=== PATIENT | female | born 1930 | race Caucasian/White ===

== ENCOUNTER 2016-08-04 11:18 | Inpatient (IN) | payer OTHER, MEDICARE ==
[~2016-08-04] VITALS: Ht 149.9 cm; Wt 99.8 kg
[~2016-08-04 11:18] MED LIST: AMLODIPINE BES2.5 M1 PO; AMLODIPINE BES2.5 MG PO; ANTIVERT 12.512.5 MG PO; APAP325 MG PO; ATORVASTATIN CA20 M1 PO; ATORVASTATIN CA20 MG PO; AUGMENTIN 875875 MG PO; BENAZEPRIL HYDR40 MG PO; CALCIUM + D 6001 TAB PO; CALCIUM600 M2 PO; COUMADIN 1 MG TA1 MG PO; COUMADIN 2 MG TA2 MG PO; COUMADIN 3 MG TA3 MG PO; COUMADIN3 M1 PO; COZAAR 100MG T100 MG PO; COZAAR 50MG TAB50 MG PO; DOXYCYCLINE MO100 MG PO; DOXYCYCLINE100 MG PO; DUONEB 3 MG/3 ML3 ML INH/SOL; ELOCON0.1%; ESCITALOPRAM OX20 MG PO; ESCITALOPRAM20 MG PO; FLOVENT HF0.11 MG/Ac INH; FUROSEMIDE40 M1 PO; FUROSEMIDE40 MG PO; HYDROXYZINE50 MG PO; K-TAB ER20 MEQ PO; LASIX40 M1 PO; LASIX40 MG PO; LIDODERM 5% PAT1 PAT EXT; MASON NATURAL2000 IU PO; MECLIZINE HCL25 M1 PO; METOPROLOL SUC100 MG PO; METOPROLOL SUCC50 M2 PO; MIRALAX17 G1 PO; MIRALAX17 GM PO; MULTI-DAY VITA1 EACH PO; Mucinex PO; NATURE'S BLEND400 IU PO; OXYCODONE HYDRO10 M1 PO; OXYCODONE5 MG PO; PERCOCET 325 MG1 TA2 PO; PREDNISONE 20MG20 MG PO; PRILOSEC 20MG C20 MG PO; PRILOSEC10 MG PO; PROLIXIN DEC25 MG/ML IV; ROXICODONE5 MG PO; Robitussin PO; TOPROL XL 50MG50 MG PO; TRIAMCINOL0.1 %/453 TOP; TYLENOL500 MG PO; VESICARE 10MG10 MG PO; VESICARE10 MG PO; VITAMIN D1000 IU PO; VITAMIN D31000 IU PO; WARFARIN SODIUM2 M1 PO; WARFARIN SODIUM2 MG PO
--- NOTE | 2016-08-04 11:20 | ED CARDIAC/CP/PALPITATIONS ---
History of Present Illness General Chief Complaint: Dyspnea (COPD, CHF, Other) Stated Complaint: SHORTNESS OF BREATH, CHF Source: patient, family, old records, EMS Exam Limitations: no limitations Vital Signs & Intake/Output Vital Signs & Intake/Output Vital Signs Date Time Temp Pulse Resp B/P Pulse O2 O2 Flow FiO2 Ox Delivery Rate 08/06 1600 95 Nasal 5.0L Cannula 08/06 1530 98.8 78 20 132/74 94 Nasal 5.0L Cannula 08/06 1029 136/70 08/06 1028 136/70 08/06 0822 98.1 75 20 136/70 96 Nasal 6.0L Cannula 08/06 0800 Nasal 6.0L Cannula 08/06 0122 72 96 08/06 0036 98.2 73 20 118/68 96 BIPAP 08/06 0000 CPAP 6.0L 08/05 2239 68 94 ED Intake and Output 08/06 0000 08/05 1200 Intake Total 800 120 Output Total 690 300 Balance 110 -180 Intake, IV 20 Intake, Oral 780 120 Output, Urine 690 300 Allergies Coded Allergies: Penicillins (RASH 04/12/16) adhesive tape (RASH/ITCHING 04/12/16) cephalexin (HIVES 04/12/16) Reconcile Medications Albuterol Sulfate 0.63 MG/3 ML VIAL.NEB 1 Vial NEB Q2 HRS NEEDED PRN SHORTNESS OF BREATH (Reported) Amlodipine Besylate 5 MG TABLET 1 TAB PO DAILY HIGH BLOOD PRESSURE (Reported) Atorvastatin Calcium 20 MG TABLET 1 TAB PO DAILY CHOLESTEROL (Reported) Calcium Carbonate (TUMS) 200 MG CALCIUM (500 MG) TAB.CHEW 3 TAB PO BID SUPPLEMENT (Reported) Calcium Carbonate (Calcium) 600 MG TABLET 1 TAB PO DAILY SUPPLEMENT (Reported ) Escitalopram Oxalate 20 MG TABLET 0.5 TAB PO DAILY MENTAL HEALTH (Reported) Furosemide 40 MG TABLET 2 TAB PO QAM DIURETIC (Reported) Furosemide (Lasix) 40 MG TABLET 1 TAB PO 1700 DIURETIC (Reported) Metoprolol Succinate 50 MG TAB.ER.24H 1 TAB PO DAILY HEART/BP (Reported) Multivitamin (Multi-Day Vitamins) 1 EACH TABLET 1 TAB PO DAILY SUPPLEMENT ( Reported) Pantoprazole Sodium (Protonix) 40 MG TABLET.DR 1 TAB PO DAILY ACID REFLUX ( Reported) Polyethylene Glycol 3350 (Miralax) 17 GRAM POWD.PACK 1 PAC PO DAILY PRN CONSTIPATION (Reported) Polyethylene Glycol 3350 (Miralax) 17 GM POWD.PACK 0.5 PAC PO DAILY GI ( Reported) dissolve in water Potassium Chloride (K-Tab ER) 20 MEQ TABLET.ER 1 TAB PO DAILY SUPPLEMENT ( Reported) Sennosides (Senna) 8.6 MG TABLET 2 TAB PO BED TIME PRN CONSTIPATION (Reported ) Solifenacin Succinate (Vesicare) 10 MG TABLET 1 TAB PO Q48 BLADDER (Reported) Warfarin Sodium 2 MG TABLET 1 TAB PO AD BLOOD THINNER (Reported) Warfarin Sodium (Coumadin) 3 MG TABLET 1 TAB PO AD BLOOD THINNER (Reported) Triage Nurses Notes Reviewed? yes Onset: Gradual Duration: getting worse Timing: recent history Radiation: no radiation Activities at Onset: none HPI: PT is a 85-year-old woman with past medical history of hypertension, Afib on coumadin, AOrtic valve (bioprosthetic), obstructive sleep apnea on CPAP, chronic LE edema on lasix, pulmonary HTN, CHF, DEMENTIA, patient had a right hip fracture repaired at [facility] BY DR MICHELLE 3 weeks ago and since patient has been living in [facility] course patient was brought in by ambulance from facility for a 5 day history of gradual onset of worsening dyspnea and generalized weakness and is noted through W 10 altered mental status. Patient since a rib fracture in the fall has been on oxygen 2 L at all times however it is noted that W 10 dictates that 4 L oxygen was administered today for shortness breath and which her saturation was 88%. It is noted a patient per OB 10 received 40 mg of by mouth Lasix at 9 AM today. EMS put a nitroglycerin paste on patient's chest Patient does complain of persistent cough tactile fevers and generalized weakness and fatigue No change in lower extremity swelling Denies any chest pain and arm pain jaw pain nausea vomiting (KELTON SUERO) Past History Travel History Traveled to [place] past 21 day No Medical History Any Pertinent Medical History? see below for history Neurological: NONE EENT: NONE Cardiovascular: AFIB, aortic stenosis, hyperlipidemia, HYPERTENSION Respiratory: 2-3L NC DEPENDENT Gastrointestinal: constipation Hepatic: NONE Renal: NONE Musculoskeletal: osteoarthritis, osteoporosis, CELLULITIS CONTACT DERMATITIS Psychiatric: NONE Endocrine: NONE Blood Disorders: NONE Cancer(s): NONE PLASTERER SPOT/Reproductive: NONE History of MRSA: No History of VRE: No History of CDIFF: No Surgical History Surgical History: AORITC VALVE REPLACEMENT right shoulder replacement left hip replacement Psychosocial History Who do you live with Family Services at Home None What is your primary language Northern Irish Family History Hx Contributory? No (KELTON SUERO) Review of Systems Review of Systems Constitutional: Reports: see HPI, fever, malaise, weakness. EENTM: Reports: no symptoms. Respiratory: Reports: see HPI, cough, short of breath. Cardiovascular: Reports: see HPI, peripheral edema. Denies: chest pain. GI: Reports: no symptoms. Genitourinary: Reports: no symptoms. Musculoskeletal: Reports: no symptoms. Skin: Reports: no symptoms. Neurological/Psychological: Reports: no symptoms. Hematologic/Endocrine: Reports: no symptoms. Immunologic/Allergic: Reports: no symptoms. All Other Systems: Reviewed and Negative (KELTON SUERO) Physical Exam Physical Exam General Appearance: obese, MILD RESPIRATORY DISTRESS Respiratory: chest non-tender, quiet respiration, decreased breath sounds, wheezing, respiratory distress (MILD) Cardiovascular: irregularly irregular Comments: HEENT: Normal EENT exam, extraocular motion intact, no nystagmus. Pupils equally round and reactive to light and accommodation. Nose is atraumatic. External auditory canal and Tympanic membranes clear. Pharynx normal. No swelling or edema. Neck: Supple, no lymphadenopathy, normal range of motion without pain or tenderness Back: Nontender, no CVA tenderness. Cardiovascular: Regular rate and rhythms no murmurs rubs or gallops, normal JVP Abdomen: Soft, nontender nondistended, no appreciable organomegaly. Normal bowel sounds. No ascites Extremity: +1 pitting edema bilateral lower extremities, no calf tenderness to palpation, normal and equal pulses. Pedal pulses +2 bilaterally Neuro: Alert oriented x3, motor sensory normal, Skin: No appreciable rash on exposed skin, skin is warm and dry. Psych: Mood and affect is normal, memory and judgment is normal. Core Measures ACS in differential dx? Yes Severe Sepsis Present: No Septic Shock Present: No (KETLON SUERO) Progress Differential Diagnosis: AMI, aortic dissection, atrial fibrillation, cholecystitis, CHF/pulm edema, costochondritis, hyperkalemia, hypovolemia, hyperthyroid, hyperventilation, intracranial hemorrhage, musculoskeletal pain, myocarditis, pancreatitis, pericarditis, pneumonia, pneumothorax, PSVT, pulmonary embolism, PUD/GERD, PVCs/PACs, respiratory failure, rib fracture, sepsis, unstable angina, V-fib/V-Tach, WPW syndrome Plan of Care: Orders Procedure Date/time Status PROTHROMBIN TIME 08/07 599 Active CBC WITHOUT DIFFERENTIAL 08/07 599 Active BASIC ELECTROLYTES PLUS BUN&CR 08/07 599 Active Ward, Insertion/Removal/Asses 08/06 1026 Active C.DIFFICILE 08/06 0918 Active HEPATIC FUNCTION PANEL 08/06 0642 Complete Lab Add-on Test 08/06 UNK Active OXYGEN 08/05 UNK Complete OXYGEN DAILY CHARGE 08/05 UNK Complete CONTIN. POS. AIRWAY PRESS. CHG 08/05 UNK Complete Current Medications Sig/Saulo Start time Last Medication Dose Stop Time Status Admin Docusate Sodium 100 MG DAILY NEEDED PRN 08/05 1530 AC (Colace) Senna 187 MG AT BEDTIME PRN 08/05 1530 AC (Senokot) Polyethylene Glycol 17 GM DAILY PRN 08/04 1930 AC (Miralax) Laboratory Tests 08/06/16 0642: Anion Gap 7, Estimated GFR > 60, BUN/Creatinine Ratio 17.1, Magnesium 2.0, Total Bilirubin 1.6 H, Direct Bilirubin 0.5 H, AST 22, ALT 33, Alkaline Phosphatase 114, Total Protein 6.6, Albumin 3.6, PT 27.2 H, INR 2.62 H, CBC w Diff NO MAN DIFF REQ, RBC 3.68 L, MCV 88.3, MCH 28.1, RDW 19.2 H, MPV 9.5, Gran % 84.3 H, Lymphocytes % 3.5 L, Monocytes % 7.3, Eosinophils % 4.3, Basophils % 0.6, Absolute Granulocytes 10.2 H, Absolute Lymphocytes 0.4 L, Absolute Monocytes 0.9 H, Absolute Eosinophils 0.5, Absolute Basophils 0.1, PUBS MCHC 31.9 L Microbiology 08/06 1555 STOOL: Clostridium difficile Toxin A & B - RECD Patient initially was noted to have mild respiratory distress however with 6 L with a nonrebreather oxygen saturation was noted to be 94% and patient has has been stable since. Patient has concerns of CHF exacerbation, however CT scan is pending for rule out pulmonary embolism. Family members were hesitant on the administering antibiotics for patients for concerns of pneumonia and which they want to wait until the CT scan was resulted for concerns of unwarranted antibiotics and concerns of C. difficile. After CT scan was resulted there is no consent a pulmonary embolism however there are concerns of CHF and infectious process such as pneumonia is not officially ruled out and which patient does present with fevers not feeling well and cough and due to multiple comorbidities the patient will be given prophylactic treatment for hospital-acquired pneumonia patient does have a cephalosporin allergy and with moxifloxacin was administered Discussed admission with Dr. KNOWLES who discussed admission with Dr. Shell who will admit to telemetry (MYLES ANTONIO,KELTON) Diagnostic Imaging: Viewed by Me: CT Scan. Radiology Impression: SEE COMMENTS Initial ED EKG: ATRIAL FIBRILLATION NOTED IRREGULAR HEART RATE 92 BPM Comments: PATIENT: DANYELL PETER PRESENT AGE: 85 PATIENT ACCOUNT NO: [id number] : [birth year] LOCATION: [facility] ORDERING PHYSICIAN: KELTON ANTONIO SERVICE DATE: 08/04/16 EXAM TYPE: CAT - CTA CHEST-PULMONARY EMBOLISM EXAMINATION: CT ANGIOGRAM OF THE CHEST WITH AND WITHOUT CONTRAST (CT PULMONARY ANGIOGRAM FOR PE) CLINICAL INFORMATION: Recent surgery. Elevated d-dimer. Shortness of breath. COMPARISON: 06/12/2016. TECHNIQUE: Prior to contrast administration, noncontrast localization images were obtained. Subsequently, multidetector volumetric imaging was performed from the thoracic inlet to below the diaphragms following the administration of 125 mL Optiray 350 intravenous contrast. No contrast reaction reported Sagittal, coronal, and MIP oblique sagittal reformatted images were obtained on the CT workstation, uploaded to PACS, and reviewed. Total exam dose-length product 560.35 mGy-cm FINDINGS: QUALITY OF STUDY/CONTRAST BOLUS: Satisfactory contrast bolus. Evaluation is limited by patient's respiratory motion and streak artifact from her arms being down, as well as from the contrast bolus. PULMONARY ARTERIES: No central pulmonary emboli. Evaluation of the segmental and subsegmental pulmonary arteries is limited. THORACIC AORTA: No evidence of thoracic aortic aneurysm. Cannot evaluate for dissection, due to lack of contrast. LUNG: Patchy bilateral consolidations. Prominent interstitial lung markings and groundglass opacities. Lungs are hypoinflated. No evidence of pneumothorax. PLEURA: Trace bilateral pleural effusions. MEDIASTINUM: Cardiomegaly. Extensive coronary artery calcifications. The patient is status post coronary artery bypass grafting. Aortic valve prosthesis. No pericardial effusion. Mediastinal lymphadenopathy. For example, there is a 2.2 cm precarinal lymph node. This appears increased since the prior study. No evidence of septal bowing or right heart strain. CHEST WALL/AXILLA: No evidence of axillary lymphadenopathy. Evaluation is limited due to streak artifact. OSSEOUS STRUCTURES: Diffuse osteopenia. Multiple old healed right rib fractures and left rib fractures. Bilateral shoulder arthroplasties. Chronic compression deformity T9. UPPER ABDOMEN: Reflux of contrast into the hepatic veins. Vascular calcifications. Gaseous distention of the partially visualized bowel, better appreciated on the scanogram. IMPRESSION: 1. Markedly limited evaluation, as detailed above. No central pulmonary embolus identified. 2. Patchy bilateral lung consolidations combined with interstitial prominence and small bilateral pleural effusions in the setting of cardiomegaly. The constellation of these findings is most consistent with congestive heart failure exacerbation, although a superimposed infectious process is not excluded. 3. Reflux of contrast into the hepatic veins is most suggestive of right heart dysfunction. 4. Mediastinal lymphadenopathy, increased since the prior study. 5. Other nonacute findings, as above. (KELTON SUERO) Departure Departure Disposition: STILL A PATIENT Condition: Stable Clinical Impression Primary Impression: CHF (congestive heart failure) Secondary Impressions: Pneumonia Referrals: TONIA VASQUEZ,CORONA Mota Departure Forms: Customer Survey General Discharge Information Admission Note Spoke With: CAMRYN SHELL MD Documentation of Exam: Documentation of any treatments & extenuating circumstances including Concerns Regarding Discharge (functional status, medication knowledge or non-compliance, living conditions, etc.) that warrant an admission rather than observation: [Dr. Shell will admit the patient under telemetry for concern of CHF and hospital- acquired pneumonia. Patient requires IV diuresis, cardiology consultation, echocardiogram, repeat blood work, IV antibiotics, blood cultures currently pending. Outpatient treatment at this time would be medically harmful] (KELTON SUERO) PA/ADMINISTRATIVE DIRECTOR Co-Sign Statement Statement: ED Attending supervision documentation- x I saw and evaluated the patient. I have also reviewed all the pertinent lab results and diagnostic results. I agree with the findings and the plan of care as documented in the PA's/ADMINISTRATIVE DIRECTOR's documentation. [] I have reviewed the ED Record and agree with the PA's/ADMINISTRATIVE DIRECTOR's documentation. [] Additions or exceptions (if any) to the PAs/ADMINISTRATIVE DIRECTOR's note and plan are summarized below: [] (BENSON VASQUEZ,JOSEPHINE) Critical Care Note Critical Care Note Critical Care Time: non-applicable (MYLES ANTONIO,KELTON) and subsegmental pulmonary arteries is limited. THORACIC AORTA: No evidence of thoracic aortic aneurysm. Cannot evaluate for dissection, due to lack of contrast. LUNG: Patchy bilateral consolidations. Prominent interstitial lung markings and groundglass opacities. Lungs are hypoinflated. No evidence of pneumothorax. PLEURA: Trace bilateral pleural effusions. MEDIASTINUM: Cardiomegaly. Extensive coronary artery calcifications. The patient is status post coronary artery bypass grafting. Aortic valve prosthesis. No pericardial effusion. Mediastinal lymphadenopathy. For example, there is a 2.2 cm precarinal lymph node. This appears increased since the prior study. No evidence of septal bowing or right heart strain. CHEST WALL/AXILLA: No evidence of axillary lymphadenopathy. Evaluation is limited due to streak artifact. OSSEOUS STRUCTURES: Diffuse osteopenia. Multiple old healed right rib fractures and left rib fractures. Bilateral shoulder arthroplasties. Chronic compression deformity T9. UPPER ABDOMEN: Reflux of contrast into the hepatic veins. Vascular calcifications. Gaseous distention of the partially visualized bowel, better appreciated on the scanogram. IMPRESSION: 1. Markedly limited evaluation, as detailed above. No central pulmonary embolus identified. 2. Patchy bilateral lung consolidations combined with interstitial prominence and small bilateral pleural effusions in the setting of cardiomegaly. The constellation of these findings is most consistent with congestive heart failure exacerbation, although a superimposed infectious process is not excluded. 3. Reflux of contrast into the hepatic veins is most suggestive of right heart dysfunction. 4. Mediastinal lymphadenopathy, increased since the prior study. 5. Other nonacute findings, as above. Departure Departure Disposition: STILL A PATIENT Condition: Stable Clinical Impression Primary Impression: CHF (congestive heart failure) Secondary Impressions: Pneumonia Referrals: TONIA VASQUEZ,CORONA Mota Departure Forms: Customer Survey General Discharge Information Admission Note Spoke With: CAMRYN SHELL MD Documentation of Exam: Documentation of any treatments & extenuating circumstances including Concerns Regarding Discharge (functional status, medication knowledge or non-compliance, living conditions, etc.) that warrant an admission rather than observation: [Dr. Shell will admit the patient under telemetry for concern of CHF and hospital- acquired pneumonia. Patient requires IV diuresis, cardiology consultation, echocardiogram, repeat blood work, IV antibiotics, blood cultures currently pending. Outpatient treatment at this time would be medically harmful] Critical Care Note Critical Care Note Critical Care Time: non-applicable
--- NOTE | 2016-08-04 11:43 | NUR ---
PT BIBA FROM [facility] FOR EVAL OF INCREASED SOB AND EXACERBATION OF CHF. PT IS 3 WEEKS S/P RIGHT HIP SURGERY. REPORTS SHE HAS HAD PRODUCTIVE COUGH WITH YELLOW MUCUS, SORE THROAT, NASAL CONGESTION, AND HEADACHE FOR 3 DAYS. PER EMS PT WAS GIVING A BREATHING TX, C-PAP, AND 1" NITRO ENROUTE. UPON ARRIVAL, PT 02 SAT AT 82-84% OF 4L O2. PT PLACED ON 100% NON-REBREATHER UPON ARRIVAL AND O2 SAT NOW 98%. PT DENIES CP OR V/D. STATES SHE HAS NOT BEEN ABLE TO TOLERATE FOOD FOR 3 DAYS SECONDARY TO NAUSEA. PT CHANGED INTO GOWN AND PLACED ON BOMBSIGHT SPECIALIST. PACO REIS AT BEDSIDE TO EVALUATE. WILL MONITOR.
--- NOTE | 2016-08-04 12:17 | NUR ---
RESP THERAPIST CALLED TO ADMINISTER COMBI MED NEB TX AND PERFORM ABG.
--- NOTE | 2016-08-04 12:46 | NUR ---
LABS DRAWN. 1ST CULTURES, LAV, YELLOW, BLUE, AND CHAMBERS SENT TO LAB. 20G IV PLACED IN RIGHT AC. FLUSHED PER PROTOCOL. NO REDNESS, SWELLING, PAIN, OR HEAT NOTED AT SITE. LASIX, 60MG, ADMINISTERED PER EMAR. RESPIRATORY AT BEDSIDE TO ADMINISTER TREATMENT AND DRAW ABGS. PT TOLERATED PROCEDURES WELL.
--- NOTE | 2016-08-04 12:57 | RADIOLOGY REPORT ---
EXAMINATION: XR PORTABLE CHEST CLINICAL INFORMATION: Shortness of breath and congestive heart failure. COMPARISON: Chest x-ray 01/02/[address] scan of the chest 04/12/2016. TECHNIQUE: Portable AP view of the chest was obtained. FINDINGS: The lung cerrato are poorly expanded. The cardiac silhouette is prominent and there are increased interstitial markings in the left mid and lower zones and the right midzone. Consolidation at the left base cannot be excluded. There is prominence of the central pulmonary vasculature. There are no definite pleural effusions. There are sequelae of median sternotomy and bilateral shoulder arthroplasties. IMPRESSION: 1. There is cardiomegaly and increased interstitial markings with prominent central pulmonary vasculature, consistent with congestive heart failure. Underlying consolidation at the left base cannot be excluded.
[2016-08-04 13:02] LABS: ABSOLUTE BASOPHIL COUNT 0 /CUMM (0.0-0.2); ABSOLUTE EOSINOPHIL COUNT 0.1 /CUMM (0.0-0.7); ABSOLUTE GRANULOCYTE CT 14.8 /CUMM (1.4-6.5); ABSOLUTE LYMPH COUNT 0.3 /CUMM (1.2-3.4); ABSOLUTE MONOCYTE COUNT 0.8 /CUMM (0.10-0.60); BASOPHIL % 0.1 % (0.0-2.0); EOSINOPHIL % 0.5 % (0-5); GRANULOCYTE % 92.3 % (42.2-75.2); MEAN CORPUSCULAR HGB 27.9 PG (27.0-31.0); MEAN CORPUSCULAR VOLUME 87.3 FL (81.0-99.0); MEAN PLATELET VOLUME 9.6 FL (7.4-10.4); PLATELET COUNT 456 /CUMM (130-400); RBC DISTRIBUTION WIDTH 19.3 % (11.5-14.5); RED BLOOD CELL CT 4.01 /CUMM (4.20-5.40)
[2016-08-04 13:05] LABS: PT 41.7 SEC (9.4-12.5); PTT 35 SEC (25-37)
--- NOTE | 2016-08-04 13:23 | NUR ---
CRITICAL TEST RESULTS [id number] DANYELL PETER 85 F TESTS AND RESULTS: PT 41.7; INR 4.03 Results received and read back by: MONTSERRAT MULTANI Results received date and time: 08/04/16 1324 The following provider was notified of the results, and read the results back: KELTON ANTONIO Notified date and time: 08/04/16 at 1324
--- NOTE | 2016-08-04 13:46 | NUR ---
PERRY CATHETER PLACED. STERILE PROCEDURE MAINTAINED. 270CC OF DARK YELLOW URINE RETURN. PT TOLERATED PROCEDURE WELL. PT TRANSPORTED TO CT-SCAN AT THIS TIME WITH THIS R.N. ACCOMPANYING TO MONITOR.
--- NOTE | 2016-08-04 14:16 | NUR ---
FLU SWAB OBTAINED AND SENT TO LAB.
--- NOTE | 2016-08-04 14:31 | NUR ---
URINE COLLECTED. TRIO SENT TO LAB.
--- NOTE | 2016-08-04 15:15 | NUR ---
VANCOMYCIN ORDERED. PER PACO BUENO, ALL ANTIBIOTICS ARE TO BE HELD UNTIL RESULTS OF CT-SCAN RETURNS PER FAMILY REQUEST.
--- NOTE | 2016-08-04 16:09 | CT SCAN REPORT ---
EXAMINATION: CT ANGIOGRAM OF THE CHEST WITH AND WITHOUT CONTRAST (CT PULMONARY ANGIOGRAM FOR PE) CLINICAL INFORMATION: Recent surgery. Elevated d-dimer. Shortness of breath. COMPARISON: 06/12/2016. TECHNIQUE: Prior to contrast administration, noncontrast localization images were obtained. Subsequently, multidetector volumetric imaging was performed from the thoracic inlet to below the diaphragms following the administration of 125 mL Optiray 350 intravenous contrast. No contrast reaction reported Sagittal, coronal, and MIP oblique sagittal reformatted images were obtained on the CT workstation, uploaded to PACS, and reviewed. Total exam dose-length product 560.35 mGy-cm FINDINGS: QUALITY OF STUDY/CONTRAST BOLUS: Satisfactory contrast bolus. Evaluation is limited by patient's respiratory motion and streak artifact from her arms being down, as well as from the contrast bolus. PULMONARY ARTERIES: No central pulmonary emboli. Evaluation of the segmental and subsegmental pulmonary arteries is limited. THORACIC AORTA: No evidence of thoracic aortic aneurysm. Cannot evaluate for dissection, due to lack of contrast. LUNG: Patchy bilateral consolidations. Prominent interstitial lung markings and groundglass opacities. Lungs are hypoinflated. No evidence of pneumothorax. PLEURA: Trace bilateral pleural effusions. MEDIASTINUM: Cardiomegaly. Extensive coronary artery calcifications. The patient is status post coronary artery bypass grafting. Aortic valve prosthesis. No pericardial effusion. Mediastinal lymphadenopathy. For example, there is a 2.2 cm precarinal lymph node. This appears increased since the prior study. No evidence of septal bowing or right heart strain. CHEST WALL/AXILLA: No evidence of axillary lymphadenopathy. Evaluation is limited due to streak artifact. OSSEOUS STRUCTURES: Diffuse osteopenia. Multiple old healed right rib fractures and left rib fractures. Bilateral shoulder arthroplasties. Chronic compression deformity T9. UPPER ABDOMEN: Reflux of contrast into the hepatic veins. Vascular calcifications. Gaseous distention of the partially visualized bowel, better appreciated on the scanogram. IMPRESSION: 1. Markedly limited evaluation, as detailed above. No central pulmonary embolus identified. 2. Patchy bilateral lung consolidations combined with interstitial prominence and small bilateral pleural effusions in the setting of cardiomegaly. The constellation of these findings is most consistent with congestive heart failure exacerbation, although a superimposed infectious process is not excluded. 3. Reflux of contrast into the hepatic veins is most suggestive of right heart dysfunction. 4. Mediastinal lymphadenopathy, increased since the prior study. 5. Other nonacute findings, as above.
--- NOTE | 2016-08-04 17:22 | NUR ---
22G IV PLACED IN RIGHT WRIST BY MONTSERRAT KUMARI. FLUSHED PER PROTOCOL. NO REDNESS, SWELLING, PAIN, OR HEAT NOTED AT SITE. PT TOLERATED PROCEDURE WELL.
--- NOTE | 2016-08-04 17:58 | NUR ---
PT ADMITTED TO ROOM 185
--- NOTE | 2016-08-04 18:48 | NUR ---
CALLED X 2 TO REC'V REPORT, NO ONE PICKED UP. PLEASE CALL [phone] AT YOUR CONVENIENCE. THANK YOU
--- NOTE | 2016-08-04 18:59 | History & Physical ---
SUNG VASQUEZ,[facility] 08/04/16 8085: General Information and HPI MD Statement: I have seen and personally examined DANYELL HOOKER and documented this H& P. The patient is a 85 year old F who presented with a patient stated chief complaint of [shortness of breath and weakness for 1 day]. Source of Information: patient, family, old records, W10 Exam Limitations: dementia History of Present Illness: Mrs. Hooker is a 85-year-old female with past medical history significant for hypertension, Afib on coumadin, aortic valve(bioprosthetic), obstructive sleep apnea on CPAP, chronic LE edema on lasix, pulmonary HTN, recent history of fall and fracture of left hip and multiple ribs, BIBA from assisted living facility ( [facility]) with CC of KELSIE and akhil. Most of the history was obtained from the patient's daughter at bedside at the patient has baseline of dementia and she is disoriented to time and place. The daughter mentioned that over last weekend patient had difficulty breathing and weakness to point that there assisting facility held the PT sessions, got of medical evaluation by a physician at the facility and chest x-ray was negative for pneumonia. Patient was doing fine on Wednesday, this morning she woke up and felt"very sick"and was brought to the ED for further evaluation. Patient reported cough with some sputum, denied any fever, chills, chest pain, palpitation, nausea, vomiting, abdominal pain, diarrhea or constipation, urinary symptoms. Patient has sleep obstructive apnea on BiPAP at night. Allergies/Medications Allergies: Coded Allergies: Penicillins (RASH 04/12/16) adhesive tape (RASH/ITCHING 04/12/16) cephalexin (HIVES 04/12/16) Home Med list Albuterol Sulfate 0.63 MG/3 ML VIAL.NEB 1 Vial NEB Q2 HRS NEEDED PRN SHORTNESS OF BREATH (Reported) Amlodipine Besylate 5 MG TABLET 1 TAB PO DAILY HIGH BLOOD PRESSURE (Reported) Atorvastatin Calcium 20 MG TABLET 1 TAB PO DAILY CHOLESTEROL (Reported) Calcium Carbonate (TUMS) 200 MG CALCIUM (500 MG) TAB.CHEW 3 TAB PO BID SUPPLEMENT (Reported) Calcium Carbonate (Calcium) 600 MG TABLET 1 TAB PO DAILY SUPPLEMENT (Reported ) Escitalopram Oxalate 20 MG TABLET 0.5 TAB PO DAILY MENTAL HEALTH (Reported) Furosemide 40 MG TABLET 2 TAB PO QAM DIURETIC (Reported) Furosemide (Lasix) 40 MG TABLET 1 TAB PO 1700 DIURETIC (Reported) Metoprolol Succinate 50 MG TAB.ER.24H 1 TAB PO DAILY HEART/BP (Reported) Multivitamin (Multi-Day Vitamins) 1 EACH TABLET 1 TAB PO DAILY SUPPLEMENT ( Reported) Pantoprazole Sodium (Protonix) 40 MG TABLET.DR 1 TAB PO DAILY ACID REFLUX ( Reported) Polyethylene Glycol 3350 (Miralax) 17 GRAM POWD.PACK 1 PAC PO DAILY PRN CONSTIPATION (Reported) Polyethylene Glycol 3350 (Miralax) 17 GM POWD.PACK 0.5 PAC PO DAILY GI ( Reported) dissolve in water Potassium Chloride (K-Tab ER) 20 MEQ TABLET.ER 1 TAB PO DAILY SUPPLEMENT ( Reported) Sennosides (Senna) 8.6 MG TABLET 2 TAB PO BED TIME PRN CONSTIPATION (Reported ) Solifenacin Succinate (Vesicare) 10 MG TABLET 1 TAB PO Q48 BLADDER (Reported) Warfarin Sodium 2 MG TABLET 1 TAB PO AD BLOOD THINNER (Reported) Warfarin Sodium (Coumadin) 3 MG TABLET 1 TAB PO AD BLOOD THINNER (Reported) Past History Travel History Traveled to [place] past 21 day No Medical History Neurological: NONE EENT: NONE Cardiovascular: AFIB, aortic stenosis, hyperlipidemia, HYPERTENSION Respiratory: 2-3L NC DEPENDENT Gastrointestinal: constipation Hepatic: NONE Renal: NONE Musculoskeletal: osteoarthritis, osteoporosis, CELLULITIS CONTACT DERMATITIS Psychiatric: NONE Endocrine: NONE Blood Disorders: NONE Cancer(s): NONE 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 Exam & Diagnostic Data Last 24 Hrs of Vital Signs/I&O Vital Signs Date Time Temp Pulse Resp B/P Pulse O2 O2 Flow FiO2 Ox Delivery Rate 08/04 2007 99.2 99 28 151/85 99 Non 100% ReBreather 08/04 1823 95 Non 100% ReBreather 08/04 1822 77 22 153/74 95 Non 100% ReBreather 08/04 1640 99.1 72 28 140/86 96 Non 100% ReBreather 08/04 1409 98.7 76 27 140/60 98 Non 100% ReBreather 08/04 1258 97 Non 100% ReBreather 08/04 1152 98 Non 100% ReBreather 08/04 1127 98.1 89 18 157/74 97 Non 10L ReBreather Intake & Output 08/04 1600 08/04 0800 08/04 0000 Intake Total 500 Output Total 900 Balance -400 Intake, IV 500 Output, Urine 900 Patient 91.626 kg Weight Physical Exam General Appearance Alert, Oriented X3, Cooperative, No Acute Distress Skin No Rashes, No Breakdown, No Significant Lesion HEENT Atraumatic, PERRLA, EOMI, Mucous Membr. moist/pink Neck Supple Cardiovascular irrigular irrigular Lungs decrease air entery, expiratory wheeze Abdomen Normal Bowel Sounds, Soft, No Tenderness Neurological Normal Speech, Strength at 5/5 X4 Ext, Normal Tone, Sensation Intact, Cranial Nerves 3-12 NL, Reflexes 2+ Extremities No Clubbing, No Cyanosis, bilateral lower extermity chronic erthyma, trace edemma Vascular Normal Pulses Assessment/Plan Assessment: Mrs. Hooker is a 85-year-old female with past medical history significant for hypertension, Afib on coumadin, aortic valve(bioprosthetic), obstructive sleep apnea on CPAP, chronic LE edema on lasix, pulmonary HTN, recent history of fall and fracture of left hip and multiple ribs, BIBA from assisted living facility ( [facility]) with CC of SOB and weaknes. On admission Vital signs temperature 98.1, MAXIMUM TEMPERATURE 99.2, pulse 89, blood pressure 157/74, respiration 18 with saturation 97% on nonrebreather mask Lab WBC 16, H/H 11.2/35, plat 456, NA 143, K 3.3, MG 1.8, BUN 11, Cr 0.5, Lactic acid 1<1.2, Alkaline ph 140, PBNP 5850 , troponin 0.04 PH 7.42, PCO2 46, PaO2 92, bicarbonate 30 CTA 1. Markedly limited evaluation, as detailed above. No central pulmonary embolus identified. 2. Patchy bilateral lung consolidations combined with interstitial prominence and small bilateral pleural effusions in the setting of cardiomegaly. The constellation of these findings is most consistent with congestive heart failure exacerbation, although a superimposed infectious process is not excluded. 3. Reflux of contrast into the hepatic veins is most suggestive of right heart dysfunction. 4. Mediastinal lymphadenopathy, increased since the prior study. 5. Other nonacute findings, as above. Chest x-ray IMPRESSION: There is cardiomegaly and increased interstitial markings with prominent central pulmonary vasculature, consistent with congestive heart failure. Underlying consolidation at the left base cannot be excluded. Problem list #Hypercapnia due to sleep obstructive apnea/acute exacerbation congestive heart failure/possible pneumonia -Admit to telemetry floor -Continue nonrebreather and keep oxygen above 92% -TRC -Pulmonary consultation was placed -Cardiology consultation for acute CHF exacerbation -Keep potassium above 4 and magnesium above 2 -Lasix 40 mg twice a day -Strict in and out -Hold Coumadin for supratherapeutic INR -Trend troponin and EKG -Continue home medication Code full, power of health care attorney is patient's DVT prophylaxis warfarin Diet heart healthy diet Consultation cardiology and pulmonology - As Ranked By This Provider Problem List: 1. Supratherapeutic INR Core Measures/Miscellaneous Acute Coronary Syndrome ACS Diagnosis: No Cerebrovascular Accident CVA/TIA Diagnosis: No Congestive Heart Failure CHF Diagnosis: No Venous Thromboembolism VTE Risk Factors: Acute medical illness VTE Prophylaxis Ordered Inpt: Pharm- Warfarin No [facility] VTE prophylaxis d/t: LE Edema No VTE Pharm Prophylaxis d/t: No contraindications VTE Diagnosis: No VTE Type: NONE VTE Confirmed by (Test): CT CHEST ANGIOGRAM Severe Sepsis Severe Sepsis Present: No Septic Shock Septic Shock Present: No Miscellaneous Documentation Attending Case Discussed With: CAMRYN GROVER MD Primary Care Physician: MELANI ACKERMAN MD Patient sees these Specialists Cardiology, pulmonology Level of Patient Care: Telemetry ALEXANDRA CASON 08/04/166: Resident Review Statement Resident Statement: examined this patient, discussed with financial services intern, agreed with financial services intern Other Findings: Patient is 85-year-old woman with past medical history significant for hypertension, atrial fibrillation on Coumadin, aortic valve bioprosthetic replacement, obstructive sleep apnea on CPAP and 2 L home oxygen due to chronic respiratory failure, chronic lower extremity edema on Lasix, pulmonary hypertension, chronic lower extremity dermatitis, recent hip fracture at surgery at [facility] was discharged to rehabilitation facility Alessio FLORES was brought into the emergency room due to worsening hypoxia, shortness of breath and worsening lower extremity edema. Patient was confused at time of interview and most of the injury was taken from daughter and son-in-law were present in room at the time of interview. According to them patient was not feeling well from couple of days and her oxygen requirement which is baseline 2 L went up to 4 L at times when she desaturated to 80s. She was becoming more and more lethargic and is hard for her to catch her breath. She uses correct lightheaded at baseline. She has mildly productive cough without any evidence of fever, chills, nausea, vomiting, any urinary or bowel complaints. The patient vital signs were temperature 98.1, pulse 89, respiratory rate 18, blood pressure 157/74 patient was saturating 97% on 100% nonrebreather. Admission labs were significant for WBC count 16.0, hemoglobin 11.2, hematocrit 35.0, platelet count 456, ABGs shows pH 7.42, PCO2 46, PO2 92, bicarbonate 30. INR is 4.03, sodium 143, potassium 3.3, chloride 97, BUN 11 and creatinine 0.5. She'll set of troponins negative with negative lactic acid, magnesium 1.8 Chest x-ray and CTA was done that showed 1. Markedly limited evaluation, as detailed above. No central pulmonary embolus identified. 2. Patchy bilateral lung consolidations combined with interstitial prominence and small bilateral pleural effusions in the setting of cardiomegaly. The constellation of these findings is most consistent with congestive heart failure exacerbation, although a superimposed infectious process is not excluded. 3. Reflux of contrast into the hepatic veins is most suggestive of right heart dysfunction. 4. Mediastinal lymphadenopathy, increased since the prior study. EKG showed atrial fibrillation with no acute ST-T wave changes On physical examination A shunt is awake and alert but not oriented to time and place Head atraumatic Neck supple no JVD Chest bilateral crackles with decreased air entry and occasional wheezes Abdomen soft nontender Moderate Lower extremity edema and chronic venous stasis/dermatitis Assessment and plan Patient is 85-year-old female with multiple comorbidities including hypertension , hyperlipidemia, recent surgery, aortic valve repair, obstructive sleep apnea on CPAP, chronic respiratory failure came with her snake shortness of breath and found to have CHF exacerbation with pulmonary congestion, questionable lung consolidation with leukocytosis, hypoxia requiring supplemental oxygen and found to have supratherapeutic INR on Coumadin. We will admit patient on telemetry floor and will take it for the following problems 1 worsening shortness of breath and hypoxia most likely due to CHF exacerbation but underlying infectious process needs to be ruled out. Patient was given IV vancomycin and Avelox as she is allergic to penicillin. We will hold antibiotics for now and will request a pulmonology evaluation in a.m. We will send sputum for culture We will trend WBCs and watch for any signs of infection Will order echocardiogram and cardiology consultation We'll increase dose of Lasix and start her on 40 mg of Lasix IV twice a day TRC and embolization Continue her home medications Problem #2 history of hypertension hyperlipidemia We'll continue her home medications Problem #3 history of atrial fibrillation on Coumadin Supratherapeutic INR. Hold Coumadin for now and recheck INR in a.m. Problem #4 history of obstructive sleep apnea on CPAP We'll continue nocturnal CPAP Problem #5 history of dementia and anxiety Will continue her home medications Patient is full code Heart healthy diet For DVT prophylaxis/supratherapeutic INR no pharmacological DVT prophylaxis needed LENORE VASQUEZ,[facility] 08/05/16 0928: Attending MD Review Statement Attending Statement Attending MD Statement: examined this patient, discuss w/resident/PA/CONSOLE MANAGER, agreed w/resident/PA/CONSOLE MANAGER, discussed with family, reviewed EMR data (avail)
[2016-08-04] MEDS ORDERED: AMLODIPINE BESYL5 M1 PO (19:11)
[2016-08-04] MEDS ORDERED: PROTONIX40 M3 PO (19:12)
[2016-08-04] MEDS ORDERED: ALBUTEROL0.63 MG/1 NEB (19:13)
[2016-08-04] MEDS ORDERED: MIRALAX17 G1 PO (19:14)
[2016-08-04] MEDS ORDERED: SENNA8.6 M3 PO (19:15)
[2016-08-04] MEDS ORDERED: TUMS200 MG PO (19:16)
--- NOTE | 2016-08-04 20:15 | NUR ---
PT TO BE TRANSFERRED TO , ROOM 185. REPORT GIVEN TO Maureen GODWIN [employer] CALLED AT THIS TIME.
[2016-08-04 21:43] VITALS: BP 124/76
--- NOTE | 2016-08-05 01:22 | NUR ---
REPPORT RECEIVED FROM NURSE D IN ED. PT ARRIVED TO FLOOR VIA STRETCHER WEARING 100% NON REBREATHER. O2 SAT 97%. RT CALLED, WILL SEE PT TO TITRATE O2. PT ALERT AND CONFUSED. NO S/S DISTRESS. FAMILY PRESENT.
[2016-08-05 08:00] VITALS: BP 110/70
[2016-08-05 08:08] LABS: ABSOLUTE BASOPHIL COUNT 0 /CUMM (0.0-0.2); ABSOLUTE EOSINOPHIL COUNT 0.3 /CUMM (0.0-0.7); ABSOLUTE LYMPH COUNT 0.5 /CUMM (1.2-3.4); ABSOLUTE MONOCYTE COUNT 0.7 /CUMM (0.10-0.60); BASOPHIL % 0.1 % (0.0-2.0); EOSINOPHIL % 2.7 % (0-5); MEAN CORPUSCULAR HGB 28.5 PG (27.0-31.0); MEAN CORPUSCULAR HGB CONC 32.5 G/DL (33.0-37.0); MEAN CORPUSCULAR VOLUME 87.6 FL (81.0-99.0); MEAN PLATELET VOLUME 9.6 FL (7.4-10.4); RBC DISTRIBUTION WIDTH 19.6 % (11.5-14.5); RED BLOOD CELL CT 3.54 /CUMM (4.20-5.40); WHITE BLOOD CELL COUNT 10.5 /CUMM (4.8-10.8)
[2016-08-05 08:34] LABS: PT 64.4 SEC (9.4-12.5)
[2016-08-05 08:58] LABS: GRANULOCYTE % 85.5 % (42.2-75.2)
[2016-08-05 08:59] LABS: PLATELET COUNT 349 /CUMM (130-400)
--- NOTE | 2016-08-05 09:27 | PN- Att Addend ---
Attending Addendum Attending Brief Note Patient reports improved breathing General Appearance: Alert, No Acute Distress Skin: Grossly normal HEENT: PEERLA Neck: Supple, No JVD Cardiovascular: Regular Rate, Normal S1, Normal S2, No Murmurs Lungs: Decreased air entry all lung cerrato Abdomen: Normal Bowel Sounds, Soft, No Tenderness Neurological: Normal Speech, Strength at 5/5 X4 Ext, Cranial Nerves 3-12 NL, Reflexes 2+ Extremities: 1+ pedal edema Vascular: Normal Pulses Assessment 85-year-old female with history of hypertension, atrial fibrillation on Coumadin , aortic valve replacement, central apnea on CPAP, chronic lower extremity edema presenting with acute respiratory distress. CTA negative for VTE however there is suggestion of bilateral opacifications with interstitial edema. I suspect her respiratory symptoms are secondary to fluid overload rather than infection. She has improved with overnight diuresis. We will continue to diurese aggressively and also get an echocardiogram. Plan Continue IV Lasix 40 mg twice a day Follow cultures and follow off antibiotics Get pulmonary and cardiology evaluation Check echocardiogram Continue other home medication Hold Coumadin for subtherapeutic INR Continue CPAP at bedtime Current Medications Sig/Saulo Start time Last Medication Dose Route Stop Time Status Admin Albuterol Sulfate 3 ML ONCE ONE 08/04 1215 DC 08/04 INH 08/04 1216 1244 Amlodipine Besylate 5 MG DAILY 08/05 1000 AC PO Atorvastatin Calcium 20 MG DAILY@1700 08/05 1700 AC PO Escitalopram Oxalate 10 MG DAILY 08/05 1000 AC PO Furosemide 40 MG BID 08/05 1000 AC IV Furosemide 0 .STK-MED ONE 08/04 1949 DC IV Furosemide 20 MG ONCE ONE 08/04 1945 DC 08/04 IV 08/04 1946 2000 Furosemide 0 .STK-MED ONE 08/04 1220 DC IV Furosemide 60 MG ONCE ONE 08/04 1215 DC 08/04 IV 08/04 1216 1245 Ipratropium [place] 2.5 ML ONCE ONE 08/04 1215 DC 08/04 INH 08/04 1216 1244 Magnesium Oxide 400 MG .STK-MED ONE 08/05 0004 DC PO 08/05 0005 Magnesium Oxide 400 MG ONE ONE 08/04 2014 DC 08/05 PO 08/04 2015 0009 Metoprolol Succinate 50 MG DAILY 08/05 1000 AC PO Moxifloxacin HCl 400 MG ONCE ONE 08/04 1630 DC 08/04 IV 08/04 1631 1818 Non-Formulary 0 SEE ADMIN CRITERIA 08/04 1330 CAN Medication ANY Oxybutynin Chloride 10 MG Q48 08/06 1000 AC PO Polyethylene Glycol 17 GM DAILY PRN 08/04 1929 AC PO Potassium Chloride 20 MEQ DAILY 08/05 1000 AC PO Potassium Chloride 0 .STK-MED ONE 08/04 1948 DC PO Potassium Chloride 60 MEQ ONCE ONE 08/04 193 DC 08/04 PO 08/04 Vancomycin HCl 0 .STK-MED ONE 08/04 1641 DC .ROUTE Vancomycin HCl 1,000 MG ONCE ONE 08/04 1315 DC 08/04 Dextrose/Water 250 ML IV 08/04 1414 1652 Laboratory Tests 08/05 08/05 08/04 08/04 0655 0225 2035 1555 Chemistry Sodium (137 - 145 mmol/L) 143 Potassium (3.5 - 5.1 mmol/L) 3.7 Chloride (98 - 107 mmol/L) 102 Carbon Dioxide (22 - 30 mmol/L) 30 Anion Gap (5 - 16) 11 BUN (7 - 17 mg/dL) 11 Creatinine (0.5 - 1.0 mg/dL) 0.6 Estimated GFR (>60 ml/min) > 60 BUN/Creatinine Ratio (7 - 25 %) 18.3 Lactic Acid (0.7 - 2.1 mmol/L) 1.0 Troponin I (< 0.11 ng/ml) 0.06 0.06 Coagulation PT (9.4 - 12.5 SEC) 64.4 *H INR (0.90 - 1.19) 6.25 *H Hematology CBC w Diff NO MAN DIFF REQ WBC (4.8 - 10.8 /CUMM) 10.5 RBC (4.20 - 5.40 /CUMM) 3.54 L Hgb (12.0 - 16.0 G/DL) 10.1 L Hct (37 - 47 %) 31.0 L MCV (81.0 - 99.0 FL) 87.6 MCH (27.0 - 31.0 PG) 28.5 RDW (11.5 - 14.5 %) 19.6 H Plt Count (130 - 400 /CUMM) 349 MPV (7.4 - 10.4 FL) 9.6 Gran % (42.2 - 75.2 %) 85.5 H Lymphocytes % (20.5 - 51.1 %) 4.6 L Monocytes % (1.7 - 9.3 %) 7.1 Eosinophils % (0 - 5 %) 2.7 Basophils % (0.0 - 2.0 %) 0.1 Absolute Granulocytes (1.4 - 6.5 /CUMM) 9.0 H Absolute Lymphocytes (1.2 - 3.4 /CUMM) 0.5 L Absolute Monocytes (0.10 - 0.60 /CUMM) 0.7 H Absolute Eosinophils (0.0 - 0.7 /CUMM) 0.3 Absolute Basophils (0.0 - 0.2 /CUMM) 0 PUBS MCHC (33.0 - 37.0 G/DL) 32.5 L 08/04 08/04 1420 1256 Blood Gas pH (7.35 - 7.45 PH) 7.42 pCO2 (35 - 45 TORR) 46 H pO2 (80 - 100 TORR) 92 HCO3 (21 - 28 MEQ/L) 30 H ABG O2 Sat (Measured) (>96.0 %) 96.0 Carboxyhemoglobin (1.5 - 5.0 %) 1.0 L O2 Concentration % 100% O2 Delivery Method NRB Miscellaneous Phlebotomy Draw Site RIGHT RADIAL Urines Urinalysis LIGHT H Urine Color (YEL,AMB,STR) YEL Urine Clarity (CLEAR) CLEAR Urine pH (5.0 - 8.0) 6.5 Ur Specific [place] (1.001 - 1.035) 1.015 Urine Protein (NEG,<30 MG/DL) TRACE H Urine Ketones (NEG) NEG Urine Nitrite (NEG) NEG Urine Bilirubin (NEG) NEG Urine Urobilinogen (0.1 - 1.0 EU/dl) 0.2 Ur Leukocyte Esterase (NEG) NEG Ur Microscopic SEDIMENT EXAMINED Urine RBC (0 - 5 /HPF) RARE Urine Hemoglobin (NEG) NEG Urine Glucose (N MG/DL) NEG 08/04 1230 Chemistry Sodium (137 - 145 mmol/L) 143 Potassium (3.5 - 5.1 mmol/L) 3.3 L Chloride (98 - 107 mmol/L) 97 L Carbon Dioxide (22 - 30 mmol/L) 33 H Anion Gap (5 - 16) 14 BUN (7 - 17 mg/dL) 11 Creatinine (0.5 - 1.0 mg/dL) 0.5 Estimated GFR (>60 ml/min) > 60 BUN/Creatinine Ratio (7 - 25 %) 22.0 Glucose (65 - 99 mg/dL) 140 H Lactic Acid (0.7 - 2.1 mmol/L) 1.2 Calcium (8.4 - 10.2 mg/dL) 10.0 Magnesium (1.6 - 2.3 mg/dL) 1.8 Total Bilirubin (0.2 - 1.3 mg/dL) 2.4 H AST (14 - 36 U/L) 25 ALT (9 - 52 U/L) 32 Alkaline Phosphatase (<127 U/L) 140 H Troponin I (< 0.11 ng/ml) 0.04 Ton-Q-[place]hav[place] Pept (<125 pg/mL) 5850 H Total Protein (6.3 - 8.2 g/dL) 7.4 Albumin (3.5 - 5.0 g/dL) 4.0 Globulin (1.9 - 4.2 gm/dL) 3.4 Albumin/Globulin Ratio (1.1 - 2.2 %) 1.2 Coagulation PT (9.4 - 12.5 SEC) 41.7 H INR (0.90 - 1.19) 4.03 *H APTT (25 - 37 SEC) 35 D-Dimer (70 - 232 ng/ml) 574 H Hematology CBC w Diff MAN DIFF ORDERED WBC (4.8 - 10.8 /CUMM) 16.0 H RBC (4.20 - 5.40 /CUMM) 4.01 L Hgb (12.0 - 16.0 G/DL) 11.2 L Hct (37 - 47 %) 35.0 L MCV (81.0 - 99.0 FL) 87.3 MCH (27.0 - 31.0 PG) 27.9 RDW (11.5 - 14.5 %) 19.3 H Plt Count (130 - 400 /CUMM) 456 H MPV (7.4 - 10.4 FL) 9.6 Gran % (42.2 - 75.2 %) 92.3 H Lymphocytes % (20.5 - 51.1 %) 1.8 L Monocytes % (1.7 - 9.3 %) 5.3 Eosinophils % (0 - 5 %) 0.5 Basophils % (0.0 - 2.0 %) 0.1 Absolute Granulocytes (1.4 - 6.5 /CUMM) 14.8 H Absolute Lymphocytes (1.2 - 3.4 /CUMM) 0.3 L Absolute Monocytes (0.10 - 0.60 /CUMM) 0.8 H Absolute Eosinophils (0.0 - 0.7 /CUMM) 0.1 Absolute Basophils (0.0 - 0.2 /CUMM) 0 Platelet Estimate (ADEQUATE) VERIFIED BY SMEAR Polychromasia 1+ Poikilocytosis 1+ Anisocytosis 1+ Ovalocytes 1+ PUBS MCHC (33.0 - 37.0 G/DL) 32.0 L Vital Signs Date Time Temp Pulse Resp B/P Pulse O2 O2 Flow FiO2 Ox Delivery Rate 08/05 0900 73 93 08/05 0800 97.7 70 20 110/70 93 Nasal 6.0L Cannula 08/05 0046 87 90 08/05 0000 Nasal 6.0L Cannula 08/04 2142 98.2 84 24 124/76 97 CPAP 08/04 2141 81 94 08/04 2132 CPAP 6.0L 08/04 2007 99.2 99 28 151/85 99 Non 100% ReBreather 08/04 1823 95 Non 100% ReBreather 08/04 1822 77 22 153/74 95 Non 100% ReBreather 08/04 1640 99.1 72 28 140/86 96 Non 100% ReBreather 08/04 1409 98.7 76 27 140/60 98 Non 100% ReBreather 08/04 1258 97 Non 100% ReBreather 08/04 1152 98 Non 100% ReBreather 08/04 1127 98.1 89 18 157/74 97 Non 10L ReBreather
--- NOTE | 2016-08-05 09:28 | Admission Certification ---
Admission Certification Certification Statement - As attending physician, I certify that at the time of - admission, based on clinical presentation, severity of - symptoms, need for further diagnostic testing and - therapeutic interventions, and risk of adverse outcomes - without in-hospital treatment, in my clinical assessment, - this patient requires an acute hospital stay for a minimum - of two nights or longer. I have also considered psychsocial - factors such as support system, advanced age, financial - issues, cognitive issues, and failed out-patient treatments, - past re-admission history, safety of patient, and lack of - compliance as applicable. Specific rationale supporting this admission is: CHF, hypoxic respiratory failure
--- NOTE | 2016-08-05 10:19 | Cons- Pulmonary ---
General Information and HPI Consulting Request Date of Consult: 08/05/16 Requested By: med team History of Present Illness: Mrs. Hooker is a 85-year-old female with past medical history significant for hypertension, Afib on coumadin, aortic valve(bioprosthetic), obstructive sleep apnea on CPAP, chronic LE edema on lasix, pulmonary HTN, recent history of fall and fracture of left hip and multiple ribs, BIBA from assisted living facility ( [facility]) with CC of KELSIE and akhil. PT sessions, got of medical evaluation by a physician at the facility and chest x-ray was negative for pneumonia. Patient was doing fine on Wednesday, this morning she woke up and felt"very sick"and was brought to the ED for further evaluation. Patient reported cough with some sputum, denied any fever, chills, chest pain, palpitation, nausea, vomiting, abdominal pain, diarrhea or constipation, urinary symptoms. Patient has sleep obstructive apnea on cpap at night. ROS could not be obtained as pt was sleepy Allergies/Medications Allergies: Coded Allergies: Penicillins (RASH 04/12/16) adhesive tape (RASH/ITCHING 04/12/16) cephalexin (HIVES 04/12/16) Home Med List: Albuterol Sulfate 0.63 MG/3 ML VIAL.NEB 1 Vial NEB Q2 HRS NEEDED PRN SHORTNESS OF BREATH (Reported) Amlodipine Besylate 5 MG TABLET 1 TAB PO DAILY HIGH BLOOD PRESSURE (Reported) Atorvastatin Calcium 20 MG TABLET 1 TAB PO DAILY CHOLESTEROL (Reported) Calcium Carbonate (TUMS) 200 MG CALCIUM (500 MG) TAB.CHEW 3 TAB PO BID SUPPLEMENT (Reported) Calcium Carbonate (Calcium) 600 MG TABLET 1 TAB PO DAILY SUPPLEMENT (Reported ) Escitalopram Oxalate 20 MG TABLET 0.5 TAB PO DAILY MENTAL HEALTH (Reported) Furosemide 40 MG TABLET 2 TAB PO QAM DIURETIC (Reported) Furosemide (Lasix) 40 MG TABLET 1 TAB PO 1700 DIURETIC (Reported) Metoprolol Succinate 50 MG TAB.ER.24H 1 TAB PO DAILY HEART/BP (Reported) Multivitamin (Multi-Day Vitamins) 1 EACH TABLET 1 TAB PO DAILY SUPPLEMENT ( Reported) Pantoprazole Sodium (Protonix) 40 MG TABLET.DR 1 TAB PO DAILY ACID REFLUX ( Reported) Polyethylene Glycol 3350 (Miralax) 17 GRAM POWD.PACK 1 PAC PO DAILY PRN CONSTIPATION (Reported) Polyethylene Glycol 3350 (Miralax) 17 GM POWD.PACK 0.5 PAC PO DAILY GI ( Reported) dissolve in water Potassium Chloride (K-Tab ER) 20 MEQ TABLET.ER 1 TAB PO DAILY SUPPLEMENT ( Reported) Sennosides (Senna) 8.6 MG TABLET 2 TAB PO BED TIME PRN CONSTIPATION (Reported ) Solifenacin Succinate (Vesicare) 10 MG TABLET 1 TAB PO Q48 BLADDER (Reported) Warfarin Sodium 2 MG TABLET 1 TAB PO AD BLOOD THINNER (Reported) Warfarin Sodium (Coumadin) 3 MG TABLET 1 TAB PO AD BLOOD THINNER (Reported) Review of Systems Review of Systems Constitutional: Reports: see HPI. 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 Surgical History Surgical History: AORITC VALVE REPLACEMENT right shoulder replacement left hip replacement Psychosocial History Services at Home: None Smoking Status: Never Smoked ETOH Use: denies use Illicit Drug Use: denies illicit drug use Exam & Diagnostic Data Last 24 Hrs of Vital Signs/I&O Vital Signs Date Time Temp Pulse Resp B/P Pulse O2 O2 Flow FiO2 Ox Delivery Rate 08/05 0900 73 93 08/05 0800 97.7 70 20 110/70 93 Nasal 6.0L Cannula 08/05 0046 87 90 08/05 0000 Nasal 6.0L Cannula 08/04 2142 98.2 84 24 124/76 97 CPAP 08/04 2141 81 94 08/04 2132 CPAP 6.0L 08/04 2007 99.2 99 28 151/85 99 Non 100% ReBreather 08/04 1823 95 Non 100% ReBreather 08/04 1822 77 22 153/74 95 Non 100% ReBreather 08/04 1640 99.1 72 28 140/86 96 Non 100% ReBreather 08/04 1409 98.7 76 27 140/60 98 Non 100% ReBreather 08/04 1258 97 Non 100% ReBreather 08/04 1152 98 Non 100% ReBreather 08/04 1127 98.1 89 18 157/74 97 Non 10L ReBreather Intake & Output 08/05 1600 08/05 0800 08/05 0000 Intake Total 120 120 Output Total 300 200 Balance -180 -80 Intake, Oral 120 120 Number 1 Bowel Movements Output, Urine 300 200 Patient 220 lb Weight Last 48 Hrs of Labs/Noel: Laboratory Tests 08/05/16 0655: Anion Gap 11, Estimated GFR > 60, BUN/Creatinine Ratio 18.3, PT 64.4 *H, INR 6.25 *H, CBC w Diff NO MAN DIFF REQ, RBC 3.54 L, MCV 87.6, MCH 28.5, RDW 19.6 H, MPV 9.6, Gran % 85.5 H, Lymphocytes % 4.6 L, Monocytes % 7.1, Eosinophils % 2.7, Basophils % 0.1, Absolute Granulocytes 9.0 H, Absolute Lymphocytes 0.5 L, Absolute Monocytes 0.7 H, Absolute Eosinophils 0.3, Absolute Basophils 0, PUBS MCHC 32.5 L 08/05/16 0225: Troponin I 0.06 08/04/16 2035: Troponin I 0.06 08/04/16 1555: Lactic Acid 1.0 08/04/16 1420: Urinalysis LIGHT H, Urine Color YEL, Urine Clarity CLEAR, Urine pH 6.5, Ur Specific [place] 1.015, Urine Protein TRACE H, Urine Ketones NEG, Urine Nitrite NEG, Urine Bilirubin NEG, Urine Urobilinogen 0.2, Ur Leukocyte Esterase NEG, Ur Microscopic SEDIMENT EXAMINED, Urine RBC RARE, Urine Hemoglobin NEG, Urine Glucose NEG 08/04/16 1256: pH 7.42, pCO2 46 H, pO2 92, HCO3 30 H, ABG O2 Sat (Measured) 96.0, Carboxyhemoglobin 1.0 L, O2 Concentration % 100%, O2 Delivery Method NRB, Phlebotomy Draw Site RIGHT RADIAL 08/04/16 1230: Anion Gap 14, Estimated GFR > 60, BUN/Creatinine Ratio 22.0, Glucose 140 H, Lactic Acid 1.2, Calcium 10.0, Magnesium 1.8, Total Bilirubin 2.4 H, AST 25, ALT 32, Alkaline Phosphatase 140 H, Troponin I 0.04, Kut-Q-Imzvznmxaty Pept 5850 H, Total Protein 7.4, Albumin 4.0, Globulin 3.4, Albumin/Globulin Ratio 1.2, PT 41.7 H, INR 4.03 *H, APTT 35, D-Dimer 574 H, CBC w Diff MAN DIFF ORDERED, RBC 4.01 L, MCV 87.3, MCH 27.9, RDW 19.3 H, MPV 9.6, Gran % 92.3 H, Lymphocytes % 1.8 L, Monocytes % 5.3, Eosinophils % 0.5, Basophils % 0.1, Absolute Granulocytes 14.8 H, Absolute Lymphocytes 0.3 L, Absolute Monocytes 0.8 H, Absolute Eosinophils 0.1, Absolute Basophils 0, Platelet Estimate VERIFIED BY SMEAR, Polychromasia 1+, Poikilocytosis 1+, Anisocytosis 1+, Ovalocytes 1+, PUBS MCHC 32.0 L SIGNIFICANT DATA Recent echocardiogram done [facility] reviewed which showed moderate aortic stenosis and [id number]-gvmqgvsk mitral regurgitation with mitral stenosis which was mild. Patient's pulmonary artery pressure was elevated. Her ABG done here showed she has chronic hypercarbia. 742/46/92 INR was elevated white count 10.5, hemoglobin 10.1, BUN/creatinine stable. Bilirubin was elevated upon admission. BNP was elevated. CT scan of the chest reviewed which shows that she has prominent interstitial markings bilateral pulmonary edema, increasing mediastinal lymphadenopathy. Assessment/Plan Impression/Plan: IMPRESSION: 1. Markedly limited evaluation, as detailed above. No central pulmonary embolus identified. 2. Patchy bilateral lung consolidations combined with interstitial prominence and small bilateral pleural effusions in the setting of cardiomegaly. The constellation of these findings is most consistent with congestive heart failure exacerbation, although a superimposed infectious process is not excluded. 3. Reflux of contrast into the hepatic veins is most suggestive of right heart dysfunction. 4. Mediastinal lymphadenopathy, increased since the prior study. 5. Other nonacute findings, as above. Physical Exam General Appearance Alert, Oriented X3, Cooperative, No Acute Distress Skin No Rashes, No Breakdown, No Significant Lesion HEENT Atraumatic, PERRLA, EOMI, Mucous Membr. moist/pink Neck Supple Cardiovascular irrigular irrigular Lungs decrease air entery, expiratory wheeze Abdomen Normal Bowel Sounds, Soft, No Tenderness Neurological Normal Speech, Strength at 5/5 X4 Ext, Normal Tone, Sensation Intact, Cranial Nerves 3-12 NL, Reflexes 2+ Extremities No Clubbing, No Cyanosis, bilateral lower extermity chronic erthyma, trace edemma Vascular Normal Pulses IMPRESSION This is a lady with significant obstructive sleep apnea and central apnea, compliant with CPAP, chronic atrial fibrillation on warfarin, previous aortic replacement with bioprosthetic valve, now has moderate to severe aortic stenosis , mild mitral stenosis and regurgitation (noted in the recent echocardiogram done at [facility]), chronic hypercarbic respiratory failure, severe pulmonary hypertension related to valvular heart disease and her sleep apnea with chronic hepatic congestion, Chronic cor pulmonale, significant chronic lung disease with both obstructive restrictive pulmonary physiology, 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 difficile colitis, now comes in with * Acute hypoxemic and hypercarbic respiratory failure related to acute systolic heart failure due to significant valvular heart disease and diastolic dysfunction * Chronic hypercarbia related to obesity hypoventilation syndrome with sleep apnea and central apnea, Compliant on bedtime CPAP. * Severe pulmonary hypertension with congested liver with high INR, high bilirubin related to severe pulmonary hypertension from valvular heart disease and sleep apnea. * Severe restrictive and obstructive lung disease with poor pulmonary reserve with recurrent Pseudomonas infection in the past with no active evidence of infection. * Chronic atrial fibrillation on warfarin now with supratherapeutic INR, probably related to right heart dysfunction with congested liver * Chronic cor pulmonale due to obstructive restrictive lung disease and from pulmonary hypertension with right heart failure with lower extremity edema and congested liver. * Recent Pseudomonas UTI and C. difficile. RECOMMENDATION * Continue diuresis. * Hold warfarin. * Repeat LFTs. * If Bilirubin continues to rise obtain ultrasound of the liver and gallbladder to rule out any mechanical obstruction. However, CT scan of the chest does not reveal any significant liver and gallbladder obstructive path * Keep the potassium more than 4 to prevent hypercarbia and hypochloremia. Please increase the potassium to 40 MG Q twice a day 2. She is on aggressive diuretic therapy. * Continue CPAP at bedtime and if tolerated in the afternoon if she needs it. * Discontinue any proton pump inhibitor for now as she recently had C. difficile * Hold further antibiotics. * Use as needed nebulizer therapy for wheezing. * Keep the head of bed elevated. * Keep O2 sats around 91-92% to prevent further hypercarbia. Reduce oxygen if tolerated to keep O2 sat at 92%. * Cardiology evaluation. Overall prognosis is poor and a long run. Consult Acknowledgment - Thank you for your consult request.
--- NOTE | 2016-08-05 10:27 | PN- Housestaff ---
Subjective Follow-up For: Acute exacerbation congestive heart failure Chronic hypercapnia Tele-Events Since Last Visit: Atrial fibrillation, controlled rate in 70s with PVC Subjective: Patient was seen and examined this morning, she reported sporadic dry cough, denied chest pain, palpitation, dizziness, headache. Last bowel movement was 2 days ago, denied abdominal pain, nausea vomiting. She doesn't have good appetite, didn't have her breakfast today. Review of Systems Constitutional: Denies: see HPI. Objective Last 24 Hrs of Vital Signs/I&O Vital Signs Date Time Temp Pulse Resp B/P Pulse O2 O2 Flow FiO2 Ox Delivery Rate 08/05 1221 152/88 08/05 1220 152/88 08/05 0900 73 93 08/05 0800 Nasal 6.0L Cannula 08/05 08 97.7 70 20 110/70 93 Nasal 6.0L Cannula 08/05 0046 87 90 08/05 0000 Nasal 6.0L Cannula 08/04 2142 98.2 84 24 124/76 97 CPAP 08/04 2141 81 94 08/04 2132 CPAP 6.0L 08/04 2007 99.2 99 28 151/85 99 Non 100% ReBreather 08/04 1823 95 Non 100% ReBreather 08/04 1822 77 22 153/74 95 Non 100% ReBreather 08/04 1640 99.1 72 28 140/86 96 Non 100% ReBreather Intake & Output 08/05 1600 08/05 0800 08/05 0000 Intake Total 480 120 120 Output Total 300 300 200 Balance 180 -180 -80 Intake, Oral 480 120 120 Number 1 Bowel Movements Output, Urine 300 300 200 Patient 99.79 kg Weight Physical Exam General Appearance: Alert, Oriented X3, Cooperative, No Acute Distress, nasal cannula 6 L Skin: bilateral lower extermities erythema, no wounds Trace edema bilateral, tender on palpation HEENT: Atraumatic, PERRLA, EOMI, Mucous Membr. moist/pink Neck: Supple Cardiovascular: irrigular irrigular 2/6 systolic murmur Lungs: dicrease air entery bilateral Abdomen: Normal Bowel Sounds, Soft, detended diffuse mild tenderness on deep palpation Neurological: Normal Speech, Strength at 5/5 X4 Ext, Normal Tone, Sensation Intact, Cranial Nerves 3-12 NL, Reflexes 2+ Extremities: No Clubbing, No Cyanosis, trace bilateral pedal edema Vascular: Normal Pulses Assessment/Plan Assessment: Mrs. [place] is a 85-year-old female with past medical history significant for hypertension, Afib on coumadin, aortic valve(bioprosthetic), obstructive sleep apnea on CPAP, chronic LE edema on lasix, pulmonary HTN, recent history of fall and fracture of left hip and multiple ribs, BIBA from assisted living facility ( [facility]) with CC of SOB and weaknes. CTA 1. Markedly limited evaluation, as detailed above. No central pulmonary embolus identified. 2. Patchy bilateral lung consolidations combined with interstitial prominence and small bilateral pleural effusions in the setting of cardiomegaly. The constellation of these findings is most consistent with congestive heart failure exacerbation, although a superimposed infectious process is not excluded. 3. Reflux of contrast into the hepatic veins is most suggestive of right heart dysfunction. 4. Mediastinal lymphadenopathy, increased since the prior study. 5. Other nonacute findings, as above. Chest x-ray IMPRESSION: There is cardiomegaly and increased interstitial markings with prominent central pulmonary vasculature, consistent with congestive heart failure. Underlying consolidation at the left base cannot be excluded. Problem list #Hypercapnia due to sleep obstructive apnea/acute exacerbation congestive heart failure/possible pneumonia -Patient's symptoms improved with diuresis which support the theory of symptoms attributed by acute exacerbation congestive heart failure instead of pneumonia -Continue hold off antibiotics -Keep oxygen saturation above 92% -TRC -Pulmonary consultation was placed, thank you for recommendation -Keep the potassium more than 4 and magnesium more than 2 -Increase potassium supplementation to 40 MG twice a day -Continue CPAP at bedtime and when necessary -Keep bed head elevated, aspiration precaution #Acute exacerbation congestive heart failure -Cardiology consultation for acute CHF exacerbation -Lasix 40 mg twice a day -Strict in and out -480 -Hold Coumadin for supratherapeutic INR -INR increased from 4.032 6.25, patient met the criteria for vitamin K supplementation given the INR value and history of bleeding (recent history of hip fracture and rib fracture), will give 1 dose of vitamin K today -Trend troponin continued to be flat 0.06 and EKG -Continue home medication #Abnormal liver function test -Elevated total bilirubin 1.8<2.4 improving -Direct bilirubin 0.6 -INR continue to prolong despite holding warfarin today is 6.25 and was 4.032 yesterday -AST and ALT within normal -Alkaline phosphatase within normal -Hemoglobin dropped from 11.2 to 10.1 -Add LDH to morning labs looking for any signs of hemolysis -Guaiac stool -Aggressive bowel regimen -Patient has distended, generalized mildly tenderness on deep palpation abdomen -CTA yesterday UPPER ABDOMEN: Reflux of contrast into the hepatic veins. Vascular calcifications. Gaseous distention of the partially visualized bowel, better appreciated on the scanogram. -We'll continue to monitor Code DNR/DNI patient has dementia, I contact power of ip technology transactions attorney (her ) and reported that based on patient's wishes she want to be DNR/DNI 08/05/16 Of note patient was full code at [facility] DVT prophylaxis warfarin on hold for supratherapeutic INR Diet heart healthy diet Consultation cardiology and pulmonology Problem List: 1. CHF (congestive heart failure) 2. Multiple rib fractures 3. Fall 4. Supratherapeutic INR 5. Atrial fibrillation Pain Ratin Pain Location: N/A Pain Goal: Pain 4 or less Pain Plan: Mild pain pathway Tomorrow's Labs & Rationales: CBC, CMP
--- NOTE | 2016-08-05 15:52 | Cons- Cardiology ---
General Information and HPI Consulting Request Date of Consult: 08/05/16 Requested By: CAMRYN GROVER MD Reason for Consult: Chronic atrial fibrillation, aortic stenosis, congestive heart failure Source of Information: patient, old records Exam Limitations: no limitations History of Present Illness: The patient is an 85-year-old female with chronic atrial fibrillation, bioprosthetic aortic valve with aortic stenosis, severe pulmonary hypertension and central sleep apnea. She was brought in for shortness of breath and was found to be in congestive heart failure. She has been started on IV Lasix. She is followed in [place] and also at [place]. She has had no chest pain. She's had 2 sets of negative enzymes. Her INR is supratherapeutic. Her BNP was elevated at 5580. Allergies/Medications Allergies: Coded Allergies: Penicillins (RASH 04/12/16) adhesive tape (RASH/ITCHING 04/12/16) cephalexin (HIVES 04/12/16) Home Med List: Albuterol Sulfate 0.63 MG/3 ML VIAL.NEB 1 Vial NEB Q2 HRS NEEDED PRN SHORTNESS OF BREATH (Reported) Amlodipine Besylate 5 MG TABLET 1 TAB PO DAILY HIGH BLOOD PRESSURE (Reported) Atorvastatin Calcium 20 MG TABLET 1 TAB PO DAILY CHOLESTEROL (Reported) Calcium Carbonate (TUMS) 200 MG CALCIUM (500 MG) TAB.CHEW 3 TAB PO BID SUPPLEMENT (Reported) Calcium Carbonate (Calcium) 600 MG TABLET 1 TAB PO DAILY SUPPLEMENT (Reported ) Escitalopram Oxalate 20 MG TABLET 0.5 TAB PO DAILY MENTAL HEALTH (Reported) Furosemide 40 MG TABLET 2 TAB PO QAM DIURETIC (Reported) Furosemide (Lasix) 40 MG TABLET 1 TAB PO 1700 DIURETIC (Reported) Metoprolol Succinate 50 MG TAB.ER.24H 1 TAB PO DAILY HEART/BP (Reported) Multivitamin (Multi-Day Vitamins) 1 EACH TABLET 1 TAB PO DAILY SUPPLEMENT ( Reported) Pantoprazole Sodium (Protonix) 40 MG TABLET.DR 1 TAB PO DAILY ACID REFLUX ( Reported) Polyethylene Glycol 3350 (Miralax) 17 GRAM POWD.PACK 1 PAC PO DAILY PRN CONSTIPATION (Reported) Polyethylene Glycol 3350 (Miralax) 17 GM POWD.PACK 0.5 PAC PO DAILY GI ( Reported) dissolve in water Potassium Chloride (K-Tab ER) 20 MEQ TABLET.ER 1 TAB PO DAILY SUPPLEMENT ( Reported) Sennosides (Senna) 8.6 MG TABLET 2 TAB PO BED TIME PRN CONSTIPATION (Reported ) Solifenacin Succinate (Vesicare) 10 MG TABLET 1 TAB PO Q48 BLADDER (Reported) Warfarin Sodium 2 MG TABLET 1 TAB PO AD BLOOD THINNER (Reported) Warfarin Sodium (Coumadin) 3 MG TABLET 1 TAB PO AD BLOOD THINNER (Reported) Current Medications: Current Medications Sig/Saulo Start time Last Medication Dose Route Stop Time Status Admin Amlodipine Besylate 5 MG DAILY 08/05 1000 AC 08/05 PO 1220 Atorvastatin Calcium 20 MG DAILY@1700 08/05 1700 AC PO Docusate Sodium 100 MG DAILY NEEDED PRN 08/05 1530 AC PO Escitalopram Oxalate 10 MG DAILY 08/05 1000 AC 08/05 PO 1218 Furosemide 40 MG BID 08/05 1000 AC 08/05 IV 1218 Furosemide 0 .STK-MED ONE 08/04 194 DC IV Furosemide 20 MG ONCE ONE 08/04 194 DC 08/04 IV 08/04 1942000 Magnesium Oxide 400 MG ONE ONE 08/05 1415 DC 08/05 PO 08/05 1416 1427 Magnesium Oxide 400 MG .STK-MED ONE 08/05 0004 DC PO 08/05 0005 Magnesium Oxide 400 MG ONE ONE 08/04 2014 DC 08/05 PO 08/04 2016 0009 Metoprolol Succinate 50 MG DAILY 08/05 1000 AC 08/05 PO 1221 Moxifloxacin HCl 400 MG ONCE ONE 08/04 1630 DC 08/04 IV 08/04 1631 1818 Non-Formulary 0 SEE ADMIN CRITERIA 08/04 1330 CAN Medication ANY Oxybutynin Chloride 10 MG Q48 08/06 1000 AC PO Phytonadione 2.5 MG ONCE ONE 08/05 1345 DC 08/05 PO 08/05 1346 1427 Polyethylene Glycol 17 GM DAILY PRN 08/04 1930 AC PO Potassium Chloride 40 MEQ BID 08/05 2200 AC PO Potassium Chloride 20 MEQ DAILY 08/05 1000 DC PO Potassium Chloride 0 .STK-MED ONE 08/04 1949 DC PO Potassium Chloride 60 MEQ ONCE ONE 08/04 1930 DC 08/04 PO 08/04 1932000 Senna 187 MG AT BEDTIME PRN 08/05 1530 AC PO Vancomycin HCl 0 .STK-MED ONE 08/04 1641 DC .ROUTE Review of Systems Review of Systems: She has no complaints in the review of systems at this time Past History Travel History Traveled to [place] past 21 day No Medical History Neurological: NONE EENT: NONE Cardiovascular: AFIB, aortic stenosis, hyperlipidemia, HYPERTENSION Respiratory: 2-3L NC DEPENDENT Gastrointestinal: constipation Hepatic: NONE Renal: NONE Musculoskeletal: osteoarthritis, osteoporosis, CELLULITIS CONTACT DERMATITIS Psychiatric: NONE Endocrine: NONE Blood Disorders: NONE Cancer(s): NONE CHILD SPECIALIST/Reproductive: NONE Surgical History Surgical History: AORITC VALVE REPLACEMENT right shoulder replacement left hip replacement Psychosocial History Services at Home: None Smoking Status: Never Smoked ETOH Use: denies use Illicit Drug Use: denies illicit drug use Exam & Diagnostic Data Vital Signs and I&O Vital Signs Date Time Temp Pulse Resp B/P Pulse O2 O2 Flow FiO2 Ox Delivery Rate 08/05 1221 152/88 08/05 1220 152/88 08/05 0900 73 93 08/05 08 Nasal 6.0L Cannula 08/05 08 97.7 70 20 110/70 93 Nasal 6.0L Cannula 08/05 0046 87 90 08/05 0000 Nasal 6.0L Cannula 08/04 2142 98.2 84 24 124/76 97 CPAP 08/04 2141 81 94 08/04 2132 CPAP 6.0L 08/04 2007 99.2 99 28 151/85 99 Non 100% ReBreather 08/04 1823 95 Non 100% ReBreather 08/04 1822 77 22 153/74 95 Non 100% ReBreather 08/04 1640 99.1 72 28 140/86 96 Non 100% ReBreather Intake & Output 08/05 1600 08/05 0800 08/05 0000 08/04 1600 08/04 0800 08/04 0000 Intake Total 480 120 120 500 Output Total 300 300 200 900 Balance 180 -180 -80 -400 Intake, IV 500 Intake, Oral 480 120 120 Number 1 Bowel Movements Output, Urine 300 300 200 900 Patient 220 lb 202 lb Weight Physical Exam: She is an obese elderly female in no acute distress HEENT exam is normal Neck veins not distended Chest reveals scattered rales in the bases Heart reveals irregular rhythm with grade 3/6 systolic ejection murmur at the base Extremities reveal 1+ edema Labs/Noel Results: Laboratory Tests 08/05 08/05 08/04 08/04 0655 0225 2035 1555 Chemistry Sodium (137 - 145 mmol/L) 143 Potassium (3.5 - 5.1 mmol/L) 3.7 Chloride (98 - 107 mmol/L) 102 Carbon Dioxide (22 - 30 mmol/L) 30 Anion Gap (5 - 16) 11 BUN (7 - 17 mg/dL) 11 Creatinine (0.5 - 1.0 mg/dL) 0.6 Estimated GFR (>60 ml/min) > 60 BUN/Creatinine Ratio (7 - 25 %) 18.3 Lactic Acid (0.7 - 2.1 mmol/L) 1.0 Magnesium (1.6 - 2.3 mg/dL) 1.7 Total Bilirubin (0.2 - 1.3 mg/dL) 1.8 H Direct Bilirubin (< 0.4 mg/dL) 0.6 H AST (14 - 36 U/L) 20 ALT (9 - 52 U/L) 31 Alkaline Phosphatase (<127 U/L) 120 Lactate Dehydrogenase (313 - 618 U/L) 857 H Troponin I (< 0.11 ng/ml) 0.06 0.06 Total Protein (6.3 - 8.2 g/dL) 6.4 Albumin (3.5 - 5.0 g/dL) 3.5 Coagulation PT (9.4 - 12.5 SEC) 64.4 *H INR (0.90 - 1.19) 6.25 *H Hematology CBC w Diff NO MAN DIFF REQ WBC (4.8 - 10.8 /CUMM) 10.5 RBC (4.20 - 5.40 /CUMM) 3.54 L Hgb (12.0 - 16.0 G/DL) 10.1 L Hct (37 - 47 %) 31.0 L MCV (81.0 - 99.0 FL) 87.6 MCH (27.0 - 31.0 PG) 28.5 RDW (11.5 - 14.5 %) 19.6 H Plt Count (130 - 400 /CUMM) 349 MPV (7.4 - 10.4 FL) 9.6 Gran % (42.2 - 75.2 %) 85.5 H Lymphocytes % (20.5 - 51.1 %) 4.6 L Monocytes % (1.7 - 9.3 %) 7.1 Eosinophils % (0 - 5 %) 2.7 Basophils % (0.0 - 2.0 %) 0.1 Absolute Granulocytes (1.4 - 6.5 /CUMM) 9.0 H Absolute Lymphocytes (1.2 - 3.4 /CUMM) 0.5 L Absolute Monocytes (0.10 - 0.60 /CUMM) 0.7 H Absolute Eosinophils (0.0 - 0.7 /CUMM) 0.3 Absolute Basophils (0.0 - 0.2 /CUMM) 0 PUBS MCHC (33.0 - 37.0 G/DL) 32.5 L 08/04 08/04 1420 1256 Blood Gas pH (7.35 - 7.45 PH) 7.42 pCO2 (35 - 45 TORR) 46 H pO2 (80 - 100 TORR) 92 HCO3 (21 - 28 MEQ/L) 30 H ABG O2 Sat (Measured) (>96.0 %) 96.0 Carboxyhemoglobin (1.5 - 5.0 %) 1.0 L O2 Concentration % 100% O2 Delivery Method NRB Miscellaneous Phlebotomy Draw Site RIGHT RADIAL Urines Urinalysis LIGHT H Urine Color (YEL,AMB,STR) YEL Urine Clarity (CLEAR) CLEAR Urine pH (5.0 - 8.0) 6.5 Ur Specific Park (1.001 - 1.035) 1.015 Urine Protein (NEG,<30 MG/DL) TRACE H Urine Ketones (NEG) NEG Urine Nitrite (NEG) NEG Urine Bilirubin (NEG) NEG Urine Urobilinogen (0.1 - 1.0 EU/dl) 0.2 Ur Leukocyte Esterase (NEG) NEG Ur Microscopic SEDIMENT EXAMINED Urine RBC (0 - 5 /HPF) RARE Urine Hemoglobin (NEG) NEG Urine Glucose (N MG/DL) NEG 08/04 1230 Chemistry Sodium (137 - 145 mmol/L) 143 Potassium (3.5 - 5.1 mmol/L) 3.3 L Chloride (98 - 107 mmol/L) 97 L Carbon Dioxide (22 - 30 mmol/L) 33 H Anion Gap (5 - 16) 14 BUN (7 - 17 mg/dL) 11 Creatinine (0.5 - 1.0 mg/dL) 0.5 Estimated GFR (>60 ml/min) > 60 BUN/Creatinine Ratio (7 - 25 %) 22.0 Glucose (65 - 99 mg/dL) 140 H Lactic Acid (0.7 - 2.1 mmol/L) 1.2 Calcium (8.4 - 10.2 mg/dL) 10.0 Magnesium (1.6 - 2.3 mg/dL) 1.8 Total Bilirubin (0.2 - 1.3 mg/dL) 2.4 H AST (14 - 36 U/L) 25 ALT (9 - 52 U/L) 32 Alkaline Phosphatase (<127 U/L) 140 H Troponin I (< 0.11 ng/ml) 0.04 Anh-X-Bxgmmgfkzku Pept (<125 pg/mL) 5850 H Total Protein (6.3 - 8.2 g/dL) 7.4 Albumin (3.5 - 5.0 g/dL) 4.0 Globulin (1.9 - 4.2 gm/dL) 3.4 Albumin/Globulin Ratio (1.1 - 2.2 %) 1.2 Coagulation PT (9.4 - 12.5 SEC) 41.7 H INR (0.90 - 1.19) 4.03 *H APTT (25 - 37 SEC) 35 D-Dimer (70 - 232 ng/ml) 574 H Hematology CBC w Diff MAN DIFF ORDERED WBC (4.8 - 10.8 /CUMM) 16.0 H RBC (4.20 - 5.40 /CUMM) 4.01 L Hgb (12.0 - 16.0 G/DL) 11.2 L Hct (37 - 47 %) 35.0 L MCV (81.0 - 99.0 FL) 87.3 MCH (27.0 - 31.0 PG) 27.9 RDW (11.5 - 14.5 %) 19.3 H Plt Count (130 - 400 /CUMM) 456 H MPV (7.4 - 10.4 FL) 9.6 Gran % (42.2 - 75.2 %) 92.3 H Lymphocytes % (20.5 - 51.1 %) 1.8 L Monocytes % (1.7 - 9.3 %) 5.3 Eosinophils % (0 - 5 %) 0.5 Basophils % (0.0 - 2.0 %) 0.1 Absolute Granulocytes (1.4 - 6.5 /CUMM) 14.8 H Absolute Lymphocytes (1.2 - 3.4 /CUMM) 0.3 L Absolute Monocytes (0.10 - 0.60 /CUMM) 0.8 H Absolute Eosinophils (0.0 - 0.7 /CUMM) 0.1 Absolute Basophils (0.0 - 0.2 /CUMM) 0 Platelet Estimate (ADEQUATE) VERIFIED BY SMEAR Polychromasia 1+ Poikilocytosis 1+ Anisocytosis 1+ Ovalocytes 1+ PUBS MCHC (33.0 - 37.0 G/DL) 32.0 L Diagnostic Data EKG Results Atrial fibrillation with normal rate, right axis deviation, LVH, nonspecific ST- T wave abnormalities CXR Results PATIENT: DANYELL PETER PRESENT AGE: 85 PATIENT ACCOUNT NO: [id number] : [birth year] LOCATION: [facility] ORDERING PHYSICIAN: KELTON ANTONIO SERVICE DATE: 08/04/16-1201 EXAM TYPE: RAD - XRY-PORTABLE CHEST XRAY EXAMINATION: XR PORTABLE CHEST CLINICAL INFORMATION: Shortness of breath and congestive heart failure. COMPARISON: Chest x-ray 01/02/[address] scan of the chest 04/12/2016. TECHNIQUE: Portable AP view of the chest was obtained. FINDINGS: The lung cerrato are poorly expanded. The cardiac silhouette is prominent and there are increased interstitial markings in the left mid and lower zones and the right midzone. Consolidation at the left base cannot be excluded. There is prominence of the central pulmonary vasculature. There are no definite pleural effusions. There are sequelae of median sternotomy and bilateral shoulder arthroplasties. IMPRESSION: 1. There is cardiomegaly and increased interstitial markings with prominent central pulmonary vasculature, consistent with congestive heart failure. Underlying consolidation at the left base cannot be excluded. DICTATED BY: STACY THOMAS MD DATE/TIME DICTATED:08/04/161249 ASSISTANT DRAFTER:CJ DATE/TIME TRANSCRIBED:08/04/161249 CONFIDENTIAL, DO NOT COPY WITHOUT APPROPRIATE AUTHORIZATION. <Electronically signed in Other Vendor System> SIGNED BY: STACY THOMAS MD 08/04/16 1257 Other Results IMPRESSION: 1. Markedly limited evaluation, as detailed above. No central pulmonary embolus identified. 2. Patchy bilateral lung consolidations combined with interstitial prominence and small bilateral pleural effusions in the setting of cardiomegaly. The constellation of these findings is most consistent with congestive heart failure exacerbation, although a superimposed infectious process is not excluded. 3. Reflux of contrast into the hepatic veins is most suggestive of right heart dysfunction. 4. Mediastinal lymphadenopathy, increased since the prior study. 5. Other nonacute findings, as above. Assessment/Plan Assessment/Plan This patient presents with fluid overload and left and right congestive heart failure. She has underlying severe aortic stenosis and severe pulmonary hypertension by history. She has been started on IV Lasix, which I think is appropriate. An echocardiogram has been ordered and I will review it when it is done. Her Coumadin will be on hold until it is back in the therapeutic range. Because of her age and comorbidities she is not a good candidate for aggressive cardiac intervention at this time. I will continue to follow her and will have further recommendations after her echocardiogram is reviewed. [facility] Consult Acknowledgment - Thank you for your consult request.
[2016-08-05 16:00] VITALS: BP 176/100
--- NOTE | 2016-08-05 16:05 | Event Note ---
Event Note Event Note: At 3 PM, I contacted patient's who has power of disability attorney regarding her CODE STATUS Mr. Keith Hooker. On admission the patient was confused disoriented 3, the daughter who was at bedside on admission wasn't sure what the CODE STATUS should be as she doesn't have the power of disability attorney. Initially patient was full code, based on her wishes that was expressed through her power of disability attorney (the ) she wants to be DNR/DNI and for that the CODE STATUS was changed. The resident Noe Alicia and the lining caser Elias made aware
[2016-08-06 00:36] VITALS: BP 118/68
[2016-08-06 08:11] LABS: ABSOLUTE BASOPHIL COUNT 0.1 /CUMM (0.0-0.2); ABSOLUTE EOSINOPHIL COUNT 0.5 /CUMM (0.0-0.7); ABSOLUTE GRANULOCYTE CT 10.2 /CUMM (1.4-6.5); ABSOLUTE LYMPH COUNT 0.4 /CUMM (1.2-3.4); ABSOLUTE MONOCYTE COUNT 0.9 /CUMM (0.10-0.60); BASOPHIL % 0.6 % (0.0-2.0); EOSINOPHIL % 4.3 % (0-5); HEMATOCRIT 32.5 % (37-47); MEAN CORPUSCULAR HGB 28.1 PG (27.0-31.0); MEAN CORPUSCULAR HGB CONC 31.9 G/DL (33.0-37.0); MEAN CORPUSCULAR VOLUME 88.3 FL (81.0-99.0); MEAN PLATELET VOLUME 9.5 FL (7.4-10.4); RBC DISTRIBUTION WIDTH 19.2 % (11.5-14.5); RED BLOOD CELL CT 3.68 /CUMM (4.20-5.40); WHITE BLOOD CELL COUNT 12.1 /CUMM (4.8-10.8)
[2016-08-06 08:19] LABS: PT 27.2 SEC (9.4-12.5)
[2016-08-06 08:22] VITALS: BP 136/70
[2016-08-06 09:08] LABS: GRANULOCYTE % 84.3 % (42.2-75.2); PLATELET COUNT 384 /CUMM (130-400)
--- NOTE | 2016-08-06 09:21 | PN- Att Addend ---
Attending Addendum Attending Brief Note Patient reports some respiratory distress this morning General Appearance: Alert, No Acute Distress Skin: Grossly normal HEENT: PEERLA Neck: Supple, No JVD Cardiovascular: Regular Rate, Normal S1, Normal S2, No Murmurs Lungs: Decreased air entry all lung cerrato, right basilar crackles Abdomen: Normal Bowel Sounds, Soft, No Tenderness Neurological: Normal Speech, Strength at 5/5 X4 Ext, Cranial Nerves 3-12 NL, Reflexes 2+ Extremities: 1+ pedal edema Vascular: Normal Pulses Assessment 85-year-old female with history of hypertension, atrial fibrillation on Coumadin , aortic valve replacement, central apnea on CPAP, chronic lower extremity edema presenting with acute respiratory distress. CTA negative for VTE however there is suggestion of bilateral opacifications with interstitial edema. I suspect her respiratory symptoms are secondary to fluid overload rather than infection. At this time echo is pending. Plan Repeat chest x-ray Continue IV Lasix 40 mg twice a day Follow echocardiogram Check I's and O's and daily weights Resume Coumadin Continue CPAP at bedtime DNI/DNR Current Medications Sig/Saulo Start time Last Medication Dose Route Stop Time Status Admin Amlodipine Besylate 5 MG DAILY 08/05 1000 AC 08/05 PO 1220 Atorvastatin Calcium 20 MG DAILY@1700 08/05 1700 AC 08/05 PO 1647 Docusate Sodium 100 MG DAILY NEEDED PRN 08/05 1530 AC PO Escitalopram Oxalate 10 MG DAILY 08/05 1000 AC 08/05 PO 1218 Furosemide 40 MG BID 08/05 1000 AC 08/05 IV 2158 Magnesium Oxide 400 MG ONE ONE 08/05 1415 DC 08/05 PO 08/05 1416 1427 Metoprolol Succinate 50 MG DAILY 08/05 1000 AC 08/05 PO 1221 Oxybutynin Chloride 10 MG Q48 08/06 1000 AC PO Phytonadione 2.5 MG ONCE ONE 08/05 1345 DC 08/05 PO 08/05 1346 1427 Polyethylene Glycol 17 GM DAILY PRN 08/04 1930 AC PO Potassium Chloride 40 MEQ BID 08/05 2200 AC 08/05 PO 2158 Potassium Chloride 20 MEQ DAILY 08/05 1000 DC PO Senna 187 MG AT BEDTIME PRN 08/05 1530 AC PO Laboratory Tests 08/06 0642 Chemistry Sodium (137 - 145 mmol/L) 144 Potassium (3.5 - 5.1 mmol/L) 4.1 Chloride (98 - 107 mmol/L) 100 Carbon Dioxide (22 - 30 mmol/L) 36 H Anion Gap (5 - 16) 7 BUN (7 - 17 mg/dL) 12 Creatinine (0.5 - 1.0 mg/dL) 0.7 Estimated GFR (>60 ml/min) > 60 BUN/Creatinine Ratio (7 - 25 %) 17.1 Magnesium (1.6 - 2.3 mg/dL) 2.0 Total Bilirubin (0.2 - 1.3 mg/dL) Pending Direct Bilirubin (< 0.4 mg/dL) Pending AST (14 - 36 U/L) Pending ALT (9 - 52 U/L) Pending Alkaline Phosphatase (<127 U/L) Pending Total Protein (6.3 - 8.2 g/dL) Pending Albumin (3.5 - 5.0 g/dL) Pending Coagulation PT (9.4 - 12.5 SEC) 27.2 H INR (0.90 - 1.19) 2.62 H Hematology CBC w Diff NO MAN DIFF REQ WBC (4.8 - 10.8 /CUMM) 12.1 H RBC (4.20 - 5.40 /CUMM) 3.68 L Hgb (12.0 - 16.0 G/DL) 10.4 L Hct (37 - 47 %) 32.5 L MCV (81.0 - 99.0 FL) 88.3 MCH (27.0 - 31.0 PG) 28.1 RDW (11.5 - 14.5 %) 19.2 H Plt Count (130 - 400 /CUMM) 384 MPV (7.4 - 10.4 FL) 9.5 Gran % (42.2 - 75.2 %) 84.3 H Lymphocytes % (20.5 - 51.1 %) 3.5 L Monocytes % (1.7 - 9.3 %) 7.3 Eosinophils % (0 - 5 %) 4.3 Basophils % (0.0 - 2.0 %) 0.6 Absolute Granulocytes (1.4 - 6.5 /CUMM) 10.2 H Absolute Lymphocytes (1.2 - 3.4 /CUMM) 0.4 L Absolute Monocytes (0.10 - 0.60 /CUMM) 0.9 H Absolute Eosinophils (0.0 - 0.7 /CUMM) 0.5 Absolute Basophils (0.0 - 0.2 /CUMM) 0.1 PUBS MCHC (33.0 - 37.0 G/DL) 31.9 L Vital Signs Date Time Temp Pulse Resp B/P Pulse O2 O2 Flow FiO2 Ox Delivery Rate 08/06 0822 98.1 75 20 136/70 96 Nasal 6.0L Cannula 08/06 0122 72 96 08/06 0036 98.2 73 20 118/68 96 BIPAP 08/06 0000 CPAP 6.0L 08/05 2239 68 94 08/05 1600 96 Nasal 6.0L Cannula 08/05 1600 99.3 74 20 176/100 92 Nasal 6.0L Cannula 08/05 1221 152/88 08/05 1220 152/88
--- NOTE | 2016-08-06 10:35 | PN- Pulmonary ---
Subjective HPI/Critical Care Issues: Sleeping More abd discomfort today Objective Current Medications: Current Medications Sig/Saulo Start time Last Medication Dose Route Stop Time Status Admin Amlodipine Besylate 5 MG DAILY 08/05 1000 AC 08/06 PO 1028 Atorvastatin Calcium 20 MG DAILY@1700 08/05 1700 AC 08/05 PO 1647 Docusate Sodium 100 MG DAILY NEEDED PRN 08/05 1530 AC PO Escitalopram Oxalate 10 MG DAILY 08/05 1000 AC 08/06 PO 1028 Furosemide 40 MG BID 08/05 1000 AC 08/06 IV 1029 Magnesium Oxide 400 MG ONE ONE 08/05 1415 DC 08/05 PO 08/05 1416 1427 Metoprolol Succinate 50 MG DAILY 08/05 1000 AC 08/06 PO 1029 Oxybutynin Chloride 10 MG Q48 08/06 1000 AC 08/06 PO 1028 Phytonadione 2.5 MG ONCE ONE 08/05 1345 DC 08/05 PO 08/05 1346 1427 Polyethylene Glycol 17 GM DAILY PRN 08/04 1930 AC PO Potassium Chloride 40 MEQ BID 08/05 2200 AC 08/06 PO 1028 Potassium Chloride 20 MEQ DAILY 08/05 1000 DC PO Senna 187 MG AT BEDTIME PRN 08/05 1530 AC PO Vital Signs & I&O Last 24 Hrs of Vitals and I&O: Laboratory Tests 08/06 02 0642 0655 Chemistry Sodium (137 - 145 mmol/L) 144 143 Potassium (3.5 - 5.1 mmol/L) 4.1 3.7 Chloride (98 - 107 mmol/L) 100 102 Carbon Dioxide (22 - 30 mmol/L) 36 H 30 Anion Gap (5 - 16) 7 11 BUN (7 - 17 mg/dL) 12 11 Creatinine (0.5 - 1.0 mg/dL) 0.7 0.6 Estimated GFR (>60 ml/min) > 60 > 60 BUN/Creatinine Ratio (7 - 25 %) 17.1 18.3 Magnesium (1.6 - 2.3 mg/dL) 2.0 Total Bilirubin (0.2 - 1.3 mg/dL) 1.6 H Direct Bilirubin (< 0.4 mg/dL) 0.5 H AST (14 - 36 U/L) 22 ALT (9 - 52 U/L) 33 Alkaline Phosphatase (<127 U/L) 114 Lactate Dehydrogenase (313 - 618 U/L) 857 H Total Protein (6.3 - 8.2 g/dL) 6.6 Albumin (3.5 - 5.0 g/dL) 3.6 Coagulation PT (9.4 - 12.5 SEC) 27.2 H 64.4 *H INR (0.90 - 1.19) 2.62 H 6.25 *H Hematology CBC w Diff NO MAN DIFF REQ NO MAN DIFF REQ WBC (4.8 - 10.8 /CUMM) 12.1 H 10.5 RBC (4.20 - 5.40 /CUMM) 3.68 L 3.54 L Hgb (12.0 - 16.0 G/DL) 10.4 L 10.1 L Hct (37 - 47 %) 32.5 L 31.0 L MCV (81.0 - 99.0 FL) 88.3 87.6 MCH (27.0 - 31.0 PG) 28.1 28.5 RDW (11.5 - 14.5 %) 19.2 H 19.6 H Plt Count (130 - 400 /CUMM) 384 349 MPV (7.4 - 10.4 FL) 9.5 9.6 Gran % (42.2 - 75.2 %) 84.3 H 85.5 H Lymphocytes % (20.5 - 51.1 %) 3.5 L 4.6 L Monocytes % (1.7 - 9.3 %) 7.3 7.1 Eosinophils % (0 - 5 %) 4.3 2.7 Basophils % (0.0 - 2.0 %) 0.6 0.1 Absolute Granulocytes (1.4 - 6.5 /CUMM) 10.2 H 9.0 H Absolute Lymphocytes (1.2 - 3.4 /CUMM) 0.4 L 0.5 L Absolute Monocytes (0.10 - 0.60 /CUMM) 0.9 H 0.7 H Absolute Eosinophils (0.0 - 0.7 /CUMM) 0.5 0.3 Absolute Basophils (0.0 - 0.2 /CUMM) 0.1 0 PUBS MCHC (33.0 - 37.0 G/DL) 31.9 L 32.5 L 08/05 08/04 08/04 08/04 0225 2035 1555 1420 Chemistry Lactic Acid (0.7 - 2.1 mmol/L) 1.0 Magnesium (1.6 - 2.3 mg/dL) 1.7 Total Bilirubin (0.2 - 1.3 mg/dL) 1.8 H Direct Bilirubin (< 0.4 mg/dL) 0.6 H AST (14 - 36 U/L) 20 ALT (9 - 52 U/L) 31 Alkaline Phosphatase (<127 U/L) 120 Troponin I (< 0.11 ng/ml) 0.06 0.06 Total Protein (6.3 - 8.2 g/dL) 6.4 Albumin (3.5 - 5.0 g/dL) 3.5 Urines Urinalysis LIGHT H Urine Color (YEL,AMB,STR) YEL Urine Clarity (CLEAR) CLEAR Urine pH (5.0 - 8.0) 6.5 Ur Specific [place] (1.001 - 1.035) 1.015 Urine Protein (NEG,<30 MG/DL) TRACE H Urine Ketones (NEG) NEG Urine Nitrite (NEG) NEG Urine Bilirubin (NEG) NEG Urine Urobilinogen (0.1 - 1.0 EU/dl) 0.2 Ur Leukocyte Esterase (NEG) NEG Ur Microscopic SEDIMENT EXAMINED Urine RBC (0 - 5 /HPF) RARE Urine Hemoglobin (NEG) NEG Urine Glucose (N MG/DL) NEG 08/04 08/04 1256 1230 Blood Gas pH (7.35 - 7.45 PH) 7.42 pCO2 (35 - 45 TORR) 46 H pO2 (80 - 100 TORR) 92 HCO3 (21 - 28 MEQ/L) 30 H ABG O2 Sat (Measured) (>96.0 %) 96.0 Carboxyhemoglobin (1.5 - 5.0 %) 1.0 L O2 Concentration % 100% O2 Delivery Method NRB Chemistry Sodium (137 - 145 mmol/L) 143 Potassium (3.5 - 5.1 mmol/L) 3.3 L Chloride (98 - 107 mmol/L) 97 L Carbon Dioxide (22 - 30 mmol/L) 33 H Anion Gap (5 - 16) 14 BUN (7 - 17 mg/dL) 11 Creatinine (0.5 - 1.0 mg/dL) 0.5 Estimated GFR (>60 ml/min) > 60 BUN/Creatinine Ratio (7 - 25 %) 22.0 Glucose (65 - 99 mg/dL) 140 H Lactic Acid (0.7 - 2.1 mmol/L) 1.2 Calcium (8.4 - 10.2 mg/dL) 10.0 Magnesium (1.6 - 2.3 mg/dL) 1.8 Total Bilirubin (0.2 - 1.3 mg/dL) 2.4 H AST (14 - 36 U/L) 25 ALT (9 - 52 U/L) 32 Alkaline Phosphatase (<127 U/L) 140 H Troponin I (< 0.11 ng/ml) 0.04 Smn-O-Nwvguqhixun Pept (<125 pg/mL) 5850 H Total Protein (6.3 - 8.2 g/dL) 7.4 Albumin (3.5 - 5.0 g/dL) 4.0 Globulin (1.9 - 4.2 gm/dL) 3.4 Albumin/Globulin Ratio (1.1 - 2.2 %) 1.2 Coagulation PT (9.4 - 12.5 SEC) 41.7 H INR (0.90 - 1.19) 4.03 *H APTT (25 - 37 SEC) 35 D-Dimer (70 - 232 ng/ml) 574 H Hematology CBC w Diff MAN DIFF ORDERED WBC (4.8 - 10.8 /CUMM) 16.0 H RBC (4.20 - 5.40 /CUMM) 4.01 L Hgb (12.0 - 16.0 G/DL) 11.2 L Hct (37 - 47 %) 35.0 L MCV (81.0 - 99.0 FL) 87.3 MCH (27.0 - 31.0 PG) 27.9 RDW (11.5 - 14.5 %) 19.3 H Plt Count (130 - 400 /CUMM) 456 H MPV (7.4 - 10.4 FL) 9.6 Gran % (42.2 - 75.2 %) 92.3 H Lymphocytes % (20.5 - 51.1 %) 1.8 L Monocytes % (1.7 - 9.3 %) 5.3 Eosinophils % (0 - 5 %) 0.5 Basophils % (0.0 - 2.0 %) 0.1 Absolute Granulocytes (1.4 - 6.5 /CUMM) 14.8 H Absolute Lymphocytes (1.2 - 3.4 /CUMM) 0.3 L Absolute Monocytes (0.10 - 0.60 /CUMM) 0.8 H Absolute Eosinophils (0.0 - 0.7 /CUMM) 0.1 Absolute Basophils (0.0 - 0.2 /CUMM) 0 Platelet Estimate (ADEQUATE) VERIFIED BY SMEAR Polychromasia 1+ Poikilocytosis 1+ Anisocytosis 1+ Ovalocytes 1+ PUBS MCHC (33.0 - 37.0 G/DL) 32.0 L Miscellaneous Phlebotomy Draw Site RIGHT RADIAL Microbiology Date/Time Procedure - Status Source Growth 08/06 09 Clostridium difficile Toxin A & B - ORD STOOL 08/04 2015 Respiratory Culture - CAN LOWER RESP Cancelled: SPECIMEN NOT RECEIVED IN LABORATORY 08/04 2015 Gram Stain - CAN LOWER RESP Cancelled: SPECIMEN NOT RECEIVED IN LABORATORY 08/04 1520 Urine Culture - RES URINE ROUT 08/04 1306 Blood Culture - RES BLOOD 08/04 1230 Blood Culture - RES BLOOD Vital Signs Date Time Temp Pulse Resp B/P Pulse O2 O2 Flow FiO2 Ox Delivery Rate 08/06 1029 136/70 08/06 1028 136/70 08/06 0822 98.1 75 20 136/70 96 Nasal 6.0L Cannula 08/06 0122 72 96 08/06 0036 98.2 73 20 118/68 96 BIPAP 08/06 0000 CPAP 6.0L 08/05 2239 68 94 08/05 1600 96 Nasal 6.0L Cannula 08/05 1600 99.3 74 20 176/100 92 Nasal 6.0L Cannula 08/05 1221 152/88 08/05 1220 152/88 Intake & Output 08/06 1600 08/06 0800 08/06 0000 Intake Total 320 Output Total 1550 390 Balance -1550 -70 Intake, IV 20 Intake, Oral 300 Output, Urine 1550 390 Impression/Plan Impression/Plan Impression/Plan: IMPRESSION: 1. Markedly limited evaluation, as detailed above. No central pulmonary embolus identified. 2. Patchy bilateral lung consolidations combined with interstitial prominence and small bilateral pleural effusions in the setting of cardiomegaly. The constellation of these findings is most consistent with congestive heart failure exacerbation, although a superimposed infectious process is not excluded. 3. Reflux of contrast into the hepatic veins is most suggestive of right heart dysfunction. 4. Mediastinal lymphadenopathy, increased since the prior study. 5. Other nonacute findings, as above. Physical Exam General Appearance Alert, Oriented X3, Cooperative, No Acute Distress Skin No Rashes, No Breakdown, No Significant Lesion HEENT Atraumatic, PERRLA, EOMI, Mucous Membr. moist/pink Neck Supple Cardiovascular irrigular irrigular Lungs decrease air entery, expiratory wheeze Abdomen Normal Bowel Sounds, Soft, mild tenderness all over Neurological Normal Speech, Strength at 5/5 X4 Ext, Normal Tone, Sensation Intact, Cranial Nerves 3-12 NL, Reflexes 2+ Extremities No Clubbing, No Cyanosis, bilateral lower extermity chronic erthyma, trace edemma Vascular Normal Pulses IMPRESSION This is a lady with significant obstructive sleep apnea and central apnea, compliant with CPAP, chronic atrial fibrillation on warfarin, previous aortic replacement with bioprosthetic valve, now has moderate to severe aortic stenosis , mild mitral stenosis and regurgitation (noted in the recent echocardiogram done at [facility]), chronic hypercarbic respiratory failure, severe pulmonary hypertension related to valvular heart disease and her sleep apnea with chronic hepatic congestion, Chronic cor pulmonale, significant chronic lung disease with both obstructive restrictive pulmonary physiology, 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 difficile colitis, now comes in with * Resolving Acute hypoxemic and hypercarbic respiratory failure related to acute systolic heart failure due to significant valvular heart disease and diastolic dysfunction * Chronic hypercarbia related to obesity hypoventilation syndrome with sleep apnea and central apnea, Compliant on bedtime CPAP. * Severe pulmonary hypertension with congested liver with high INR, high bilirubin related to severe pulmonary hypertension from valvular heart disease and sleep apnea. * Severe restrictive and obstructive lung disease with poor pulmonary reserve with recurrent Pseudomonas infection in the past with no active evidence of infection. * Chronic atrial fibrillation on warfarin now with supratherapeutic INR, probably related to right heart dysfunction with congested liver * Chronic cor pulmonale due to obstructive restrictive lung disease and from pulmonary hypertension with right heart failure with lower extremity edema and congested liver. * Recent Pseudomonas UTI and C. difficile. RECOMMENDATION * Continue diuresis. Keep potassium more than 4 * IF abd pain persists may need ct abd * Keep the potassium more than 4 to prevent hypercarbia and hypochloremia. Potassium to 40 MG Q twice a day while She is on aggressive diuretic therapy. * Continue CPAP at bedtime and if tolerated in the afternoon if she needs it. * Check cdiff * Hold further antibiotics. * Use as needed nebulizer therapy for wheezing. * Keep the head of bed elevated. * Keep O2 sats around 91-92% to prevent further hypercarbia. Reduce oxygen if tolerated to keep O2 sat at 92%. * Cardio to see Overall prognosis is poor and a long run. DNR and DNI
--- NOTE | 2016-08-06 15:19 | PN- Housestaff ---
Subjective Follow-up For: Acute exacerbation congestive heart failure Chronic hypercapnia Tele-Events Since Last Visit: Atrial fibrillation, heart rate 66-18 No overnight events Subjective: Patient was seen and examined this morning, she feels tired, she denied chest pain, she is on CPAP. She has mild abdominal pain with mild diffuse abdominal tenderness, she had one bowel movement movement of watery diarrhea this morning. Vital signs are stable, no overnight events reported by the patient or the nurses. Review of Systems Constitutional: Reports: see HPI. Objective Last 24 Hrs of Vital Signs/I&O Vital Signs Date Time Temp Pulse Resp B/P Pulse O2 O2 Flow FiO2 Ox Delivery Rate 08/06 1530 98.8 78 20 132/74 94 Nasal 5.0L Cannula 08/06 1029 136/70 08/06 1028 136/70 08/06 0822 98.1 75 20 136/70 96 Nasal 6.0L Cannula 08/06 0800 Nasal 6.0L Cannula 08/06 0122 72 96 08/06 0036 98.2 73 20 118/68 96 BIPAP 08/06 0000 CPAP 6.0L 08/05 2239 68 94 Intake & Output 08/06 1600 08/06 0800 08/06 0000 Intake Total 720 320 Output Total 1400 1550 390 Balance -680 -1550 -70 Intake, IV 20 Intake, Oral 720 300 Output, Urine 1400 1550 390 Physical Exam General Appearance: Alert, Cooperative, No Acute Distress Skin: No Breakdown HEENT: Atraumatic, PERRLA, EOMI, Mucous Membr. moist/pink Neck: Supple Cardiovascular: irrigular irrigular systolic murmur Lungs: Normal Air Movement Abdomen: Normal Bowel Sounds, diffue mild tenderness Neurological: Normal Speech, Strength at 5/5 X4 Ext, Normal Tone, Sensation Intact, Cranial Nerves 3-12 NL, Reflexes 2+ Extremities: No Clubbing, No Cyanosis, bilateral trace pedal edema Assessment/Plan Assessment: Mrs. Hooker is a 85-year-old female with past medical history significant for hypertension, Afib on coumadin, aortic valve(bioprosthetic), obstructive sleep apnea on CPAP, chronic LE edema on lasix, pulmonary HTN, recent history of fall and fracture of left hip and multiple ribs, BIBA from assisted living facility ( [facility]) with CC of SOB and weaknes. CTA 1. Markedly limited evaluation, as detailed above. No central pulmonary embolus identified. 2. Patchy bilateral lung consolidations combined with interstitial prominence and small bilateral pleural effusions in the setting of cardiomegaly. The constellation of these findings is most consistent with congestive heart failure exacerbation, although a superimposed infectious process is not excluded. 3. Reflux of contrast into the hepatic veins is most suggestive of right heart dysfunction. 4. Mediastinal lymphadenopathy, increased since the prior study. 5. Other nonacute findings, as above. Chest x-ray IMPRESSION: There is cardiomegaly and increased interstitial markings with prominent central pulmonary vasculature, consistent with congestive heart failure. Underlying consolidation at the left base cannot be excluded. Problem list #Hypercapnia due to sleep obstructive apnea/acute exacerbation congestive heart failure/possible pneumonia -Repeated chest x-ray 08/06/16 Persistent enlargement of the cardiac silhouette with probable bilateral subsegmental atelectasis. Pneumonia cannot be excluded. There is no definite congestion. -Patient's symptoms improved with diuresis which support the theory of symptoms attributed by acute exacerbation congestive heart failure instead of pneumonia -Continue hold off antibiotics -Keep oxygen saturation above 92% -TRC -Pulmonary consultation was placed, thank you for recommendation -Keep the potassium more than 4 and magnesium more than 2 -Increase potassium supplementation to 40 MG twice a day -Continue CPAP at bedtime and when necessary -Keep bed head elevated, aspiration precaution #Acute exacerbation congestive heart failure -Cardiology consultation for acute CHF exacerbation -Lasix 40 mg twice a day -Strict in and out negative today -INR 2.62, warfarin 2 mg was dosed today -INR increased from 4.032 6.25, patient met the criteria for vitamin K supplementation given the INR value and history of bleeding (recent history of hip fracture and rib fracture), will give 1 dose of vitamin K today -Trend troponin continued to be flat 0.06 and EKG -Continue home medication #Abnormal liver function test -Patient complained of mild abdominal pain today, mild tenderness diffuse on palpation, one episode of watery diarrhea -Patient's family mentioned that patient used to have chronic abdominal pain with frequent evaluation last one was last week at [facility], CT abdomen was obtained and was negative. We'll obtain the records from [facility] -total bilirubin 1.6<1.8<2.4 improving -Direct bilirubin 0.5<0.6 -AST and ALT within normal -Alkaline phosphatase within normal -Hemoglobin is stable, LDH elevated could be because of congestive heart failure with hepatic congestion -Guaiac stool -Aggressive bowel regimen PRN -CTA UPPER ABDOMEN: Reflux of contrast into the hepatic veins. Vascular calcifications. Gaseous distention of the partially visualized bowel, better appreciated on the scanogram. -We'll continue to monitor Code DNR/DNI DVT prophylaxis warfarin Diet heart healthy diet Consultation cardiology and pulmonology Problem List: 1. CHF (congestive heart failure) 2. Multiple rib fractures 3. Atrial fibrillation Pain Ratin Pain Location: N/A Pain Goal: Pain 4 or less Pain Plan: Mild pain pathway Tomorrow's Labs & Rationales: CBC, CMP, INR
[2016-08-06 15:30] VITALS: BP 132/74
--- NOTE | 2016-08-06 16:10 | RADIOLOGY REPORT ---
EXAMINATION: XR PORTABLE CHEST CLINICAL INFORMATION: Shortness of breath. Presumptive diagnosis: COPD. COMPARISON: Portable chest 08/04/2016. TECHNIQUE: Portable AP 80 degrees upright view of the chest was obtained. FINDINGS: There is persistent enlargement of the cardiac silhouette. The lungs are hypoexpanded. There is probable atelectasis in the mid to lower lung cerrato bilaterally. I cannot exclude a superimposed pneumonia. There is no definite vascular congestion. IMPRESSION: Persistent enlargement of the cardiac silhouette with probable bilateral subsegmental atelectasis. Pneumonia cannot be excluded. There is no definite congestion.
--- NOTE | 2016-08-06 18:41 | ECHOCARDIOGRAM REPORT ---
DANYELL PETER Age: 85 : 1930 Gender: F Exam Date: 08/06/2016 13:59 Exam Location: [address] Ht (in): 60 Wt (lb): 202 BSA: 2.02 BP: 124 / 76 Ordering Physician: ALEXANDRA CASON MD Referring Physician: Niles Churchill MD Chief, SoC Technologist: Acacia Youssef [facility] Room Number: [id number] Indications: AFIB/FLUTTER Rhythm: Atrial fibrillation Technical Quality: Good FINDINGS Left Ventricle Normal size left ventricle. Moderate concentric left ventricular hypertrophy. Normal left ventricular ejection fraction visually estimated at >65 %. No obvious regional wall motion abnormalities. Right Ventricle The right ventricle is mildly dilated Right Atrium The right atrium is mildly dilated Left Atrium Moderate left atrial dilatation. Mitral Valve There is moderate thickening/calcification of the mitral valve leaflets with somewhat reduced opening. There is probably mild mitral stenosis by gradient. There is moderate to marked calcification of mitral annulus posteriorly. There is also calcification of the chordal apparatus. There is mild mitral regurgitation. Aortic Valve There is a bioprosthetic aortic valve. The leaflets are heavily calcified and the opening is at least moderately restricted. There is severe aortic stenosis by gradient. Mild aortic regurgitation. Tricuspid Valve Structurally normal tricuspid valve. Mild tricuspid regurgitation. Right ventricular systolic pressure estimated to be elevated at >75 mmHg. Severe pulmonary hypertension. Pulmonic Valve Structurally normal pulmonic valve. Mild pulmonic regurgitation. Pericardium No pericardial or pleural effusion. Great Vessels Normal size aortic root. CONCLUSIONS Moderate concentric left ventricular hypertrophy. Normal left ventricular ejection fraction visually estimated at >65 No obvious regional wall motion abnormalities. The right ventricle is mildly dilated. The right atrium is mildly dilated. Moderate left atrial dilatation. There is moderate thickening/calcification of the mitral valve leaflets with somewhat reduced opening. There is probably mild mitral stenosis by gradient. There is moderate to marked calcification of mitral annulus posteriorly. There is also calcification of the chordal apparatus. There is mild mitral regurgitation. There is a bioprosthetic aortic valve. The leaflets are heavily calcified and the opening is at least moderately restricted. There is severe aortic stenosis by gradient. Mild aortic regurgitation. Right ventricular systolic pressure estimated to be elevated at >75 mmHg. Severe pulmonary hypertension. Niles Churchill M.D. (Electronically Signed) Final Date: 06 August 2016 18:40 MEASUREMENTS (Male / Female) Normal Values 2D ECHO LV Diastolic Diameter PLAX 3.5 cm 4.2 - 5.9 / 3.9 - 5.3 cm LV Systolic Diameter PLAX 2.4 cm 2.1 - 4.0 cm LV Fractional Shortening PLAX 31.4 % 25 - 46 % LV Ejection Fraction 2D Teich 60.4 % IVS Diastolic Thickness 1.5 cm LVPW Diastolic Thickness 1.5 cm LV Relative Wall Thickness 0.9 RV Internal Dim ED PLAX 3.8 cm 1.9 - 3.8 cm LVOT Diameter 1.8 cm Aortic Root Diameter 3.0 cm LA Systolic Diameter LX 6.4 cm 3.0 - 4.0 / 2.7 - 3.8 cm LA Volume 77.0 cm 18 - 58 / 22 - 52 cm Ascending Aorta Diameter 3.1 cm DOPPLER AV Peak Velocity 415.0 cm/s AV Peak Gradient 68.9 mmHg AV Mean Velocity 289.0 cm/s AV Mean Gradient 41.0 mmHg AV Velocity Time Integral 81.1 cm LVOT Peak Velocity 201.0 cm/s LVOT Peak Gradient 16.2 mmHg LVOT Mean Velocity 154.0 cm/s LVOT Mean Gradient 10.0 mmHg LVOT Velocity Time Integral 45.8 cm LVOT Stroke Volume 116.5 cm AV Area Cont Eq vti 1.4 cm AV Area Cont Eq pk 1.2 cm MV Peak Velocity 212.5 cm/s MV Peak Gradient 18.1 mmHg MV Mean Velocity 92.4 cm/s MV Mean Gradient 5.0 mmHg Mitral E Point Velocity 184.0 cm/s MV PHT Velocity 225.0 cm/s MV Deceleration [place] 1371.5 cm/s MV Pressure Half Time 49.2 ms MV Area PHT 4.5 cm MV Deceleration Time 177.0 ms TR Peak Velocity 457.0 cm/s TR Peak Gradient 83.5 mmHg Right Atrial Pressure 5.0 mmHg Pulmonary Artery Systolic Pressu 88.5 mmHg Right Ventricular Systolic Press 88.5 mmHg PV Peak Velocity 108.0 cm/s PV Peak Gradient 4.7 mmHg PV Mean Velocity 67.6 cm/s PV Mean Gradient 2.0 mmHg PV Velocity Time Integral 17.8 cm LV E' Lateral Velocity 12.8 cm/s Mitral E to LV E' Lateral Ratio 14.4 LV E' Septal Velocity 6.0 cm/s Mitral E to LV E' Septal Ratio 30.5
--- NOTE | 2016-08-06 20:00 | PN- Cardiology ---
Subjective Subjective: The patient is diuresing fairly well. She is feeling a little bit better in terms of breathing. Her BUN/creatinine are stable. Her echocardiogram is consistent with her known severe aortic stenosis and severe pulmonary hypertension. Her left ventricular systolic function is normal. She remains in chronic atrial fibrillation with controlled ventricular response. There have been no other significant arrhythmias. Cardiac enzymes are negative 3. Objective Vital Signs and I&Os Vital Signs Date Time Temp Pulse Resp B/P Pulse O2 O2 Flow FiO2 Ox Delivery Rate 08/06 1600 95 Nasal 5.0L Cannula 08/06 1530 98.8 78 20 132/74 94 Nasal 5.0L Cannula 08/06 1029 136/70 08/06 1028 136/70 08/06 0822 98.1 75 20 136/70 96 Nasal 6.0L Cannula 08/06 0800 Nasal 6.0L Cannula 08/06 0122 72 96 08/06 0036 98.2 73 20 118/68 96 BIPAP 08/06 0000 CPAP 6.0L 08/05 2239 68 94 Intake & Output 08/06 1600 08/06 0800 08/06 0000 08/05 1600 08/05 0800 08/05 0000 Intake Total 720 320 480 120 120 Output Total 1400 1550 390 300 300 200 Balance -680 -1550 -70 180 -180 -80 Intake, IV 20 Intake, Oral 720 300 480 120 120 Number 1 Bowel Movements Output, Urine 1400 1550 390 300 300 200 Patient 220 lb Weight Physical Exam: On physical she is in no distress HEENT exam reveals a tremor of the jaw The chest is clear to very limited exam The heart reveals irregular rhythm and a harsh systolic ejection murmur at the base Extremities reveal 1-2+ edema Current Medications: Current Medications Sig/Saulo Start time Last Medication Dose Route Stop Time Status Admin Amlodipine Besylate 5 MG DAILY 08/05 1000 AC 08/06 PO 1028 Atorvastatin Calcium 20 MG DAILY@1700 08/05 1700 AC 08/06 PO 1634 Docusate Sodium 100 MG DAILY NEEDED PRN 08/05 1530 AC PO Escitalopram Oxalate 10 MG DAILY 08/05 1000 AC 08/06 PO 1028 Furosemide 40 MG BID 08/05 1000 AC 08/06 IV 1029 Metoprolol Succinate 50 MG DAILY 08/05 1000 AC 08/06 PO 1029 Oxybutynin Chloride 10 MG Q48 08/06 1000 AC 08/06 PO 1028 Patient Medication 1 ED .STK-MED ONE 08/06 1329 [facility] ED 08/06 1330 Polyethylene Glycol 17 GM DAILY PRN 08/04 1930 AC PO Potassium Chloride 40 MEQ BID 08/05 2200 AC 08/06 PO 1028 Senna 187 MG AT BEDTIME PRN 08/05 1530 AC PO Warfarin Sodium 2 MG COUMADIN 1700 ONE 08/06 1700 DC 08/06 PO 08/06 1701 1635 Results Last 48 Hrs of Labs/Mics: Laboratory Tests 08/06/16 0642: Anion Gap 7, Estimated GFR > 60, BUN/Creatinine Ratio 17.1, Magnesium 2.0, Total Bilirubin 1.6 H, Direct Bilirubin 0.5 H, AST 22, ALT 33, Alkaline Phosphatase 114, Total Protein 6.6, Albumin 3.6, PT 27.2 H, INR 2.62 H, CBC w Diff NO MAN DIFF REQ, RBC 3.68 L, MCV 88.3, MCH 28.1, RDW 19.2 H, MPV 9.5, Gran % 84.3 H, Lymphocytes % 3.5 L, Monocytes % 7.3, Eosinophils % 4.3, Basophils % 0.6, Absolute Granulocytes 10.2 H, Absolute Lymphocytes 0.4 L, Absolute Monocytes 0.9 H, Absolute Eosinophils 0.5, Absolute Basophils 0.1, PUBS MCHC 31.9 L 08/05/16 0655: Anion Gap 11, Estimated GFR > 60, BUN/Creatinine Ratio 18.3, Lactate Dehydrogenase 857 H, PT 64.4 *H, INR 6.25 *H, CBC w Diff NO MAN DIFF REQ, RBC 3.54 L, MCV 87.6, MCH 28.5, RDW 19.6 H, MPV 9.6, Gran % 85.5 H, Lymphocytes % 4.6 L, Monocytes % 7.1, Eosinophils % 2.7, Basophils % 0.1, Absolute Granulocytes 9.0 H, Absolute Lymphocytes 0.5 L, Absolute Monocytes 0.7 H, Absolute Eosinophils 0.3, Absolute Basophils 0, PUBS MCHC 32.5 L 08/05/16 0225: Magnesium 1.7, Total Bilirubin 1.8 H, Direct Bilirubin 0.6 H, AST 20, ALT 31, Alkaline Phosphatase 120, Troponin I 0.06, Total Protein 6.4, Albumin 3.5 08/04/162034: Troponin I 0.06 Recent Imaging Studies: CONCLUSIONS Moderate concentric left ventricular hypertrophy. Normal left ventricular ejection fraction visually estimated at >65 No obvious regional wall motion abnormalities. The right ventricle is mildly dilated. The right atrium is mildly dilated. Moderate left atrial dilatation. There is moderate thickening/calcification of the mitral valve leaflets with somewhat reduced opening. There is probably mild mitral stenosis by gradient. There is moderate to marked calcification of mitral annulus posteriorly. There is also calcification of the chordal apparatus. There is mild mitral regurgitation. There is a bioprosthetic aortic valve. The leaflets are heavily calcified and the opening is at least moderately restricted. There is severe aortic stenosis by gradient. Mild aortic regurgitation. Right ventricular systolic pressure estimated to be elevated at >75 mmHg. Severe pulmonary hypertension. Niles Churchill M.D. (Electronically Signed) Final Date: 06 August 2016 18:40 Assessment/Plan Assessment/Plan The patient is slowly improving. Her breathing is a little bit better. She has negative fluid balance and is tolerating Lasix well. Her echocardiogram shows severe aortic stenosis and severe pulmonary hypertension. Her rhythm is stable. Her cardiac enzymes are negative. Her INR is in the therapeutic range at this time. I recommend that the patient can be discontinued from telemetry monitoring at this time. I would continue her on IV Lasix until her pulmonary congestion and edema have resolved. Close attention should be paid to her electrolytes. She can probably be restarted on her warfarin tomorrow. Continue telemetry? No
[2016-08-06 23:40] VITALS: BP 130/80
--- NOTE | 2016-08-07 07:15 | PN- Housestaff ---
Subjective Follow-up For: Acute exacerbation congestive heart failure Chronic hypercapnia Tele-Events Since Last Visit: Off monitor Subjective: Patient was seen and examined this morning, vital signs are stable, no overnight events reported by the patient or the nurses. Patient denied any abdominal pain this morning, she had 3 bowel movement of soft stool, was Hemoccult negative, C. difficile negative. Review of Systems Constitutional: Reports: see HPI. Objective Last 24 Hrs of Vital Signs/I&O Vital Signs Date Time Temp Pulse Resp B/P Pulse O2 O2 Flow FiO2 Ox Delivery Rate 08/07 1634 98.6 70 17 142/73 93 Nasal 3.0L Cannula 08/07 1126 93 Nasal 3.0L Cannula 08/07 0938 140/74 02 0938 140/74 08/07 0819 98.2 68 17 147/72 97 Nasal 5.0L Cannula 08/07 0816 96 Nasal 5.0L Cannula 08/07 0559 89 08/07 0325 69 96 08/07 0045 69 94 08/06 2340 98.3 74 20 130/80 96 CPAP 08/06 2215 75 95 Intake & Output 08/07 1600 08/07 0800 02/ 0000 Intake Total 400 100 280 Output Total 650 1100 800 Balance -250 -1000 -520 Intake, IV 30 Intake, Oral 400 100 250 Number 2 Bowel Movements Output, Urine 650 1100 800 Physical Exam General Appearance: Alert, Oriented X3, Cooperative, No Acute Distress Skin: No Rashes HEENT: Atraumatic, PERRLA, EOMI, Mucous Membr. moist/pink Neck: Supple Cardiovascular: Regular Rate, Normal S1, Normal S2, No Murmurs Lungs: basal crackles Abdomen: mild diffuse tenderness Neurological: Normal Speech, Strength at 5/5 X4 Ext, Normal Tone, Sensation Intact, Cranial Nerves 3-12 NL, Reflexes 2+ Extremities: No Clubbing, No Cyanosis, trace bilateral edema Assessment/Plan Assessment: Mrs. Hooker is a 85-year-old female with past medical history significant for hypertension, Afib on coumadin, aortic valve(bioprosthetic), obstructive sleep apnea on CPAP, chronic LE edema on lasix, pulmonary HTN, recent history of fall and fracture of left hip and multiple ribs, BIBA from assisted living facility ( [facility]) with CC of SOB and weaknes. CTA 1. Markedly limited evaluation, as detailed above. No central pulmonary embolus identified. 2. Patchy bilateral lung consolidations combined with interstitial prominence and small bilateral pleural effusions in the setting of cardiomegaly. The constellation of these findings is most consistent with congestive heart failure exacerbation, although a superimposed infectious process is not excluded. 3. Reflux of contrast into the hepatic veins is most suggestive of right heart dysfunction. 4. Mediastinal lymphadenopathy, increased since the prior study. 5. Other nonacute findings, as above. Chest x-ray IMPRESSION: There is cardiomegaly and increased interstitial markings with prominent central pulmonary vasculature, consistent with congestive heart failure. Underlying consolidation at the left base cannot be excluded. ECHO Moderate concentric left ventricular hypertrophy. Normal left ventricular ejection fraction visually estimated at >65 No obvious regional wall motion abnormalities. The right ventricle is mildly dilated. The right atrium is mildly dilated. Moderate left atrial dilatation. There is moderate thickening/calcification of the mitral valve leaflets with somewhat reduced opening. There is probably mild mitral stenosis by gradient. There is moderate to marked calcification of mitral annulus posteriorly. There is also calcification of the chordal apparatus. There is mild mitral regurgitation. There is a bioprosthetic aortic valve. The leaflets are heavily calcified and the opening is at least moderately restricted. There is severe aortic stenosis by gradient. Mild aortic regurgitation. Right ventricular systolic pressure estimated to be elevated at >75 mmHg. Severe pulmonary hypertension. Problem list #Hypercapnia due to sleep obstructive apnea/acute exacerbation congestive heart failure/possible pneumonia -Repeated chest x-ray 08/06/16 Persistent enlargement of the cardiac silhouette with probable bilateral subsegmental atelectasis. Pneumonia cannot be excluded. There is no definite congestion. -Patient's symptoms improved with diuresis which support the theory of symptoms attributed to acute exacerbation congestive heart failure instead of pneumonia -Continue hold off antibiotics -Keep oxygen saturation above 92% -TRC -Pulmonary consultation was placed, thank you for recommendation -Keep the potassium more than 4 and magnesium more than 2 -Increase potassium supplementation to 40 MG twice a day -Continue CPAP at bedtime and when necessary -Keep bed head elevated, aspiration precaution #Acute exacerbation congestive heart failure -Cardiology consultation for acute CHF exacerbation -Lasix 40 mg twice a day -Strict in and out negative today -Dose warfarin today 5 mg -INR increased from 4.032 6.25, patient met the criteria for vitamin K supplementation given the INR value and history of bleeding (recent history of hip fracture and rib fracture), 1 dose of vitamin K was given -Troponin continued to be flat 0.06 and EKG -Continue home medication #Abnormal liver function test -Patient complained of mild abdominal pain today, mild tenderness diffuse on palpation, one episode of watery diarrhea -Patient's family mentioned that patient used to have chronic abdominal pain with frequent evaluation last one was last week at [facility], CT abdomen was obtained on 07/22/16 showed colonic dilatation is improved, no finding suggest mechanical bowel obstruction, there is minimal cranial fluid in the pelvis of uncertain etiology. -total bilirubin 1.6<1.8<2.4 improving -Direct bilirubin 0.5<0.6 -AST and ALT within normal -Alkaline phosphatase within normal -Hemoglobin is stable, LDH elevated could be because of congestive heart failure with hepatic congestion -Guaiac stool -Patient had total of 4 bowel movement of low loose stool yesterday -C. difficile negative -CTA 08/04/16 UPPER ABDOMEN: Reflux of contrast into the hepatic veins. Vascular calcifications. Gaseous distention of the partially visualized bowel, better appreciated on the scanogram. -We'll continue to monitor Code DNR/DNI DVT prophylaxis warfarin Diet heart healthy diet Consultation cardiology and pulmonology Problem List: 1. Atrial fibrillation 2. CHF (congestive heart failure) 3. Trauma Pain Ratin Pain Location: Abdominal pain Pain Goal: Pain 4 or less Pain Plan: Mild pain pathway Tomorrow's Labs & Rationales: CBC, CMP, INR
[2016-08-07 08:03] LABS: ABSOLUTE BASOPHIL COUNT 0 /CUMM (0.0-0.2); ABSOLUTE EOSINOPHIL COUNT 0.4 /CUMM (0.0-0.7); ABSOLUTE GRANULOCYTE CT 10.6 /CUMM (1.4-6.5); ABSOLUTE LYMPH COUNT 0.5 /CUMM (1.2-3.4); ABSOLUTE MONOCYTE COUNT 0.7 /CUMM (0.10-0.60); BASOPHIL % 0.1 % (0.0-2.0); EOSINOPHIL % 3.5 % (0-5); HEMATOCRIT 32.1 % (37-47); MEAN CORPUSCULAR HGB 28.1 PG (27.0-31.0); MEAN CORPUSCULAR HGB CONC 32.2 G/DL (33.0-37.0); MEAN CORPUSCULAR VOLUME 87.2 FL (81.0-99.0); MEAN PLATELET VOLUME 9.5 FL (7.4-10.4); PLATELET COUNT 377 /CUMM (130-400); RBC DISTRIBUTION WIDTH 19.1 % (11.5-14.5); RED BLOOD CELL CT 3.68 /CUMM (4.20-5.40); WHITE BLOOD CELL COUNT 12.3 /CUMM (4.8-10.8)
[2016-08-07 08:19] VITALS: BP 147/72
[2016-08-07 08:24] LABS: PT 19.9 SEC (9.4-12.5)
[2016-08-07 09:00] LABS: GRANULOCYTE % 86.1 % (42.2-75.2)
--- NOTE | 2016-08-07 09:19 | PN- Att Addend ---
Attending Addendum Attending Brief Note Patient reports improved respiratory symptoms this morning General Appearance: Alert, No Acute Distress Skin: Grossly normal HEENT: PEERLA Neck: Supple, No JVD Cardiovascular: Regular Rate, Normal S1, Normal S2, No Murmurs Lungs: Decreased air entry all lung cerrato, right basilar crackles Abdomen: Normal Bowel Sounds, Soft, No Tenderness Neurological: Normal Speech, Strength at 5/5 X4 Ext, Cranial Nerves 3-12 NL, Reflexes 2+ Extremities: 1+ pedal edema Vascular: Normal Pulses Assessment 85-year-old female with history of hypertension, atrial fibrillation on Coumadin , aortic valve replacement, central apnea on CPAP, chronic lower extremity edema presenting with acute respiratory distress. CTA negative for VTE however there is suggestion of bilateral opacifications with interstitial edema. her respiratory symptoms are secondary to fluid overload rather than infection. Echo shows severe stenosis and pulmonary hypertension with preserved ejection fraction. Since her breathing has somewhat improved on IV Lasix we will continue diabetes Plan Continue IV Lasix 40 mg twice a day Check I's and O's and daily weights \Continue Coumadin Continue CPAP at bedtime DNI/DNR Current Medications Sig/Saulo Start time Last Medication Dose Route Stop Time Status Admin Amlodipine Besylate 5 MG DAILY 08/05 1000 AC 08/06 PO 1028 Atorvastatin Calcium 20 MG DAILY@1700 08/05 1700 AC 08/06 PO 1634 Docusate Sodium 100 MG DAILY NEEDED PRN 08/05 1530 AC PO Escitalopram Oxalate 10 MG DAILY 08/05 1000 AC 08/06 PO 1028 Furosemide 40 MG BID 08/05 1000 AC 08/06 IV 2122 Melatonin 5 MG ONCE ONE 08/07 0230 DC 08/07 PO 08/07 0231 0233 Metoprolol Succinate 50 MG DAILY 08/05 1000 AC 08/06 PO 1029 Oxybutynin Chloride 10 MG Q48 08/06 1000 AC 08/06 PO 1028 Patient Medication 1 ED .STK-MED ONE 08/06 1329 DC Teaching ED 08/06 1330 Polyethylene Glycol 17 GM DAILY PRN 08/04 1930 AC PO Potassium Chloride 40 MEQ BID 08/05 2200 AC 08/06 PO 2122 Senna 187 MG AT BEDTIME PRN 08/05 1530 AC PO Warfarin Sodium 2 MG COUMADIN 1700 ONE 08/06 1700 DC 08/06 PO 08/06 1701 1635 Laboratory Tests 02/03 0630 Chemistry Sodium (137 - 145 mmol/L) 142 Potassium (3.5 - 5.1 mmol/L) 4.4 Chloride (98 - 107 mmol/L) 98 Carbon Dioxide (22 - 30 mmol/L) 37 H Anion Gap (5 - 16) 8 BUN (7 - 17 mg/dL) 13 Creatinine (0.5 - 1.0 mg/dL) 0.7 Estimated GFR (>60 ml/min) > 60 BUN/Creatinine Ratio (7 - 25 %) 18.6 Coagulation PT (9.4 - 12.5 SEC) 19.9 H INR (0.90 - 1.19) 1.91 H Hematology CBC w Diff NO MAN DIFF REQ WBC (4.8 - 10.8 /CUMM) 12.3 H RBC (4.20 - 5.40 /CUMM) 3.68 L Hgb (12.0 - 16.0 G/DL) 10.4 L Hct (37 - 47 %) 32.1 L MCV (81.0 - 99.0 FL) 87.2 MCH (27.0 - 31.0 PG) 28.1 RDW (11.5 - 14.5 %) 19.1 H Plt Count (130 - 400 /CUMM) 377 MPV (7.4 - 10.4 FL) 9.5 Gran % (42.2 - 75.2 %) 86.1 H Lymphocytes % (20.5 - 51.1 %) 4.3 L Monocytes % (1.7 - 9.3 %) 6.0 Eosinophils % (0 - 5 %) 3.5 Basophils % (0.0 - 2.0 %) 0.1 Absolute Granulocytes (1.4 - 6.5 /CUMM) 10.6 H Absolute Lymphocytes (1.2 - 3.4 /CUMM) 0.5 L Absolute Monocytes (0.10 - 0.60 /CUMM) 0.7 H Absolute Eosinophils (0.0 - 0.7 /CUMM) 0.4 Absolute Basophils (0.0 - 0.2 /CUMM) 0 PUBS MCHC (33.0 - 37.0 G/DL) 32.2 L Vital Signs Date Time Temp Pulse Resp B/P Pulse O2 O2 Flow FiO2 Ox Delivery Rate 08/07 0819 98.2 68 17 147/72 97 Nasal 5.0L Cannula 08/07 0559 89 08/07 0325 69 96 08/07 0045 69 94 08/06 2340 98.3 74 20 130/80 96 CPAP 08/06 2215 75 95 08/06 1600 95 Nasal 5.0L Cannula 08/06 1530 98.8 78 20 132/74 94 Nasal 5.0L Cannula 08/06 1029 136/70 02 1028 136/70
--- NOTE | 2016-08-07 09:25 | PN- Cardiology ---
Subjective Subjective: The patient seems comfortable. She is complaining of some nausea however. She is not in any respiratory distress. She is diuresing fairly well. She is now off telemetry as there were no arrhythmias aside from chronic atrial fibrillation. Objective Vital Signs and I&Os Vital Signs Date Time Temp Pulse Resp B/P Pulse O2 O2 Flow FiO2 Ox Delivery Rate 08/07 08 98.2 68 17 147/72 97 Nasal 5.0L Cannula 08/07 0559 89 08/07 0325 69 96 08/07 0045 69 94 08/06 2340 98.3 74 20 130/80 96 CPAP 08/06 2215 75 95 08/06 1600 95 Nasal 5.0L Cannula 08/06 1530 98.8 78 20 132/74 94 Nasal 5.0L Cannula 08/06 1029 136/70 08/06 1028 136/70 Intake & Output 08/07 1600 08/07 0800 08/07 0000 08/06 1600 08/06 0800 08/06 0000 Intake Total 100 280 720 320 Output Total 8319 600 2672 1550 390 Balance -1000 -520 -680 -1550 -70 Intake, IV 30 20 Intake, Oral 100 250 720 300 Number 2 Bowel Movements Output, Urine 4863 247 9546 1550 390 Physical Exam: She is in no distress HEENT exam is normal Chest is clear to limited exam Heart reveals a harsh systolic ejection murmur at the base and irregular rhythm Extremities reveal only trace edema today Current Medications: Current Medications Sig/Saulo Start time Last Medication Dose Route Stop Time Status Admin Amlodipine Besylate 5 MG DAILY 08/05 1000 AC 08/06 PO 1028 Atorvastatin Calcium 20 MG DAILY@1700 08/05 1700 AC 08/06 PO 1634 Docusate Sodium 100 MG DAILY NEEDED PRN 08/05 1530 AC PO Escitalopram Oxalate 10 MG DAILY 08/05 1000 AC 08/06 PO 1028 Furosemide 40 MG BID 08/05 1000 AC 08/06 IV 2122 Melatonin 5 MG ONCE ONE 08/07 0230 DC 08/07 PO 08/07 0231 0233 Metoprolol Succinate 50 MG DAILY 08/05 1000 AC 08/06 PO 1029 Oxybutynin Chloride 10 MG Q48 08/06 1000 AC 08/06 PO 1028 Patient Medication 1 ED .STK-MED ONE 08/06 1329 DC Teaching ED 08/06 1330 Polyethylene Glycol 17 GM DAILY PRN 08/04 1930 AC PO Potassium Chloride 40 MEQ BID 08/05 2200 AC 08/06 PO 2122 Senna 187 MG AT BEDTIME PRN 08/05 1530 AC PO Warfarin Sodium 2 MG COUMADIN 1700 ONE 08/06 1700 DC 08/06 PO 08/06 1701 1635 Results Last 48 Hrs of Labs/Mics: Laboratory Tests 08/07/16 0630: Anion Gap 8, Estimated GFR > 60, BUN/Creatinine Ratio 18.6, PT 19.9 H, INR 1.91 H, CBC w Diff NO MAN DIFF REQ, RBC 3.68 L, MCV 87.2, MCH 28.1, RDW 19.1 H, MPV 9.5, Gran % 86.1 H, Lymphocytes % 4.3 L, Monocytes % 6.0, Eosinophils % 3.5, Basophils % 0.1, Absolute Granulocytes 10.6 H, Absolute Lymphocytes 0.5 L , Absolute Monocytes 0.7 H, Absolute Eosinophils 0.4, Absolute Basophils 0, PUBS MCHC 32.2 L 08/06/16 0642: Anion Gap 7, Estimated GFR > 60, BUN/Creatinine Ratio 17.1, Magnesium 2.0, Total Bilirubin 1.6 H, Direct Bilirubin 0.5 H, AST 22, ALT 33, Alkaline Phosphatase 114, Total Protein 6.6, Albumin 3.6, PT 27.2 H, INR 2.62 H, CBC w Diff NO MAN DIFF REQ, RBC 3.68 L, MCV 88.3, MCH 28.1, RDW 19.2 H, MPV 9.5, Gran % 84.3 H, Lymphocytes % 3.5 L, Monocytes % 7.3, Eosinophils % 4.3, Basophils % 0.6, Absolute Granulocytes 10.2 H, Absolute Lymphocytes 0.4 L, Absolute Monocytes 0.9 H, Absolute Eosinophils 0.5, Absolute Basophils 0.1, PUBS MCHC 31.9 L Assessment/Plan Assessment/Plan The patient is slowly improving. Her breathing is a little bit better. She has negative fluid balance and is tolerating Lasix well. Her echocardiogram shows severe aortic stenosis and severe pulmonary hypertension. Her rhythm is stable with chronic rate controlled atrial fibrillation. Her cardiac enzymes are negative. Her INR is 1.91. I would continue her on IV Lasix until her pulmonary congestion and edema have resolved. Close attention should be paid to her electrolytes. She can probably be restarted on her warfarin today. Continue telemetry? No
--- NOTE | 2016-08-07 11:14 | PN- Pulmonary ---
Subjective HPI/Critical Care Issues: The patient seems comfortable. She is complaining of some nausea however. She is not in any respiratory distress. She is diuresing fairly well. She is now off telemetry as there were no arrhythmias aside from chronic atrial fibrillation. Objective Current Medications: Current Medications Sig/Saulo Start time Last Medication Dose Route Stop Time Status Admin Amlodipine Besylate 5 MG DAILY 08/05 1000 AC 08/07 PO 0938 Atorvastatin Calcium 20 MG DAILY@1700 08/05 1700 AC 08/06 PO 1634 Docusate Sodium 100 MG DAILY NEEDED PRN 08/05 1530 AC PO Escitalopram Oxalate 10 MG DAILY 08/05 1000 AC 08/07 PO 0938 Furosemide 40 MG BID 08/05 1000 AC 08/07 IV 0938 Melatonin 5 MG ONCE ONE 08/07 0230 DC 08/07 PO 08/07 0231 0233 Metoprolol Succinate 50 MG DAILY 08/05 1000 AC 08/07 PO 0938 Oxybutynin Chloride 10 MG Q48 08/06 1000 AC 08/06 PO 1028 Patient Medication 1 ED .STK-MED ONE 08/06 1329 DC Teaching ED 08/06 1330 Polyethylene Glycol 17 GM DAILY PRN 08/04 1930 AC PO Potassium Chloride 40 MEQ BID 08/05 2200 AC 08/07 PO 0938 Senna 187 MG AT BEDTIME PRN 08/05 1530 AC PO Warfarin Sodium 2 MG COUMADIN 1700 ONE 08/06 1700 DC 08/06 PO 08/06 1701 1635 Vital Signs & I&O Last 24 Hrs of Vitals and I&O: Vital Signs Date Time Temp Pulse Resp B/P Pulse O2 O2 Flow FiO2 Ox Delivery Rate 08/07 0938 140/74 08/07 0938 140/74 08/07 0819 98.2 68 17 147/72 97 Nasal 5.0L Cannula 08/07 0816 96 Nasal 5.0L Cannula 08/07 0559 89 / 0325 69 96 / 0045 69 94 08/06 2340 98.3 74 20 130/80 96 CPAP 08/06 2215 75 95 / 1600 95 Nasal 5.0L Cannula 08/06 1530 98.8 78 20 132/74 94 Nasal 5.0L Cannula Intake & Output 08/07 1600 08/07 0800 02 0000 Intake Total 100 280 Output Total 1100 800 Balance -1000 -520 Intake, IV 30 Intake, Oral 100 250 Number 2 Bowel Movements Output, Urine 1100 800 Impression/Plan Impression/Plan Impression/Plan: IMPRESSION: 1. Markedly limited evaluation, as detailed above. No central pulmonary embolus identified. 2. Patchy bilateral lung consolidations combined with interstitial prominence and small bilateral pleural effusions in the setting of cardiomegaly. The constellation of these findings is most consistent with congestive heart failure exacerbation, although a superimposed infectious process is not excluded. 3. Reflux of contrast into the hepatic veins is most suggestive of right heart dysfunction. 4. Mediastinal lymphadenopathy, increased since the prior study. 5. Other nonacute findings, as above. Physical Exam General Appearance Alert, Oriented X3, Cooperative, No Acute Distress Skin No Rashes, No Breakdown, No Significant Lesion HEENT Atraumatic, PERRLA, EOMI, Mucous Membr. moist/pink Neck Supple Cardiovascular irrigular irrigular Lungs decrease air entery, expiratory wheeze Abdomen Normal Bowel Sounds, Soft, mild tenderness all over Neurological Normal Speech, Strength at 5/5 X4 Ext, Normal Tone, Sensation Intact, Cranial Nerves 3-12 NL, Reflexes 2+ Extremities No Clubbing, No Cyanosis, bilateral lower extermity chronic erthyma, trace edemma Vascular Normal Pulses IMPRESSION This is a lady with significant obstructive sleep apnea and central apnea, compliant with CPAP, chronic atrial fibrillation on warfarin, previous aortic replacement with bioprosthetic valve, now has moderate to severe aortic stenosis , mild mitral stenosis and regurgitation (noted in the recent echocardiogram done at [facility]), chronic hypercarbic respiratory failure, severe pulmonary hypertension related to valvular heart disease and her sleep apnea with chronic hepatic congestion, Chronic cor pulmonale, significant chronic lung disease with both obstructive restrictive pulmonary physiology, 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 difficile colitis, now comes in with * Resolving Acute hypoxemic and hypercarbic respiratory failure related to acute systolic heart failure due to significant valvular heart disease and diastolic dysfunction. Pt has severe , MS * Chronic hypercarbia related to obesity hypoventilation syndrome with sleep apnea and central apnea, Compliant on bedtime CPAP. * Severe pulmonary hypertension with congested liver with high INR, high bilirubin related to severe pulmonary hypertension from valvular heart disease and sleep apnea. * Severe restrictive and obstructive lung disease with poor pulmonary reserve with recurrent Pseudomonas infection in the past with no active evidence of infection. * Chronic atrial fibrillation on warfarin now with supratherapeutic INR, probably related to right heart dysfunction with congested liver * Chronic cor pulmonale due to obstructive restrictive lung disease and from pulmonary hypertension with right heart failure with lower extremity edema and congested liver. * Recent Pseudomonas UTI and C. difficile. RECOMMENDATION * Continue diuresis. Keep potassium more than 4 * Keep the potassium more than 4 to prevent hypercarbia and hypochloremia. * Continue CPAP at bedtime and if tolerated in the afternoon if she needs it. * Check cdiff * Hold further antibiotics. * Use as needed nebulizer therapy for wheezing. * Keep the head of bed elevated. * Keep O2 sats around 91-92% to prevent further hypercarbia. Reduce oxygen if tolerated to keep O2 sat at 92%. Overall prognosis is poor and a long run. DNR and DNI
--- NOTE | 2016-08-07 11:25 | NUR ---
Physical Therapy: The patient was a mauri lift at her [facility] facility prior to admission. She should continue to be a mauri lift while here at [facility]. She should return to [facility] when medically appropriate and continue skilled physical therapy in a rehabilitation setting as appropriate.
[2016-08-07 16:34] VITALS: BP 142/73
[2016-08-07 23:57] VITALS: BP 122/68
[2016-08-08 07:51] VITALS: BP 132/80
[2016-08-08 08:20] LABS: ABSOLUTE BASOPHIL COUNT 0.1 /CUMM (0.0-0.2); ABSOLUTE EOSINOPHIL COUNT 0.5 /CUMM (0.0-0.7); ABSOLUTE GRANULOCYTE CT 9.4 /CUMM (1.4-6.5); ABSOLUTE LYMPH COUNT 0.6 /CUMM (1.2-3.4); ABSOLUTE MONOCYTE COUNT 0.9 /CUMM (0.10-0.60); BASOPHIL % 0.6 % (0.0-2.0); EOSINOPHIL % 4.3 % (0-5); HEMATOCRIT 34.8 % (37-47); MEAN CORPUSCULAR HGB 28.2 PG (27.0-31.0); MEAN CORPUSCULAR HGB CONC 32.2 G/DL (33.0-37.0); MEAN CORPUSCULAR VOLUME 87.7 FL (81.0-99.0); MEAN PLATELET VOLUME 9.5 FL (7.4-10.4); RBC DISTRIBUTION WIDTH 19.1 % (11.5-14.5); RED BLOOD CELL CT 3.97 /CUMM (4.20-5.40)
[2016-08-08 09:06] LABS: PT 23.1 SEC (9.4-12.5)
--- NOTE | 2016-08-08 10:04 | PN- Cardiology ---
Subjective Subjective: * Patient reports a non-descript feeling of ill-being along with shortness of breath. * slightly increased WBC noted yesterday with todays labs pending * Increased total bilirubin is coming down * INR 2.22 Objective Vital Signs and I&Os Vital Signs Date Time Temp Pulse Resp B/P Pulse O2 O2 Flow FiO2 Ox Delivery Rate 08/08 0941 132/80 08/08 0941 132/80 08/08 0833 94 Nasal 3.0L Cannula 08/08 0751 99.3 65 18 132/80 95 CPAP 08/08 0034 84 92 08/08 0000 CPAP 08/07 2357 98.1 66 18 122/68 95 BIPAP 08/07 2130 93 Nasal 3.0L Cannula 08/07 2129 78 94 08/07 1634 98.6 70 17 142/73 93 Nasal 3.0L Cannula 08/07 1600 96 Nasal 3.0L Cannula 08/07 1126 93 Nasal 3.0L Cannula Intake & Output 08/08 1600 08/08 0800 08/08 0000 08/07 1600 08/07 0800 08/07 0000 Intake Total 620 400 100 280 Output Total 650 6614 360 8848 800 Balance -650 -1330 -250 -1000 -520 Intake, IV 30 Intake, Oral 620 400 100 250 Number 2 Bowel Movements Output, Urine 650 9293 014 7468 800 Patient 220 lb Weight Physical Exam: General: WD/overweight female in NAD; alert and oriented with decreased memory Neck: no JVD Heart: irregularly irregular with 2/6 systolic murmur at the LLSB and RUSB Lungs: crackles at bases bilaterally Extremities: no edema Assessment/Plan Assessment/Plan * Patient has shortness of breath with bilateral crackles at the bases bilaterally. Increase Lasix to 60mg IV BID with careful monitoring of her BUN, creatinine and potassium. Continue telemetry? No
[2016-08-08 10:20] LABS: PLATELET COUNT 397 /CUMM (130-400); WHITE BLOOD CELL COUNT 11.4 /CUMM (4.8-10.8)
--- NOTE | 2016-08-08 10:30 | PN- Housestaff ---
CHE VASQUEZ,SANDRA 08/08/16 1030: Subjective Follow-up For: Acute exacerbation congestive heart failure Chronic hypercapnia Complaints: no complaints Subjective: Patient is seen and examined at the bedside today she was not having any active complaints. Review of Systems Constitutional: Reports: weakness. EENTM: Denies: no symptoms. Cardiovascular: Reports: orthopena, palpitations, peripheral edema. Denies: chest pain, edema. Respiratory: Reports: orthopnea, short of breath. Denies: cough, hemoptysis, sputum production, stridor. Gastrointestinal: Reports: abdominal pain, bloating, distention. Denies: constipation, diarrhea, nausea, bloody stool. Genitourinary: Denies: no symptoms. Musculoskeletal: Denies: no symptoms. Skin: Denies: no symptoms. Neurological/Psychological: Reports: anxiety. Objective Last 24 Hrs of Vital Signs/I&O Vital Signs Date Time Temp Pulse Resp B/P Pulse O2 O2 Flow FiO2 Ox Delivery Rate 08/08 2230 70 95 08/08 2151 99.2 64 20 154/86 96 Nasal 3.0L Cannula 08/08 2000 98.3 08/08 1914 0.0 08/08 1845 Nasal 3.0L Cannula 08/08 1845 98.3 68 20 134/76 96 Nasal 4.0L Cannula 08/08 1630 94 Nasal 3.0L Cannula 08/08 1621 98.7 68 17 112/62 92 Nasal 3.0L Cannula 08/08 0941 132/80 / 0941 132/80 08/08 0833 94 Nasal 3.0L Cannula 08/08 0751 99.3 65 18 132/80 95 CPAP 08/08 0034 84 92 08/08 0000 CPAP 08/07 2357 98.1 66 18 122/68 95 BIPAP Intake & Output 08/08 1600 /04 0800 02/04 0000 Intake Total 480 620 Output Total 5047 740 1837 Balance -920 -650 -1330 Intake, IV 80 Intake, Oral 400 620 Number 1 Bowel Movements Output, Urine 1411 868 3968 Patient 99.79 kg Weight Physical Exam General Appearance: Alert, Oriented X3, Cooperative, No Acute Distress Skin: No Rashes, No Breakdown HEENT: Atraumatic, PERRLA, EOMI Neck: Supple, No JVD, No thryomegaly Cardiovascular: Regular Rate, Normal S1, Normal S2 Lungs: bilateral basilar crackles Abdomen: Soft, No Tenderness, No Hepatospenomegaly Neurological: Normal Speech Extremities: No Clubbing, No Cyanosis, No Edema Vascular: Normal Pulses, Pulses Symmetrical Assessment/Plan Assessment: Mrs. Hooker is a 85-year-old female with past medical history significant for hypertension, Afib on coumadin, aortic valve(bioprosthetic), obstructive sleep apnea on CPAP, chronic LE edema on lasix, pulmonary HTN, recent history of fall and fracture of left hip and multiple ribs, BIBA from assisted living facility ( [facility]) with CC of SOB and weaknes. CTA 1. Markedly limited evaluation, as detailed above. No central pulmonary embolus identified. 2. Patchy bilateral lung consolidations combined with interstitial prominence and small bilateral pleural effusions in the setting of cardiomegaly. The constellation of these findings is most consistent with congestive heart failure exacerbation, although a superimposed infectious process is not excluded. 3. Reflux of contrast into the hepatic veins is most suggestive of right heart dysfunction. 4. Mediastinal lymphadenopathy, increased since the prior study. 5. Other nonacute findings, as above. Chest x-ray IMPRESSION: There is cardiomegaly and increased interstitial markings with prominent central pulmonary vasculature, consistent with congestive heart failure. Underlying consolidation at the left base cannot be excluded. ECHO Moderate concentric left ventricular hypertrophy. Normal left ventricular ejection fraction visually estimated at >65 No obvious regional wall motion abnormalities. The right ventricle is mildly dilated. The right atrium is mildly dilated. Moderate left atrial dilatation. There is moderate thickening/calcification of the mitral valve leaflets with somewhat reduced opening. There is probably mild mitral stenosis by gradient. There is moderate to marked calcification of mitral annulus posteriorly. There is also calcification of the chordal apparatus. There is mild mitral regurgitation. There is a bioprosthetic aortic valve. The leaflets are heavily calcified and the opening is at least moderately restricted. There is severe aortic stenosis by gradient. Mild aortic regurgitation. Right ventricular systolic pressure estimated to be elevated at >75 mmHg. Severe pulmonary hypertension. Assessment and plan - * Patient is transferred to the general medical floors * We increase the Lasix to 60 milligram IV BID, as suggested by Dr. De Jesus * We will also check the BUN and creatinine tomorrow * Keep oxygen saturation above 92% * TRC * Continue CPAP at bedtime and when necessary * Keep bed head elevated, aspiration precaution * Lasix 40 mg twice a day * Strict intake and output charting * We will does warfarin according to PT/INR * Continue home medication * Diet-heart healthy diet * DVT prophylaxis-ALP S/Warfarin * CODE STATUS-DNR/DNI Problem List: 1. Sleep apnea 2. CHF (congestive heart failure) 3. Atrial fibrillation Pain Ratin Pain Location: none Pain Goal: Remain pain free Pain Plan: mild Tomorrow's Labs & Rationales: bep DVT/Prophylaxis: mechanical, pharmacological MILAD HARRIS MD 08/08/16 1245: Attending MD Review Statement Attending Statement Attending MD Statement: examined this patient, discuss w/resident/PA/[employer] SYSTEM[employer] TECHNICIAN, agreed w/resident/PA/A[employer]DR[employer] SYSTEMS TECHNICIAN, discussed with family, reviewed EMR data (avail), amended to note Attending Assessment/Plan: Mrs. Hooker was interviewed and examined with her family present. Her EMR was reviewed. She is not having any chest pain or palpitations today. She also states that with what minimal exertion she does she is not having any shortness of breath. She does complain of leg pain. She remains afebrile with satisfactory vital signs. Oxygen saturations are in the mid 90s on 3 L. She appears to be in no acute distress. Limited pulmonary exam is benign. Cardiovascular exam reveals a regular rhythm with a 3/6 DIANA. Abdomen is mildly and diffusely tender to palpation. Extremities show trace edema. We should continue to treat her congestive heart failure with intravenous Lasix as per cardiology. Careful monitoring of her renal function should be continued. Supplemental oxygen should be tapered as saturations allow. We should continue her maintenance medications.
--- NOTE | 2016-08-08 13:30 | PN- Pulmonary ---
Subjective HPI/Critical Care Issues: * Patient reports a non-descript feeling of ill-being along with shortness of breath. * slightly increased WBC noted yesterday with todays labs pending * Increased total bilirubin is coming down * INR 2.22 Objective Current Medications: Current Medications Sig/Saulo Start time Last Medication Dose Route Stop Time Status Admin Amlodipine Besylate 5 MG DAILY 08/05 1000 AC 08/08 PO 0941 Atorvastatin Calcium 20 MG DAILY@1700 08/05 1700 AC 08/07 PO 1744 Docusate Sodium 100 MG DAILY NEEDED PRN 08/05 1530 AC PO Escitalopram Oxalate 10 MG DAILY 08/05 1000 AC 08/08 PO 0939 Furosemide 40 MG BID 08/05 1000 AC 08/08 IV 0940 Metoprolol Succinate 50 MG DAILY 08/05 1000 AC 08/08 PO 0941 Oxybutynin Chloride 10 MG Q48 08/06 1000 AC 08/08 PO 0939 Polyethylene Glycol 17 GM DAILY PRN 08/04 1930 AC PO Potassium Chloride 40 MEQ BID 08/05 2200 AC 08/08 PO 0939 Senna 187 MG AT BEDTIME PRN 08/05 1530 AC PO Warfarin Sodium 5 MG COUMADIN 1700 ONE 08/07 1700 DC / PO / 1701 1744 Vital Signs & I&O Last 24 Hrs of Vitals and I&O: Vital Signs Date Time Temp Pulse Resp B/P Pulse O2 O2 Flow FiO2 Ox Delivery Rate / 0941 132/80 02/ 0941 132/80 / 0833 94 Nasal 3.0L Cannula 08/08 0751 99.3 65 18 132/80 95 CPAP / 0034 84 92 08/08 0000 CPAP 08/07 2357 98.1 66 18 122/68 95 BIPAP / 2130 93 Nasal 3.0L Cannula 08/07 2129 78 94 / 1634 98.6 70 17 142/73 93 Nasal 3.0L Cannula 08/07 1600 96 Nasal 3.0L Cannula Intake & Output 08/08 1600 08/08 0800 02/ 0000 Intake Total 620 Output Total 650 1950 Balance -650 -1330 Intake, Oral 620 Output, Urine 650 1950 Patient 220 lb Weight Impression/Plan Impression/Plan Impression/Plan: IMPRESSION: 1. Markedly limited evaluation, as detailed above. No central pulmonary embolus identified. 2. Patchy bilateral lung consolidations combined with interstitial prominence and small bilateral pleural effusions in the setting of cardiomegaly. The constellation of these findings is most consistent with congestive heart failure exacerbation, although a superimposed infectious process is not excluded. 3. Reflux of contrast into the hepatic veins is most suggestive of right heart dysfunction. 4. Mediastinal lymphadenopathy, increased since the prior study. 5. Other nonacute findings, as above. Physical Exam General Appearance Alert, Oriented X3, Cooperative, No Acute Distress Skin No Rashes, No Breakdown, No Significant Lesion HEENT Atraumatic, PERRLA, EOMI, Mucous Membr. moist/pink Neck Supple Cardiovascular irrigular irrigular Lungs decrease air entery, expiratory wheeze Abdomen Normal Bowel Sounds, Soft, mild tenderness all over Neurological Normal Speech, Strength at 5/5 X4 Ext, Normal Tone, Sensation Intact, Cranial Nerves 3-12 NL, Reflexes 2+ Extremities No Clubbing, No Cyanosis, bilateral lower extermity chronic erthyma, trace edemma Vascular Normal Pulses IMPRESSION This is a lady with significant obstructive sleep apnea and central apnea, compliant with CPAP, chronic atrial fibrillation on warfarin, previous aortic replacement with bioprosthetic valve, now has moderate to severe aortic stenosis , mild mitral stenosis and regurgitation (noted in the recent echocardiogram done at [facility]), chronic hypercarbic respiratory failure, severe pulmonary hypertension related to valvular heart disease and her sleep apnea with chronic hepatic congestion, Chronic cor pulmonale, significant chronic lung disease with both obstructive restrictive pulmonary physiology, 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 difficile colitis, now comes in with * Resolving Acute hypoxemic and hypercarbic respiratory failure related to acute systolic heart failure due to significant valvular heart disease and diastolic dysfunction. Pt has severe , MS * Chronic hypercarbia related to obesity hypoventilation syndrome with sleep apnea and central apnea, Compliant on bedtime CPAP. * Severe pulmonary hypertension with congested liver with high INR, high bilirubin related to severe pulmonary hypertension from valvular heart disease and sleep apnea. * Severe restrictive and obstructive lung disease with poor pulmonary reserve with recurrent Pseudomonas infection in the past with no active evidence of infection. * Chronic atrial fibrillation on warfarin now with supratherapeutic INR, probably related to right heart dysfunction with congested liver * Chronic cor pulmonale due to obstructive restrictive lung disease and from pulmonary hypertension with right heart failure with lower extremity edema and congested liver. * Recent Pseudomonas UTI and C. difficile. RECOMMENDATION * Continue diuresis. Keep potassium more than 4 * Keep the potassium more than 4 to prevent hypercarbia and hypochloremia. * Continue CPAP at bedtime and if tolerated in the afternoon if she needs it. * Use as needed nebulizer therapy for wheezing. * Keep the head of bed elevated. * Keep O2 sats around 91-92% to prevent further hypercarbia. Reduce oxygen if tolerated to keep O2 sat at 92%. Overall prognosis is poor and a long run. DNR and DNI
[2016-08-08 16:21] VITALS: BP 112/62
[2016-08-08 18:45] VITALS: BP 134/76
[2016-08-08 21:51] VITALS: BP 154/86
[2016-08-09 06:56] VITALS: BP 138/70
[2016-08-09 08:51] LABS: PT 39.5 SEC (9.4-12.5)
--- NOTE | 2016-08-09 10:58 | NUR ---
CALLED TO ROOM BY PATIENT, C/O NAUSEA AND UPSET STOMACH FEELING. ALSO REPORTING PAIN IN BLE. NOTIFIED DR. PRADO AND CAME TO BEDSIDE TO EVALUATE PATIENT. ORDERED ZOFRAN AND SIMETHICONE. REMOVED ALPS AND PATIENT REPORTED IMMEDIATE DECREASE IN LEG PAIN. ZOFRAN GIVEN, VON SUMIT PROVIDED. WILL CONTINUE TO MONITOR PATIENT.
--- NOTE | 2016-08-09 12:19 | PN- Pulmonary ---
Subjective HPI/Critical Care Issues: Doing much better Continues to be short of breath Afebrile Bicarbonate is slightly rising white count 11.4 which is improved INR is elevated cultures so far unremarkable Objective Current Medications: Current Medications Sig/Saulo Start time Last Medication Dose Route Stop Time Status Admin Acetaminophen 650 MG Q4P PRN 08/08 1915 AC 08/09 PO 1134 Amlodipine Besylate 5 MG DAILY 08/05 1000 AC 08/09 PO 1133 Atorvastatin Calcium 20 MG DAILY@1700 08/05 1700 AC 08/08 PO 1547 Docusate Sodium 100 MG DAILY NEEDED PRN 08/05 1530 AC PO Escitalopram Oxalate 10 MG DAILY 08/05 1000 AC 08/09 PO 1133 Furosemide 60 MG BID 08/08 2200 AC 08/09 IV 1012 Furosemide 40 MG BID 08/05 1000 DC 08/08 IV 0940 Metoprolol Succinate 50 MG DAILY 08/05 1000 AC 08/09 PO 1133 Ondansetron HCl 4 MG ONCE ONE 08/09 1015 DC 08/09 IV 08/09 1016 1012 Oxybutynin Chloride 10 MG Q48 08/06 1000 AC 08/08 PO 0939 Patient Medication 1 UNIT ONE NR 08/08 1845 AK Teaching ED 08/08 1900 Polyethylene Glycol 17 GM DAILY PRN 08/04 1930 AC PO Potassium Chloride 40 MEQ BID 08/05 2200 AC 08/09 PO 1133 Senna 187 MG AT BEDTIME PRN 08/05 1530 AC PO Simethicone 40 MG ONCE ONE 08/09 1015 DC / PO 08/09 1016 1134 Warfarin Sodium 5 MG COUMADIN 1700 ONE 08/08 2345 DC 08/08 PO 08/08 2346 2353 Vital Signs & I&O Last 24 Hrs of Vitals and I&O: Vital Signs Date Time Temp Pulse Resp B/P Pulse O2 O2 Flow FiO2 Ox Delivery Rate 08/09 113 140/82 08/09 113 140/82 08/09 0800 Nasal 3.0L Cannula 08/09 0656 98.9 63 20 138/70 95 BIPAP 08/09 0043 57 96 /05 0000 CPAP 3.0L 08/08 2230 70 95 08/08 2151 99.2 64 20 154/86 96 Nasal 3.0L Cannula 08/08 2000 98.3 08/08 1914 0.0 08/08 1845 Nasal 3.0L Cannula 08/08 1845 98.3 68 20 134/76 96 Nasal 4.0L Cannula 08/08 1630 94 Nasal 3.0L Cannula 08/08 1621 98.7 68 17 112/62 92 Nasal 3.0L Cannula Intake & Output 08/09 1600 02 0800 02 0000 Intake Total 100 480 Output Total 950 526 Balance -950 100 -46 Intake, Oral 100 480 Number 1 1 Bowel Movements Output, Stool 1 Output, Urine 950 525 Laboratory Tests 08/09 08/08 0750 0600 Chemistry Sodium (137 - 145 mmol/L) 140 143 Potassium (3.5 - 5.1 mmol/L) 4.8 4.9 Chloride (98 - 107 mmol/L) 96 L 97 L Carbon Dioxide (22 - 30 mmol/L) 37 H 35 H Anion Gap (5 - 16) 7 11 BUN (7 - 17 mg/dL) 15 15 Creatinine (0.5 - 1.0 mg/dL) 0.8 0.7 Estimated GFR (>60 ml/min) > 60 > 60 BUN/Creatinine Ratio (7 - 25 %) 18.8 21.4 Total Bilirubin (0.2 - 1.3 mg/dL) 1.5 H Direct Bilirubin (< 0.4 mg/dL) 0.6 H AST (14 - 36 U/L) 30 ALT (9 - 52 U/L) 32 Alkaline Phosphatase (<127 U/L) 117 Total Protein (6.3 - 8.2 g/dL) 7.1 Albumin (3.5 - 5.0 g/dL) 3.9 Coagulation PT (9.4 - 12.5 SEC) 39.5 H 23.1 H INR (0.90 - 1.19) 3.81 H 2.22 H Hematology CBC w Diff NO MAN DIFF REQ WBC (4.8 - 10.8 /CUMM) 11.4 H RBC (4.20 - 5.40 /CUMM) 3.97 L Hgb (12.0 - 16.0 G/DL) 11.2 L Hct (37 - 47 %) 34.8 L MCV (81.0 - 99.0 FL) 87.7 MCH (27.0 - 31.0 PG) 28.2 RDW (11.5 - 14.5 %) 19.1 H Plt Count (130 - 400 /CUMM) 397 MPV (7.4 - 10.4 FL) 9.5 Gran % (42.2 - 75.2 %) 82.0 H Lymphocytes % (20.5 - 51.1 %) 5.6 L Monocytes % (1.7 - 9.3 %) 7.5 Eosinophils % (0 - 5 %) 4.3 Basophils % (0.0 - 2.0 %) 0.6 Absolute Granulocytes (1.4 - 6.5 /CUMM) 9.4 H Absolute Lymphocytes (1.2 - 3.4 /CUMM) 0.6 L Absolute Monocytes (0.10 - 0.60 /CUMM) 0.9 H Absolute Eosinophils (0.0 - 0.7 /CUMM) 0.5 Absolute Basophils (0.0 - 0.2 /CUMM) 0.1 PUBS MCHC (33.0 - 37.0 G/DL) 32.2 L Microbiology Date/Time Procedure - Status Source Growth 08/06 1555 Clostridium difficile Toxin A & B - COMP STOOL Impression/Plan Impression/Plan Impression/Plan: IMPRESSION: 1. Markedly limited evaluation, as detailed above. No central pulmonary embolus identified. 2. Patchy bilateral lung consolidations combined with interstitial prominence and small bilateral pleural effusions in the setting of cardiomegaly. The constellation of these findings is most consistent with congestive heart failure exacerbation, although a superimposed infectious process is not excluded. 3. Reflux of contrast into the hepatic veins is most suggestive of right heart dysfunction. 4. Mediastinal lymphadenopathy, increased since the prior study. 5. Other nonacute findings, as above. Physical Exam General Appearance Alert, Oriented X3, Cooperative, No Acute Distress Skin No Rashes, No Breakdown, No Significant Lesion HEENT Atraumatic, PERRLA, EOMI, Mucous Membr. moist/pink Neck Supple Cardiovascular irrigular irrigular Lungs decrease air entery, expiratory wheeze Abdomen Normal Bowel Sounds, Soft, mild tenderness all over Neurological Normal Speech, Strength at 5/5 X4 Ext, Normal Tone, Sensation Intact, Cranial Nerves 3-12 NL, Reflexes 2+ Extremities No Clubbing, No Cyanosis, bilateral lower extermity chronic erthyma, trace edemma Vascular Normal Pulses IMPRESSION This is a lady with significant obstructive sleep apnea and central apnea, compliant with CPAP, chronic atrial fibrillation on warfarin, previous aortic replacement with bioprosthetic valve, now has moderate to severe aortic stenosis , mild mitral stenosis and regurgitation (noted in the recent echocardiogram done at [facility]), chronic hypercarbic respiratory failure, severe pulmonary hypertension related to valvular heart disease and her sleep apnea with chronic hepatic congestion, Chronic cor pulmonale, significant chronic lung disease with both obstructive restrictive pulmonary physiology, 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 difficile colitis, now comes in with * Resolving Acute hypoxemic and hypercarbic respiratory failure related to acute systolic heart failure due to significant valvular heart disease and diastolic dysfunction. Pt has severe , MS * Chronic hypercarbia related to obesity hypoventilation syndrome with sleep apnea and central apnea, Compliant on bedtime CPAP. * Severe pulmonary hypertension with congested liver with high INR, high bilirubin related to severe pulmonary hypertension from valvular heart disease and sleep apnea. * Severe restrictive and obstructive lung disease with poor pulmonary reserve with recurrent Pseudomonas infection in the past with no active evidence of infection. * Chronic atrial fibrillation on warfarin now with supratherapeutic INR, probably related to right heart dysfunction with congested liver * Chronic cor pulmonale due to obstructive restrictive lung disease and from pulmonary hypertension with right heart failure with lower extremity edema and congested liver. * Recent Pseudomonas UTI and C. difficile. RECOMMENDATION * Continue diuresis. Keep potassium more than 4 * Keep the potassium more than 4 to prevent hypercarbia and hypochloremia. * Continue CPAP at bedtime and if tolerated in the afternoon if she needs it. * Use as needed nebulizer therapy for wheezing. * Keep the head of bed elevated. * Keep O2 sats around 91-92% to prevent further hypercarbia. Reduce oxygen if tolerated to keep O2 sat at 92%. Overall prognosis is poor and a long run. DNR and DNI
[2016-08-09 14:00] VITALS: BP 122/60
--- NOTE | 2016-08-09 15:44 | PN- Att Addend ---
Attending Addendum Attending Brief Note Mrs. Hooker was revisited with family members present. She offers no complaints today. She is afebrile with stable vital signs. She continues in negative fluid balance. He has fine bibasilar rales on pulmonary examination. Cardiovascular exam reveals a regular rhythm with a 3/6 systolic ejection murmur best heard at the base. Review of her laboratory determinations reveals them to be satisfactory. We should continue intravenous diuretics with careful attention to her renal function and potassium levels. Other modalities should be continued. Patient expressed the desire to be out of bed so an attempt should be made to increase her activity.
[2016-08-09 22:40] VITALS: BP 122/70
[2016-08-10 05:17] VITALS: BP 128/70
--- NOTE | 2016-08-10 07:12 | PN- Housestaff ---
Assessment/Plan Assessment: Mrs. Hooker is a 85-year-old female with past medical history significant for hypertension, Afib on coumadin, aortic valve(bioprosthetic), obstructive sleep apnea on CPAP, chronic LE edema on lasix, pulmonary HTN, recent history of fall and fracture of left hip and multiple ribs, BIBA from assisted living facility ( [facility]) with CC of SOB and weaknes. CTA 1. Markedly limited evaluation, as detailed above. No central pulmonary embolus identified. 2. Patchy bilateral lung consolidations combined with interstitial prominence and small bilateral pleural effusions in the setting of cardiomegaly. The constellation of these findings is most consistent with congestive heart failure exacerbation, although a superimposed infectious process is not excluded. 3. Reflux of contrast into the hepatic veins is most suggestive of right heart dysfunction. 4. Mediastinal lymphadenopathy, increased since the prior study. 5. Other nonacute findings, as above. Chest x-ray IMPRESSION: There is cardiomegaly and increased interstitial markings with prominent central pulmonary vasculature, consistent with congestive heart failure. Underlying consolidation at the left base cannot be excluded. ECHO Moderate concentric left ventricular hypertrophy. Normal left ventricular ejection fraction visually estimated at >65 No obvious regional wall motion abnormalities. The right ventricle is mildly dilated. The right atrium is mildly dilated. Moderate left atrial dilatation. There is moderate thickening/calcification of the mitral valve leaflets with somewhat reduced opening. There is probably mild mitral stenosis by gradient. There is moderate to marked calcification of mitral annulus posteriorly. There is also calcification of the chordal apparatus. There is mild mitral regurgitation. There is a bioprosthetic aortic valve. The leaflets are heavily calcified and the opening is at least moderately restricted. There is severe aortic stenosis by gradient. Mild aortic regurgitation. Right ventricular systolic pressure estimated to be elevated at >75 mmHg. Severe pulmonary hypertension. Assessment and plan - * Patient is transferred to the general medical floors * We increase the Lasix to 60 milligram IV BID, as suggested by Dr. De Jesus * We will also check the BUN and creatinine tomorrow * Keep oxygen saturation above 92% * TRC * Continue CPAP at bedtime and when necessary * Keep bed head elevated, aspiration precaution * Lasix 40 mg twice a day * Strict intake and output charting * We will does warfarin according to PT/INR * Continue home medication * Diet-heart healthy diet * DVT prophylaxis-ALP S/Warfarin * CODE STATUS-DNR/DNI
[2016-08-10 08:07] LABS: ABSOLUTE BASOPHIL COUNT 0 /CUMM (0.0-0.2); ABSOLUTE EOSINOPHIL COUNT 0.7 /CUMM (0.0-0.7); ABSOLUTE GRANULOCYTE CT 10.2 /CUMM (1.4-6.5); ABSOLUTE LYMPH COUNT 0.8 /CUMM (1.2-3.4); ABSOLUTE MONOCYTE COUNT 1.1 /CUMM (0.10-0.60); BASOPHIL % 0.2 % (0.0-2.0); EOSINOPHIL % 5.2 % (0-5); GRANULOCYTE % 80.2 % (42.2-75.2); HEMATOCRIT 37.5 % (37-47); MEAN CORPUSCULAR VOLUME 87.6 FL (81.0-99.0); MEAN PLATELET VOLUME 9.5 FL (7.4-10.4); PLATELET COUNT 454 /CUMM (130-400); RBC DISTRIBUTION WIDTH 19.8 % (11.5-14.5); RED BLOOD CELL CT 4.28 /CUMM (4.20-5.40); WHITE BLOOD CELL COUNT 12.7 /CUMM (4.8-10.8)
--- NOTE | 2016-08-10 08:11 | Transfer of Care Summary ---
Hospital Course Course Hospital Course: Mrs. Hooker is a 85-year-old female with past medical history significant for hypertension, Afib on coumadin, aortic valve(bioprosthetic), obstructive sleep apnea on CPAP, on home oxygen 6L, chronic LE edema on lasix, pulmonary HTN, recent history of fall and fracture of left hip and multiple ribs, BIBA from assisted living facility ([facility]) with CC of SOB and weakness. Per family , patient is bed bound, started to have physical therapy 1 week before admission , consequently she started to complain of shortness of breath that reached maximum on day of admission. Because of the patient's baseline dementia, most of the history and the communication was done through family (daughter). On admission Vital signs temperature 98.1, MAXIMUM TEMPERATURE 99.2, pulse 89, blood pressure 157/74, respiration 18 with saturation 97% on nonrebreather mask Lab WBC 16, H/H 11.2/35, plat 456, NA 143, K 3.3, MG 1.8, BUN 11, Cr 0.5, Lactic acid 1<1.2, Alkaline ph 140, PBNP 5850 , troponin 0.04 PH 7.42, PCO2 46, PaO2 92, bicarbonate 30 CTA 1. Markedly limited evaluation, as detailed above. No central pulmonary embolus identified. 2. Patchy bilateral lung consolidations combined with interstitial prominence and small bilateral pleural effusions in the setting of cardiomegaly. The constellation of these findings is most consistent with congestive heart failure exacerbation, although a superimposed infectious process is not excluded. 3. Reflux of contrast into the hepatic veins is most suggestive of right heart dysfunction. 4. Mediastinal lymphadenopathy, increased since the prior study. 5. Other nonacute findings, as above. Chest x-ray 08/04 There is cardiomegaly and increased interstitial markings with prominent central pulmonary vasculature, consistent with congestive heart failure. Underlying consolidation at the left base cannot be excluded. Chest x-ray / Persistent enlargement of the cardiac silhouette with probable bilateral subsegmental atelectasis. Pneumonia cannot be excluded. There is no definite congestion. ECHO Moderate concentric left ventricular hypertrophy. Normal left ventricular ejection fraction visually estimated at >65 No obvious regional wall motion abnormalities. The right ventricle is mildly dilated. The right atrium is mildly dilated. Moderate left atrial dilatation. There is moderate thickening/calcification of the mitral valve leaflets with somewhat reduced opening. There is probably mild mitral stenosis by gradient. There is moderate to marked calcification of mitral annulus posteriorly. There is also calcification of the chordal apparatus. There is mild mitral regurgitation. There is a bioprosthetic aortic valve. The leaflets are heavily calcified and the opening is at least moderately restricted. There is severe aortic stenosis by gradient. Mild aortic regurgitation. Right ventricular systolic pressure estimated to be elevated at >75 mmHg. Severe pulmonary hypertension. Problem list #Hypercapnia due to sleep obstructive apnea/acute exacerbation congestive heart failure/possible pneumonia -Patient's symptoms improved with diuresis which support the theory of symptoms attributed to acute exacerbation congestive heart failure instead of pneumonia -Continue hold off antibiotics -Keep oxygen saturation above 92% -TRC -Pulmonary consultation was placed, thank you for recommendation -Keep the potassium more than 4 and magnesium more than 2 -Continue potassium supplementation to 40 MG twice a day -Continue CPAP at bedtime and when necessary -Keep bed head elevated, aspiration precaution #Acute exacerbation congestive heart failure -Cardiology consultation for acute CHF exacerbation -Increase Lasix to 60 mg twice a day -Strict in and out negative today -Dose warfarin today 5 mg -INR increased from 4.032 6.25, patient met the criteria for vitamin K supplementation given the INR value and history of bleeding (recent history of hip fracture and rib fracture), 1 dose of vitamin K was given -Troponin continued to be flat 0.06 and EKG -Continue home medication #Chronic abdominal pain -Patient had a compalint of abdominl pain, mild tenderness diffuse on palpation, 3 episode of watery diarrhea, C Diff negative -Patient's family mentioned that patient used to have chronic abdominal pain with frequent evaluation last one was last week at [facility], [place] abdomen was obtained on 07/22/16 showed colonic dilatation is improved, no finding suggest mechanical bowel obstruction, there is minimal cranial fluid in the pelvis of uncertain etiology. -total bilirubin 1.6<1.8<2.4 improving -Direct bilirubin 0.5<0.6 -AST and ALT within normal -Alkaline phosphatase within normal -Hemoglobin is stable, LDH elevated could be because of congestive heart failure with hepatic congestion -Guaiac stool -CTA 08/04/16 UPPER ABDOMEN: Reflux of contrast into the hepatic veins. Vascular calcifications. Gaseous distention of the partially visualized bowel, better appreciated on the scanogram. Code DNR/DNI Of note patient was full code at [facility] DVT prophylaxis warfarin Diet heart healthy diet Consultation cardiology and pulmonology Assessment/Plan: Please see above
--- NOTE | 2016-08-10 09:04 | PN- Housestaff ---
Subjective Follow-up For: - CHF exacerbation Subjective: Comfortable this morning. Vitals remained stable. Overnight she remained afebrile. Review of Systems Constitutional: Reports: see HPI. Objective Last 24 Hrs of Vital Signs/I&O Vital Signs Date Time Temp Pulse Resp B/P Pulse O2 O2 Flow FiO2 Ox Delivery Rate 08/10 05 97.9 71 20 128/70 94 Nasal 3.0L Cannula 08/10 0429 71 92 08/10 0153 87 89 08/10 0000 CPAP 08/09 2240 98.5 78 20 122/70 93 08/09 1600 Nasal 3.0L Cannula 08/09 1400 98.7 70 20 122/60 94 Nasal 3.0L Cannula 08/09 1133 140/82 08/09 1133 140/82 Intake & Output 08/10 1600 08/10 0800 08/10 0000 Intake Total 600 Output Total 1400 400 Balance -1400 200 Intake, Oral 600 Number 1 Bowel Movements Output, Urine 1400 400 Physical Exam General Appearance: No Acute Distress Other Physical Findings: General Exam: AAOx3, No acute distress, Skin: No rashes, no breakdown HEENT: PERRLA, EOMI Neck: Supple, No JVD No cervical lymphadenopathy CVS: Reg Rate, Normal S1,S2, No MGR Resp: Normal air entry, no ronchi/rales Abdomen: Soft, No tenderness, Normal Bowel Sounds Neuro: Normal Speech, Strength 5/5 b/l x 4 extremities, Sensation intact, CN III -XII NL, Reflexes 2+ Extremities: No cyanosis, No pedal edema Current Medications: Current Medications Sig/Saulo Start time Last Medication Dose Route Stop Time Status Admin Acetaminophen 650 MG .STK-MED ONE 08/09 1545 DC PO 08/09 1546 Acetaminophen 650 MG Q4P PRN 08/08 1915 AC 08/09 PO 1548 Amlodipine Besylate 5 MG DAILY 08/05 1000 AC 08/09 PO 1133 Atorvastatin Calcium 20 MG DAILY@1700 08/05 1700 AC 08/09 PO 1548 Docusate Sodium 100 MG DAILY NEEDED PRN 08/05 1530 AC PO Escitalopram Oxalate 10 MG DAILY 08/05 1000 AC 08/09 PO 1133 Furosemide 60 MG BID 08/08 2200 AC 08/09 IV 2059 Metoprolol Succinate 50 MG DAILY 08/05 1000 AC 08/09 PO 1133 Ondansetron HCl 4 MG ONCE ONE 08/09 1015 DC 08/09 IV 08/09 1016 1012 Oxybutynin Chloride 10 MG Q48 08/06 1000 AC 08/08 PO 0939 Polyethylene Glycol 17 GM DAILY PRN 08/04 1930 AC PO Potassium Chloride 40 MEQ BID 08/05 2200 AC 08/09 PO 2100 Senna 187 MG AT BEDTIME PRN 08/05 1530 AC PO Simethicone 40 MG ONCE ONE 08/09 1015 DC 08/09 PO 08/09 1016 1134 Last 24 Hrs of Lab/Noel Results Last 24 Hrs of Labs/Mics: Laboratory Tests 08/10/16 0617: Anion Gap 8, Estimated GFR 59 L, BUN/Creatinine Ratio 18.9, PT 52.0 *H, INR 5.03 *H, CBC w Diff NO MAN DIFF REQ, RBC 4.28, MCV 87.6, MCH 28.0, RDW 19.8 H, MPV 9.5, Gran % 80.2 H, Lymphocytes % 6.0 L, Monocytes % 8.4, Eosinophils % 5.2 H, Basophils % 0.2, Absolute Granulocytes 10.2 H, Absolute Lymphocytes 0.8 L, Absolute Monocytes 1.1 H, Absolute Eosinophils 0.7, Absolute Basophils 0, PUBS MCHC 32.0 L Assessment/Plan Assessment: Mrs. Hooker is a 85-year-old female with past medical history significant for hypertension, Afib on coumadin, aortic valve(bioprosthetic), obstructive sleep apnea on CPAP, chronic LE edema on lasix, pulmonary HTN, recent history of fall and fracture of left hip and multiple ribs, BIBA from assisted living facility ( [facility]) with CC of SOB and weaknes. CTA 1. Markedly limited evaluation, as detailed above. No central pulmonary embolus identified. 2. Patchy bilateral lung consolidations combined with interstitial prominence and small bilateral pleural effusions in the setting of cardiomegaly. The constellation of these findings is most consistent with congestive heart failure exacerbation, although a superimposed infectious process is not excluded. 3. Reflux of contrast into the hepatic veins is most suggestive of right heart dysfunction. 4. Mediastinal lymphadenopathy, increased since the prior study. 5. Other nonacute findings, as above. Chest x-ray IMPRESSION: There is cardiomegaly and increased interstitial markings with prominent central pulmonary vasculature, consistent with congestive heart failure. Underlying consolidation at the left base cannot be excluded. ECHO Moderate concentric left ventricular hypertrophy. Normal left ventricular ejection fraction visually estimated at >65 No obvious regional wall motion abnormalities. The right ventricle is mildly dilated. The right atrium is mildly dilated. Moderate left atrial dilatation. There is moderate thickening/calcification of the mitral valve leaflets with somewhat reduced opening. There is probably mild mitral stenosis by gradient. There is moderate to marked calcification of mitral annulus posteriorly. There is also calcification of the chordal apparatus. There is mild mitral regurgitation. There is a bioprosthetic aortic valve. The leaflets are heavily calcified and the opening is at least moderately restricted. There is severe aortic stenosis by gradient. Mild aortic regurgitation. Right ventricular systolic pressure estimated to be elevated at >75 mmHg. Severe pulmonary hypertension. Assessment and plan - * Patient is transferred to the general medical floors * Change iv lasix to PO lasix 60mg BID. * Check the BUN and creatinine tomorrow * Keep oxygen saturation above 92% * TRC * Continue CPAP at bedtime and when necessary * Keep bed head elevated, aspiration precaution * Strict intake and output charting. * Hold Warfarin today. INR 5.03 * Continue home medication * Diet-heart healthy diet * DVT prophylaxis-ALP S/Warfarin * CODE STATUS-DNR/DNI Problem List: 1. Atrial fibrillation 2. CHF (congestive heart failure) Pain Ratin Pain Location: none Pain Goal: Pain 4 or less Pain Plan: Tylenol when necessary Tomorrow's Labs & Rationales: Basic electrolyte panel-to monitor for serum creatinine. Patient on high-dose of Lasix Discharge Plan Discharge Disposition: STR/NH Stable for Discharge? No Anticipated Discharge (Day): tomorrow
--- NOTE | 2016-08-10 09:37 | PN- Att Addend ---
Attending Addendum Attending Brief Note Patient reports improved respiratory symptoms this morning General Appearance: Alert, No Acute Distress Skin: Grossly normal HEENT: PEERLA Neck: Supple, No JVD Cardiovascular: Regular Rate, Normal S1, Normal S2, No Murmurs Lungs: Decreased air entry all lung cerrato, right basilar crackles Abdomen: Normal Bowel Sounds, Soft, No Tenderness Neurological: Normal Speech, Strength at 5/5 X4 Ext, Cranial Nerves 3-12 NL, Reflexes 2+ Extremities: 1+ pedal edema Vascular: Normal Pulses Assessment 85-year-old female with history of hypertension, atrial fibrillation on Coumadin , aortic valve replacement, central apnea on CPAP, chronic lower extremity edema presenting with acute respiratory distress. CTA negative for VTE however there is suggestion of bilateral opacifications with interstitial edema. her respiratory symptoms are secondary to fluid overload. Echo shows severe aortic stenosis and pulmonary hypertension with preserved ejection fraction. We will transition patient to oral Lasix and she is already about 10 L negative. Plan Discuss with cardiology and transition to oral Lasix Check I's and O's and daily weights hold Coumadin for supratherapeutic INR Continue CPAP at bedtime DNI/DNR May discharge patient to short-term rehabilitation Current Medications Sig/Saulo Start time Last Medication Dose Route Stop Time Status Admin Acetaminophen 650 MG .STK-MED ONE 08/09 1545 DC PO 08/09 1546 Acetaminophen 650 MG Q4P PRN 08/08 1915 AC 08/09 PO 1548 Amlodipine Besylate 5 MG DAILY 08/05 1000 AC 08/10 PO 0929 Atorvastatin Calcium 20 MG DAILY@1700 08/05 1700 AC 08/09 PO 1548 Docusate Sodium 100 MG DAILY NEEDED PRN 08/05 1530 AC PO Escitalopram Oxalate 10 MG DAILY 08/05 1000 AC 08/10 PO 0929 Furosemide 60 MG BID 08/08 2200 AC 08/10 IV 0929 Metoprolol Succinate 50 MG DAILY 08/05 1000 AC 08/10 PO 0929 Ondansetron HCl 4 MG ONCE ONE 08/09 1015 DC / IV 08/09 1016 1012 Oxybutynin Chloride 10 MG Q48 08/06 1000 AC 08/10 PO 0930 Polyethylene Glycol 17 GM DAILY PRN 08/04 1930 AC PO Potassium Chloride 40 MEQ BID 08/05 2200 AC 08/10 PO 0930 Senna 187 MG AT BEDTIME PRN 08/05 1530 AC PO Simethicone 40 MG ONCE ONE 08/09 1015 DC 08/09 PO 08/09 1016 1134 Laboratory Tests 08/10 0617 Chemistry Sodium (137 - 145 mmol/L) 141 Potassium (3.5 - 5.1 mmol/L) 4.7 Chloride (98 - 107 mmol/L) 95 L Carbon Dioxide (22 - 30 mmol/L) 38 H Anion Gap (5 - 16) 8 BUN (7 - 17 mg/dL) 17 Creatinine (0.5 - 1.0 mg/dL) 0.9 Estimated GFR (>60 ml/min) 59 L BUN/Creatinine Ratio (7 - 25 %) 18.9 Coagulation PT (9.4 - 12.5 SEC) 52.0 *H INR (0.90 - 1.19) 5.03 *H Hematology CBC w Diff NO MAN DIFF REQ WBC (4.8 - 10.8 /CUMM) 12.7 H RBC (4.20 - 5.40 /CUMM) 4.28 Hgb (12.0 - 16.0 G/DL) 12.0 Hct (37 - 47 %) 37.5 MCV (81.0 - 99.0 FL) 87.6 MCH (27.0 - 31.0 PG) 28.0 RDW (11.5 - 14.5 %) 19.8 H Plt Count (130 - 400 /CUMM) 454 H MPV (7.4 - 10.4 FL) 9.5 Gran % (42.2 - 75.2 %) 80.2 H Lymphocytes % (20.5 - 51.1 %) 6.0 L Monocytes % (1.7 - 9.3 %) 8.4 Eosinophils % (0 - 5 %) 5.2 H Basophils % (0.0 - 2.0 %) 0.2 Absolute Granulocytes (1.4 - 6.5 /CUMM) 10.2 H Absolute Lymphocytes (1.2 - 3.4 /CUMM) 0.8 L Absolute Monocytes (0.10 - 0.60 /CUMM) 1.1 H Absolute Eosinophils (0.0 - 0.7 /CUMM) 0.7 Absolute Basophils (0.0 - 0.2 /CUMM) 0 PUBS MCHC (33.0 - 37.0 G/DL) 32.0 L Vital Signs Date Time Temp Pulse Resp B/P Pulse O2 O2 Flow FiO2 Ox Delivery Rate 08/10 928 71 128/70 08/10 0929 71 128/70 08/10 0517 97.9 71 20 128/70 94 Nasal 3.0L Cannula 08/10 0429 71 92 08/10 0153 87 89 08/10 0000 CPAP 08/09 2240 98.5 78 20 122/70 93 02/05 1600 Nasal 3.0L Cannula 08/09 1400 98.7 70 20 122/60 94 Nasal 3.0L Cannula 08/09 1133 140/82 02 1133 140/82
--- NOTE | 2016-08-10 13:31 | PN- Pulmonary ---
Subjective HPI/Critical Care Issues: Better Afebrile vss Objective Current Medications: Current Medications Sig/Saulo Start time Last Medication Dose Route Stop Time Status Admin Acetaminophen 650 MG .STK-MED ONE 08/09 1545 DC PO 08/09 1546 Acetaminophen 650 MG Q4P PRN 08/08 1915 AC 08/09 PO 1548 Amlodipine Besylate 5 MG DAILY 08/05 1000 AC 08/10 PO 0929 Atorvastatin Calcium 20 MG DAILY@1700 08/05 1700 AC 08/09 PO 1548 Docusate Sodium 100 MG DAILY NEEDED PRN 08/05 1530 AC PO Escitalopram Oxalate 10 MG DAILY 08/05 1000 AC 08/10 PO 0929 Furosemide 60 MG BID 08/10 220 AC PO Furosemide 60 MG BID 08/08 220 DC 08/10 IV 0929 Metoprolol Succinate 50 MG DAILY 08/05 1000 AC 08/10 PO 0929 Oxybutynin Chloride 10 MG Q48 08/06 1000 AC 08/10 PO 0930 Patient Medication 1 UNIT 0 08/10 2199 AC Teaching ED 08/10 2200 Polyethylene Glycol 17 GM DAILY PRN 08/04 193 AC PO Potassium Chloride 40 MEQ BID 08/05 220 AC 08/10 PO 0930 Senna 187 MG AT BEDTIME PRN 08/05 1530 AC PO Vital Signs & I&O Last 24 Hrs of Vitals and I&O: Vital Signs Date Time Temp Pulse Resp B/P Pulse O2 O2 Flow FiO2 Ox Delivery Rate 08/10 928 71 128/70 08/10 09 71 128/70 08/10 08 Nasal 3.0L Cannula 08/10 0517 97.9 71 20 128/70 94 Nasal 3.0L Cannula 08/10 0429 71 92 08/10 0153 87 89 08/10 0000 CPAP 08/09 2240 98.5 78 20 122/70 93 08/09 1600 Nasal 3.0L Cannula 08/09 1400 98.7 70 20 122/60 94 Nasal 3.0L Cannula Intake & Output 08/10 1600 08/10 0800 08/10 0000 Intake Total 600 Output Total 600 1400 400 Balance -600 -1400 200 Intake, Oral 600 Number 1 1 Bowel Movements Output, Urine 600 1400 400 Impression/Plan Impression/Plan Impression/Plan: IMPRESSION: 1. Markedly limited evaluation, as detailed above. No central pulmonary embolus identified. 2. Patchy bilateral lung consolidations combined with interstitial prominence and small bilateral pleural effusions in the setting of cardiomegaly. The constellation of these findings is most consistent with congestive heart failure exacerbation, although a superimposed infectious process is not excluded. 3. Reflux of contrast into the hepatic veins is most suggestive of right heart dysfunction. 4. Mediastinal lymphadenopathy, increased since the prior study. 5. Other nonacute findings, as above. Physical Exam General Appearance Alert, Oriented X3, Cooperative, No Acute Distress Skin No Rashes, No Breakdown, No Significant Lesion HEENT Atraumatic, PERRLA, EOMI, Mucous Membr. moist/pink Neck Supple Cardiovascular irrigular irrigular Lungs decrease air entery, expiratory wheeze Abdomen Normal Bowel Sounds, Soft, mild tenderness all over Neurological Normal Speech, Strength at 5/5 X4 Ext, Normal Tone, Sensation Intact, Cranial Nerves 3-12 NL, Reflexes 2+ Extremities No Clubbing, No Cyanosis, bilateral lower extermity chronic erthyma, trace edemma Vascular Normal Pulses IMPRESSION This is a lady with significant obstructive sleep apnea and central apnea, compliant with CPAP, chronic atrial fibrillation on warfarin, previous aortic replacement with bioprosthetic valve, now has moderate to severe aortic stenosis , mild mitral stenosis and regurgitation (noted in the recent echocardiogram done at [facility]), chronic hypercarbic respiratory failure, severe pulmonary hypertension related to valvular heart disease and her sleep apnea with chronic hepatic congestion, Chronic cor pulmonale, significant chronic lung disease with both obstructive restrictive pulmonary physiology, 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 difficile colitis, now comes in with * Resolved Acute hypoxemic and hypercarbic respiratory failure related to acute systolic heart failure due to significant valvular heart disease and diastolic dysfunction. Pt has severe , MS * Chronic hypercarbia related to obesity hypoventilation syndrome with sleep apnea and central apnea, Compliant on bedtime CPAP. * Severe pulmonary hypertension with congested liver with high INR, high bilirubin related to severe pulmonary hypertension from valvular heart disease and sleep apnea. * Severe restrictive and obstructive lung disease with poor pulmonary reserve with recurrent Pseudomonas infection in the past with no active evidence of infection. * Chronic atrial fibrillation on warfarin now with supratherapeutic INR, probably related to right heart dysfunction with congested liver * Chronic cor pulmonale due to obstructive restrictive lung disease and from pulmonary hypertension with right heart failure with lower extremity edema and congested liver. * Recent Pseudomonas UTI and C. difficile. RECOMMENDATION * Continue diuresis. Keep potassium more than 4 * Keep the potassium more than 4 to prevent hypercarbia and hypochloremia. * Continue CPAP at bedtime and if tolerated in the afternoon if she needs it. * Use as needed nebulizer therapy for wheezing. * Keep the head of bed elevated. * Keep O2 sats around 91-92% to prevent further hypercarbia. Reduce oxygen if tolerated to keep O2 sat at 92%. Ok to dc Overall prognosis is poor and a long run. DNR and DNI
[2016-08-10 13:51] VITALS: BP 118/90
[2016-08-10 22:30] VITALS: BP 120/90
--- NOTE | 2016-08-10 23:27 | Patient Discharge Instructions ---
Discharge Instructions General Discharge Information You were seen/treated for: Acute hypoxemic hypercarbic respiratory failure 2/2 acute Lt. & Rt. congestive heart failure Special Instructions: 1. Please hold coumadin on 08/11. Please check INR on 08/12 and dose coumadin accordingly. 2. Please see your PCP within one week of discharge. 3. Please follow up with your mechanical assembly technician within one week of discharge. 4. Please keep head of bed elevated 5. Please conitnue CPAP at bedtime 6. Please continue physical therapy Diet Continue normal diet: Yes Recommended Diet: Heart Healthy Activity Full Activity/No Limits: No Activity Self Limited: Yes Activity Limited to: Walking with Assistance Other activity limits: Increase activity as tolerated Keep the head of bed elevated Acute Coronary Syndrome Inclusion Criteria At DC or during hospital stay patient has or had the following: ACS DIAGNOSIS No Discharge Core Measures Meds if any: Prescribed or Continued at Discharge Meds if any: NOT Prescribed or Continued at Discharge Congestive Heart Failure Inclusion Criteria At DC or during hospital stay patient has or had the following: CHF DIAGNOSIS Yes Discharge Core Measures Meds if any: Prescribed or Continued at Discharge ELIUD/ARB for EF <40% Yes Meds if any: NOT Prescribed or Continued at Discharge Cerebrovascular accident Inclusion Criteria At DC or during hospital stay patient has or had the following: CVA/TIA Diagnosis No Discharge Core Measures Meds if any: Prescribed or Continued at Discharge Meds if any: NOT Prescribed or Continued at Discharge Venous thromboembolism Inclusion Criteria VTE Diagnosis No VTE Type NONE VTE Confirmed by (Test) NONE Discharge Core Measures - Per Current guidelines, there needs to be overlap - treatment for the first 5 days of Warfarin therapy. - If discharged on Warfarin prior to 5 days of - overlap therapy, the patient will need to be - assessed for post discharge needs including - *Post discharge parental anticoagulation - *Warfarin and/or parental anticoagulation education - *Follow up date to check INR post discharge At least 5 days overlap therapy as Inpatient No Meds if any: Prescribed or Continued at Discharge Note: Overlap Therapy is Warfarin and Anticoagulant Meds if any: NOT Prescribed or Continued at Discharge
--- NOTE | 2016-08-10 23:29 | Discharge Summary ---
Visit Information Visit Dates Admission Date: 08/04/16 Discharge Date: 08/11/16 Hospital Course Course Attending Physician: CAMRYN GROVER MD Primary Care Physician: MEKA VASQUEZ,MELANI Orr Consulting Request: 1 Consulting Specialty: Cardiology Consulting Physician: Dr. Churchill Reason for Consult: Acute exacerbation of CHF Consulting Request: 2 Consulting Specialty: Pulmonary Disease Consulting Physician: Dr. Freitas Reason for Consult: Acute hypoxemic/hypercarbic resp.failure Hospital Course: 85-year-old female with pmh of hypertension, Afib on coumadin, S/P aortic valve replacement with bioprosthetic valve, obstructive sleep apnea & central apnea on CPAP and 2L of oxygen due to chronic respiratory failure, chronic LE edema, pulmonary hypertension, dementia BIBA from [facility]) with a chief complaint of worsening dyspnea and LE edema. She had recent Lt. hip fracture / surgery at [facility], and she was discharged to rehabilitation facility. According to family, patient was not feeling well from couple of days and her oxygen requirement went up from baseline 2 L to 4 L at times when she desaturated to 80s. She had mildly productive cough without any evidence of fever, chills, nausea, vomiting, any urinary or bowel complaints. Initial V/S: temperature 98.1F (MAX: 99.2), pulse rate 89, respiration rate 18, blood pressure 157/74, with saturation 97% on nonrebreather mask On exam, General Appearance Alert, Oriented X3, Cooperative, No Acute Distress, Skin No Rashes, No Breakdown, No Significant Lesion, HEENT Atraumatic, PERRLA, EOMI, Mucous Membr. moist/pink Neck Supple, Cardiovascular irrigular irrigular, Lungs decrease air entery, expiratory wheeze, Abdomen Normal Bowel Sounds, Soft, No Tenderness, Neurological Normal Speech, Strength at 5/5 X4 Ext, Normal Tone, Sensation Intact, Cranial Nerves 3-12 NL, Reflexes 2+, Extremities No Clubbing, No Cyanosis, bilateral lower extermity chronic erythema, trace edemma, Vascular Normal Pulses Lab: WBC 16, Hb/Hct 11.2/35, Plt 456, NA 143, K 3.3, MG 1.8, BUN 11, Cr 0.5, Lactic acid 1<1.2, Alkaline ph 140, PBNP 5850 , troponin 0.04, ABGA: PH 7.42, PCO2 46, PaO2 92, bicarbonate 30 CTA 08/04/16 1. Markedly limited evaluation, as detailed above. No central pulmonary embolus identified. 2. Patchy bilateral lung consolidations combined with interstitial prominence and small bilateral pleural effusions in the setting of cardiomegaly. The constellation of these findings is most consistent with congestive heart failure exacerbation, although a superimposed infectious process is not excluded. 3. Reflux of contrast into the hepatic veins is most suggestive of right heart dysfunction. 4. Mediastinal lymphadenopathy, increased since the prior study. 5. Other nonacute findings, as above. Chest x-ray 08/04 There is cardiomegaly and increased interstitial markings with prominent central pulmonary vasculature, consistent with congestive heart failure. Underlying consolidation at the left base cannot be excluded. Patient was admitted to telemetry floor on 08/04-08/09 and transferred to on 08/10 ; 1. Acute hypoxemic and hypercarbic respiratory failure: likely secondary to acute Lt & Rt. congestive heart failure. Pulmonary and cardiology consults were obtained. Patient's symptoms improved with aggressive IV diuresis. I/Os were strictly monitored and serial EKG/troponins were unremarkable. Potassium was repleted > 4 to prevent hypercarbia and hypochloremia. Echocardiogram showed EF >65% with severe aortic stenosis and severe pulmonary hypertension. Patient was monitored without antibiotics, and oxygen saturation was maintained 91-92% with TRC/nebs. IV diuresis was changed to oral lasix 60mg bid. Please follow up with a hardening machine operator helper to manage oral diuretic dose monitoring kidney function 2. Chronic hypercarbic respiratory failure 2/2 obesity hypoventilation syndrome with sleep apnea and central apnea: We continued bedtime CPAP, and patient was compliant with it. Please keep the head of bed elevated. 3. Chronic A.fib on coumadin: Iniaitlly, pt had supratherapeutic INR 4.3. When INR became therapeutic, she was given po coumadin. However INR became supratherapeutic again after 08/09 (3.81 -> 5.03 -> 5.10) probably related to right heart dysfunction with congested liver. Po coumadin was held and INR should be checked in 2-3 days to dose coumadin. Please follow up with cardiology for coumadin dose adjustment. 4. Chronic cor pulmonae due to COPD/pulmonary hypertension/Rt. heart failure with lower ext edema. See above management. 5. Chronic abdominal pain with hyperbilirubinemia: She had hx of pseudomonas UTI and C.diff colitis when she was admitted in surgical ICU at [facility]. Also, she was recently evaluated for abdominal pain last week at [facility]. At that time, CT abdomen(07/22/16) showed that colonic dilatation is improved, no finding suggest mechanical bowel obstruction, there is minimal cranial fluid in the pelvis of uncertain etiology. As she c/o of abdominl pain during this admission with 3 episodes of watery diarrhea, C Diff was checked and it was negative. Regarding hyperbilirubinemia, total bilirubin level improvedm from 2.4-> 1.8 -> 1.6 -> 1.5 on 08/09. Direct bilirubin 0.6 -> 0.5. LFT remained normal. Alkaline phosphatase within normal. LDH elevated to 857. These findings could be secondary to congestive heart failure with hepatic congestion. Code DNR/DNI (changed from full code) DVT prophylaxis warfarin Allergies: Coded Allergies: Penicillins (RASH 04/12/16) adhesive tape (RASH/ITCHING 04/12/16) cephalexin (HIVES 04/12/16) Significant Procedures: ECHO 08/06/16 Moderate concentric left ventricular hypertrophy. Normal left ventricular ejection fraction visually estimated at >65 No obvious regional wall motion abnormalities. The right ventricle is mildly dilated. The right atrium is mildly dilated. Moderate left atrial dilatation. There is moderate thickening/calcification of the mitral valve leaflets with somewhat reduced opening. There is probably mild mitral stenosis by gradient. There is moderate to marked calcification of mitral annulus posteriorly. There is also calcification of the chordal apparatus. There is mild mitral regurgitation. There is a bioprosthetic aortic valve. The leaflets are heavily calcified and the opening is at least moderately restricted. There is severe aortic stenosis by gradient. Mild aortic regurgitation. Right ventricular systolic pressure estimated to be elevated at >75 mmHg. Severe pulmonary hypertension. Pertinent Lab Results: INR: 5.10 on 08/11/16 holding coumadin Disposition Summary Disposition Principal Diagnosis: Acute hypoxemic and hypercarbic respiratory failure 2/2 acute Lt & Rt. congestive heart failure Chronic hypercarbic respiratory failure 2/2 obesity hypoventilation syndrome with sleep apnea and central apnea Chronic A.fib on coumadin, supratherapeutic INR Chronic cor pulmonae due to COPD/pulmonary hypertension/Rt. heart failure Chronic abdominal pain with hyperbilirubinemia Additional Diagnosis: HTN HLD Depression Dementia Discharge Disposition: SNF Discharge Instructions General Discharge Information Code Status: Do Not Resucitate/Intubat Patient's Diet: Heart healthy diet Patient's Activity: Increase as tolerated Follow-Up Instructions/Appts: Please follow up with a primary care doctor within 1 week after discharge Please follow up with a hardening machine operator helper for managemen of CHF / A.fib on coumadin Please check INR and dose coumadin accordingly (goal INR 2-3). Please keep head of bed elevated Please conitnue CPAP at bedtime Please continue physical therapy Medications at Discharge Discharge Medications: Stop taking the following medications: Furosemide (Furosemide) 40 MG TABLET ORAL Every Morning Qty = 270 Furosemide (Lasix) 40 MG TABLET ORAL 5 PM Continue taking these medications: Escitalopram Oxalate (Escitalopram Oxalate) 20 MG TABLET 0.5 Tablet ORAL DAILY Qty = 90 Comments: PER PT Metoprolol Succinate (Metoprolol Succinate) 50 MG TAB.ER.24H 1 Tablet ORAL DAILY Qty = 180 Comments: PER PT VERBALLY VERIFIED Atorvastatin Calcium (Atorvastatin Calcium) 20 MG TABLET 1 Tablet ORAL DAILY Qty = 90 Comments: PER PT Solifenacin Succinate (Vesicare) 10 MG TABLET 1 Tablet ORAL EVERY 48 HOURS (Every 2 days) Qty = 90 Comments: PER PT Calcium Carbonate (Calcium) 600 MG TABLET 1 Tablet ORAL DAILY Comments: PER PT Multivitamin (Multi-Day Vitamins) 1 EACH TABLET 1 Tablet ORAL DAILY Comments: PER PT Polyethylene Glycol 3350 (Miralax) 17 GM POWD.PACK 0.5 Packet ORAL DAILY Instructions: dissolve in water Comments: PER PT Warfarin Sodium (Warfarin Sodium) 2 MG TABLET 1 Tablet ORAL As Directed Qty = 135 Instructions: PLEASE HOLD COUMADIN ON 08/11 AND CHECK INR ON 08/12 Please dose coumadin to keep INR between 2-3. Comments: PER PT TAKES ALL DAYS EXCEPT TU AND TH Potassium Chloride (K-Tab ER) 20 MEQ TABLET.ER 1 Tablet ORAL DAILY Comments: PER PT Warfarin Sodium (Coumadin) 3 MG TABLET 1 Tablet ORAL As Directed Instructions: PLEASE HOLD COUMADIN ON 08/11. Please dose coumaidin to keep the INR between 2-3 Comments: PER PT TUES AND THURS Amlodipine Besylate (Amlodipine Besylate) 5 MG TABLET 1 Tablet ORAL DAILY Pantoprazole Sodium (Protonix) 40 MG TABLET.DR 1 Tablet ORAL DAILY Albuterol Sulfate (Albuterol Sulfate) 0.63 MG/3 ML VIAL.NEB 1 Vial Inhale Solution via Nebulizer EVERY 2 HOURS NEEDED as needed for SHORTNESS OF BREATH Polyethylene Glycol 3350 (Miralax) 17 GRAM POWD.PACK 1 Packet ORAL DAILY as needed for CONSTIPATION Sennosides (Senna) 8.6 MG TABLET 2 Tablet ORAL BED TIME as needed for CONSTIPATION Calcium Carbonate (TUMS) 200 MG CALCIUM (500 MG) TAB.CHEW 3 Tablet ORAL TWICE DAILY Start taking the following new medications: Furosemide (Furosemide) 40 MG TABLET 1.5 Tablet ORAL DAILY Qty = 30 Refills = 1 Copies To: GOPAL VASQUEZ,JONES Flower; AMADO VASQUEZ,JUDE Tyler; GEE VASQUEZ,VINAY Traore; LENORE VASQUEZ,[facility]
--- NOTE | 2016-08-11 06:02 | PN- Housestaff ---
Subjective Follow-up For: - CHF exacerbation Subjective: She was comfortable this morning. She did not have any complaints. Vitals remained stable overnight. Review of Systems Constitutional: Reports: see HPI. Objective Last 24 Hrs of Vital Signs/I&O Vital Signs Date Time Temp Pulse Resp B/P Pulse O2 O2 Flow FiO2 Ox Delivery Rate 08/11 0042 69 89 08/10 2230 98.7 80 18 120/90 96 Nasal Cannula 08/10 1600 Nasal 3.0L Cannula 08/10 1351 99.0 80 18 118/90 93 Nasal 3.0L Cannula 08/10 0929 71 128/70 08/10 0929 71 128/70 08/10 0800 Nasal 3.0L Cannula Intake & Output 08/11 0800 08/11 0000 08/10 1600 Intake Total 240 Output Total 350 800 Balance -350 -560 Intake, Oral 240 Number 1 Bowel Movements Output, Urine 350 800 Physical Exam General Appearance: No Acute Distress Other Physical Findings: General Exam: AAOx3, No acute distress, Skin: No rashes, no breakdown HEENT: PERRLA, EOMI Neck: Supple, No JVD No cervical lymphadenopathy CVS: Reg Rate, Normal S1,S2, systolic murmur Resp: Normal air entry, no ronchi/rales Abdomen: Soft, No tenderness, Normal Bowel Sounds Neuro: Normal Speech, Strength 5/5 b/l x 4 extremities, Sensation intact, CN III -XII NL, Reflexes 2+ Extremities: No cyanosis, no pedal edema Current Medications: Current Medications Sig/Saulo Start time Last Medication Dose Route Stop Time Status Admin Acetaminophen 650 MG .STK-MED ONE 08/10 1715 DC PO 08/10 171 Acetaminophen 650 MG Q4P PRN 08/08 1915 AC 08/10 PO 1719 Amlodipine Besylate 5 MG DAILY 08/05 999 AC 08/10 PO 0929 Atorvastatin Calcium 20 MG DAILY@1700 08/05 1700 AC 08/10 PO 1719 Docusate Sodium 100 MG DAILY NEEDED PRN 08/05 1530 AC PO Escitalopram Oxalate 10 MG DAILY 08/05 1000 AC 08/10 PO 0929 Furosemide 60 MG BID 08/100 AC 08/10 PO 2336 Furosemide 60 MG BID 08/08 2200 DC 08/10 IV 0929 Metoprolol Succinate 50 MG DAILY 08/05 999 AC 08/10 PO 0929 Oxybutynin Chloride 10 MG Q48 08/06 1000 AC 08/10 PO 0930 Patient Medication 1 UNIT 2200 08/10 2200 DC 08/10 Teaching ED 08/10 2201 2343 Patient Medication 1 ED .STK-MED ONE 08/10 1406 [facility] ED 08/10 1407 Polyethylene Glycol 17 GM DAILY PRN 08/04 1930 AC PO Potassium Chloride 40 MEQ BID 08/05 2200 AC 08/10 PO 2336 Senna 187 MG AT BEDTIME PRN 08/05 1530 AC PO Last 24 Hrs of Lab/Noel Results Last 24 Hrs of Labs/Mics: Laboratory Tests 08/10/16 0617: Anion Gap 8, Estimated GFR 59 L, BUN/Creatinine Ratio 18.9, PT 52.0 *H, INR 5.03 *H, CBC w Diff NO MAN DIFF REQ, RBC 4.28, MCV 87.6, MCH 28.0, RDW 19.8 H, MPV 9.5, Gran % 80.2 H, Lymphocytes % 6.0 L, Monocytes % 8.4, Eosinophils % 5.2 H, Basophils % 0.2, Absolute Granulocytes 10.2 H, Absolute Lymphocytes 0.8 L, Absolute Monocytes 1.1 H, Absolute Eosinophils 0.7, Absolute Basophils 0, PUBS MCHC 32.0 L Assessment/Plan Assessment: Mrs. Hooker is a 85-year-old female with past medical history significant for hypertension, Afib on coumadin, aortic valve(bioprosthetic), obstructive sleep apnea on CPAP, chronic LE edema on lasix, pulmonary HTN, recent history of fall and fracture of left hip and multiple ribs, BIBA from assisted living facility ( [facility]) with CC of SOB and weaknes. CTA 1. Markedly limited evaluation, as detailed above. No central pulmonary embolus identified. 2. Patchy bilateral lung consolidations combined with interstitial prominence and small bilateral pleural effusions in the setting of cardiomegaly. The constellation of these findings is most consistent with congestive heart failure exacerbation, although a superimposed infectious process is not excluded. 3. Reflux of contrast into the hepatic veins is most suggestive of right heart dysfunction. 4. Mediastinal lymphadenopathy, increased since the prior study. 5. Other nonacute findings, as above. Chest x-ray IMPRESSION: There is cardiomegaly and increased interstitial markings with prominent central pulmonary vasculature, consistent with congestive heart failure. Underlying consolidation at the left base cannot be excluded. ECHO Moderate concentric left ventricular hypertrophy. Normal left ventricular ejection fraction visually estimated at >65 No obvious regional wall motion abnormalities. The right ventricle is mildly dilated. The right atrium is mildly dilated. Moderate left atrial dilatation. There is moderate thickening/calcification of the mitral valve leaflets with somewhat reduced opening. There is probably mild mitral stenosis by gradient. There is moderate to marked calcification of mitral annulus posteriorly. There is also calcification of the chordal apparatus. There is mild mitral regurgitation. There is a bioprosthetic aortic valve. The leaflets are heavily calcified and the opening is at least moderately restricted. There is severe aortic stenosis by gradient. Mild aortic regurgitation. Right ventricular systolic pressure estimated to be elevated at >75 mmHg. Severe pulmonary hypertension. Assessment and plan - * Patient is transferred to the general medical floors * Continue PO lasix 60mg BID. * Check the BUN and creatinine tomorrow * Keep oxygen saturation above 92% * TRC * Continue CPAP at bedtime and when necessary * Keep bed head elevated, aspiration precaution * Strict intake and output charting. * Hold Warfarin today. INR > 5. Advised to hold Coumadin today and tomorrow. Recheck INR in the a.m. and dose Coumadin accordingly. Informed the nurse, to relay the information to STR while signing out. * Continue home medication * Diet-heart healthy diet * DVT prophylaxis-ALP S/Warfarin * CODE STATUS-DNR/DNI Problem List: 1. Atrial fibrillation 2. CHF (congestive heart failure) Pain Ratin Pain Location: None Pain Goal: Pain 4 or less Pain Plan: Tylenol when necessary Tomorrow's Labs & Rationales: No labs necessary. The patient did be discharged today. Consulting Request: Consulting Specialty: Pulmonary Disease Consulting Physician: Dr. Freitas Reason for Consult: Acute hypoxemic/hypercarbic resp.failure
[2016-08-11 06:44] VITALS: BP 108/64
[2016-08-11] MEDS ORDERED: FUROSEMIDE40 M1 PO (09:06)
[2016-08-11 09:24] LABS: PT 52.7 SEC (9.4-12.5)
--- NOTE | 2016-08-11 09:34 | PN- Att Addend ---
Attending Addendum Attending Brief Note Patient reports improved respiratory symptoms this morning General Appearance: Alert, No Acute Distress Skin: Grossly normal HEENT: PEERLA Neck: Supple, No JVD Cardiovascular: Regular Rate, Normal S1, Normal S2, No Murmurs Lungs: Decreased air entry all lung cerrato, right basilar crackles Abdomen: Normal Bowel Sounds, Soft, No Tenderness Neurological: Normal Speech, Strength at 5/5 X4 Ext, Cranial Nerves 3-12 NL, Reflexes 2+ Extremities: 1+ pedal edema Vascular: Normal Pulses Assessment 85-year-old female with history of hypertension, atrial fibrillation on Coumadin , aortic valve replacement, central apnea on CPAP, chronic lower extremity edema presenting with acute respiratory distress. CTA negative for VTE however there is suggestion of bilateral opacifications with interstitial edema. her respiratory symptoms are secondary to fluid overload. Echo shows severe aortic stenosis and pulmonary hypertension with preserved ejection fraction. We will transition patient to oral Lasix and hold Coumadin for supratherapeutic INR. Plan Lasix 60 mg twice a day hold Coumadin for supratherapeutic INR Continue CPAP at bedtime DNI/DNR May discharge patient to short-term rehabilitation Current Medications Sig/Saulo Start time Last Medication Dose Route Stop Time Status Admin Acetaminophen 650 MG .STK-MED ONE 08/10 1716 DC PO 08/10 1717 Acetaminophen 650 MG Q4P PRN 08/08 1915 AC 08/10 PO 1719 Amlodipine Besylate 5 MG DAILY 08/05 1000 AC 08/10 PO 0929 Atorvastatin Calcium 20 MG DAILY@1700 / 1700 AC 08/10 PO 1719 Docusate Sodium 100 MG DAILY NEEDED PRN 08/05 1530 AC PO Escitalopram Oxalate 10 MG DAILY 08/05 1000 AC 08/10 PO 0929 Furosemide 60 MG BID 08/10 2200 AC 08/10 PO 2336 Furosemide 60 MG BID 08/08 2200 DC 08/10 IV 0929 Metoprolol Succinate 50 MG DAILY 08/05 1000 AC 08/10 PO 0929 Oxybutynin Chloride 10 MG Q48 08/06 1000 AC 08/10 PO 0930 Patient Medication 1 UNIT 08/10 220 DC 08/10 Teaching ED 08/10 2201 2343 Patient Medication 1 ED .STK-MED ONE 08/10 1406 PA Teaching ED 08/10 1407 Polyethylene Glycol 17 GM DAILY PRN 08/04 1930 AC PO Potassium Chloride 40 MEQ BID 08/05 2200 AC 08/10 PO 2336 Senna 187 MG AT BEDTIME PRN 08/05 1530 AC PO Laboratory Tests 08/11 0810 Chemistry Sodium Pending Potassium Pending Chloride Pending Carbon Dioxide Pending Anion Gap Pending BUN Pending Creatinine Pending BUN/Creatinine Ratio Pending Coagulation PT (9.4 - 12.5 SEC) 52.7 *H INR (0.90 - 1.19) 5.10 *H Vital Signs Date Time Temp Pulse Resp B/P Pulse O2 O2 Flow FiO2 Ox Delivery Rate 08/11 0644 98.7 77 18 108/64 95 Nasal 4.0L Cannula 08/11 0042 69 89 08/10 2230 98.7 80 18 120/90 96 Nasal Cannula 08/10 1600 Nasal 3.0L Cannula 08/10 1351 99.0 80 18 118/90 93 Nasal 3.0L Cannula
--- NOTE | 2016-08-11 12:32 | PN- Pulmonary ---
Subjective HPI/Critical Care Issues: Patient reports improved respiratory symptoms this morning Objective Current Medications: Current Medications Sig/Saulo Start time Last Medication Dose Route Stop Time Status Admin Acetaminophen 650 MG .STK-MED ONE 08/10 1716 DC PO 08/10 1717 Acetaminophen 650 MG Q4P PRN 08/08 1915 AC 08/10 PO 1719 Amlodipine Besylate 5 MG DAILY 08/05 1000 AC 08/11 PO 1011 Atorvastatin Calcium 20 MG DAILY@1700 08/05 1700 AC 08/10 PO 1719 Docusate Sodium 100 MG DAILY NEEDED PRN 08/05 1530 AC PO Escitalopram Oxalate 10 MG DAILY 08/05 1000 AC 08/11 PO 1008 Furosemide 60 MG BID 08/10 2200 AC 08/11 PO 1008 Metoprolol Succinate 50 MG DAILY 08/05 1000 AC 08/11 PO 1011 Oxybutynin Chloride 10 MG Q48 08/06 1000 AC 08/10 PO 0930 Patient Medication 1 UNIT 08/10 [place] 08/10 [facility] ED 08/10 2201 2343 Patient Medication 1 ED .STK-MED ONE 08/10 1406 [facility] ED 08/10 1407 Polyethylene Glycol 17 GM DAILY PRN 08/04 1930 AC PO Potassium Chloride 40 MEQ BID 08/05 220 AC 08/11 PO 1009 Senna 187 MG AT BEDTIME PRN 08/05 1530 AC PO Vital Signs & I&O Last 24 Hrs of Vitals and I&O: Vital Signs Date Time Temp Pulse Resp B/P Pulse O2 O2 Flow FiO2 Ox Delivery Rate 08/11 1118 Nasal 4.0L Cannula 08/11 1011 116/78 08/11 1011 116/80 08/11 0644 98.7 77 18 108/64 95 Nasal 4.0L Cannula 08/11 0042 69 89 08/11 0000 96 CPAP 3.0L 08/10 2230 98.7 80 18 120/90 96 Nasal Cannula 08/10 1600 Nasal 3.0L Cannula 08/10 1351 99.0 80 18 118/90 93 Nasal 3.0L Cannula Intake & Output 08/11 1600 08/11 0800 08/11 0000 Intake Total 0 Output Total 750 350 Balance -750 -350 Intake, IV 0 Intake, Oral 0 Number 1 Bowel Movements Output, Urine 750 350 Laboratory Tests 08/11 08/10 0810 0617 Chemistry Sodium (137 - 145 mmol/L) 145 141 Potassium (3.5 - 5.1 mmol/L) 4.7 4.7 Chloride (98 - 107 mmol/L) 96 L 95 L Carbon Dioxide (22 - 30 mmol/L) 37 H 38 H Anion Gap (5 - 16) 12 8 BUN (7 - 17 mg/dL) 22 H 17 Creatinine (0.5 - 1.0 mg/dL) 0.9 0.9 Estimated GFR (>60 ml/min) 59 L 59 L BUN/Creatinine Ratio (7 - 25 %) 24.4 18.9 Coagulation PT (9.4 - 12.5 SEC) 52.7 *H 52.0 *H INR (0.90 - 1.19) 5.10 *H 5.03 *H Hematology CBC w Diff NO MAN DIFF REQ WBC (4.8 - 10.8 /CUMM) 12.7 H RBC (4.20 - 5.40 /CUMM) 4.28 Hgb (12.0 - 16.0 G/DL) 12.0 Hct (37 - 47 %) 37.5 MCV (81.0 - 99.0 FL) 87.6 MCH (27.0 - 31.0 PG) 28.0 RDW (11.5 - 14.5 %) 19.8 H Plt Count (130 - 400 /CUMM) 454 H MPV (7.4 - 10.4 FL) 9.5 Gran % (42.2 - 75.2 %) 80.2 H Lymphocytes % (20.5 - 51.1 %) 6.0 L Monocytes % (1.7 - 9.3 %) 8.4 Eosinophils % (0 - 5 %) 5.2 H Basophils % (0.0 - 2.0 %) 0.2 Absolute Granulocytes (1.4 - 6.5 /CUMM) 10.2 H Absolute Lymphocytes (1.2 - 3.4 /CUMM) 0.8 L Absolute Monocytes (0.10 - 0.60 /CUMM) 1.1 H Absolute Eosinophils (0.0 - 0.7 /CUMM) 0.7 Absolute Basophils (0.0 - 0.2 /CUMM) 0 PUBS MCHC (33.0 - 37.0 G/DL) 32.0 L Impression/Plan Impression/Plan Impression/Plan: Physical Exam General Appearance Alert, Oriented X3, Cooperative, No Acute Distress Skin No Rashes, No Breakdown, No Significant Lesion HEENT Atraumatic, PERRLA, EOMI, Mucous Membr. moist/pink Neck Supple Cardiovascular irrigular irrigular Lungs decrease air entery, expiratory wheeze Abdomen Normal Bowel Sounds, Soft, mild tenderness all over Neurological Normal Speech, Strength at 5/5 X4 Ext, Normal Tone, Sensation Intact, Cranial Nerves 3-12 NL, Reflexes 2+ Extremities No Clubbing, No Cyanosis, bilateral lower extermity chronic erthyma, trace edemma Vascular Normal Pulses IMPRESSION This is a lady with significant obstructive sleep apnea and central apnea, compliant with CPAP, chronic atrial fibrillation on warfarin, previous aortic replacement with bioprosthetic valve, now has moderate to severe aortic stenosis , mild mitral stenosis and regurgitation (noted in the recent echocardiogram done at [facility]), chronic hypercarbic respiratory failure, severe pulmonary hypertension related to valvular heart disease and her sleep apnea with chronic hepatic congestion, Chronic cor pulmonale, significant chronic lung disease with both obstructive restrictive pulmonary physiology, 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 difficile colitis, now comes in with * Resolved Acute hypoxemic and hypercarbic respiratory failure related to acute systolic heart failure due to significant valvular heart disease and diastolic dysfunction. Pt has severe , MS * Chronic hypercarbia related to obesity hypoventilation syndrome with sleep apnea and central apnea, Compliant on bedtime CPAP. * Severe pulmonary hypertension with congested liver with high INR, high bilirubin related to severe pulmonary hypertension from valvular heart disease and sleep apnea. * Severe restrictive and obstructive lung disease with poor pulmonary reserve with recurrent Pseudomonas infection in the past with no active evidence of infection. * Chronic atrial fibrillation on warfarin now with supratherapeutic INR, probably related to right heart dysfunction with congested liver * Chronic cor pulmonale due to obstructive restrictive lung disease and from pulmonary hypertension with right heart failure with lower extremity edema and congested liver. * Recent Pseudomonas UTI and C. difficile. RECOMMENDATION * Continue diuresis. Keep potassium more than 4 * Continue CPAP at bedtime and if tolerated in the afternoon if she needs it. * Use as needed nebulizer therapy for wheezing. * Keep the head of bed elevated. * keep inr in therapeutic range * Keep O2 sats around 91-92% to prevent further hypercarbia. Reduce oxygen if tolerated to keep O2 sat at 92%. Ok to dc Overall prognosis is poor and a long run. DNR and DNI
[2016-08-11 13:42] VITALS: BP 114/80
[2016-08-11 16:22] VITALS: BP 114/80
== END 2016-08-11 17:05 | DRG 291 ==
LOC: ENRESERVTM → ENRESERVDT → ERH 11:18 → 2NA 16:28 → ERHI 16:28 → 1NO 16:28 → 2NA 08-08 18:23
PROVIDERS: Internal Medicine; Internal Medicine Endocrinology, Diabetes & Metabolism; Physician Assistant; Student in an Organized Health Care Education/Training Program; ADMIT Internal Medicine
PROC: 5A09557 Assistance with Respiratory Ventilation, Greater than 96 Consecutive Hours, Continuous Positive Airway Pressure (ICD-10-PCS; principal; 2016-08-04)
DX: I11.0 Hypertensive heart disease with heart failure (principal); J96.21 Acute and chronic respiratory failure with hypoxia; I27.2 Other secondary pulmonary hypertension; E66.2 Morbid (severe) obesity with alveolar hypoventilation; Z68.41 Body mass index [BMI] 40.0-44.9, adult; Z99.81 Dependence on supplemental oxygen; F03.90 Unspecified dementia, unspecified severity, without behavioral disturbance, psychotic disturbance, mood disturbance, and anxiety; J96.22 Acute and chronic respiratory failure with hypercapnia; I50.23 Acute on chronic systolic (congestive) heart failure; I48.2 Chronic atrial fibrillation; Z79.01 Long term (current) use of anticoagulants; E78.5 Hyperlipidemia, unspecified; Z95.4 Presence of other heart-valve replacement; I08.0 Rheumatic disorders of both mitral and aortic valves; R10.9 Unspecified abdominal pain; G89.29 Other chronic pain; E80.6 Other disorders of bilirubin metabolism; F32.9 Major depressive disorder, single episode, unspecified
CPT/HCPCS: 1NSP; 2NASP; 36415; 81001; 82436; 87040; 87070; 87086; 87804; 87804-59; 93005; 93010; 93306; 96374; J1940; J2280; J2405; J3370; J7060